=== PATIENT | female | born 1940 | race Caucasian/White ===

== ENCOUNTER → 2017-03-20 | Outpatient (CLI) | payer BC ==
[~2017-03-20] MED LIST: ATV/1 PO; ATV1 PO; CLX/20 PO; LSN20 PO; MULT-506 PO; OMEG10007 PO; TPRSR100 PO
--- NOTE | 2017-03-20 13:00 | DIAGNOSTIC IMAGING REPORT ---
R HIP UNILATERAL 2 VIEWS CLINICAL HISTORY: Right hip pain following fall. COMPARISON: Abdominal series March 26, 2012. FINDINGS: Lumbosacral fusion with discectomy and posterior decompression is incidentally noted. Alignment of the left hip is anatomic. No acute fracture is identified. There is mild osteophytosis of the right hip. IMPRESSION: 1. No acute fracture or dislocation of the right hip. 2. Mild osteoarthritis of the right hip. Electronically signed by: Charles Ca M.D. 03/20/2017 12:59 PM Dictated Date/Time: 03/20/2017 12:58 PM
== END | disposition home or self-care (01) ==
LOC: C.RADBC 12:41
PROVIDERS: ATTEND Family Medicine
DX: M25.551 Pain in right hip (principal); W19.XXXA Unspecified fall, initial encounter

== ENCOUNTER 2020-07-02 06:51 | Observation (INO) ==
[2020-07-02] MEDS ORDERED: oxyCODONE/ACETAMINOPHEN 5mg/325mg TAB PO STA (07:16)
[2020-07-02] MEDS ORDERED: IBUPROFEN 600 MG TAB PO STA (07:16)
--- NOTE | 2020-07-02 07:56 | Emergency Department Note ---
Impression & Plan Acute pain of left knee, Inability to bear weight ED Provider Note CHIEF COMPLAINT: Left knee pain HISTORY OF PRESENT ILLNESS: This 80-year-old female patient presents to the emergency department by private vehicle after sustaining an injury to the left knee yesterday. Patient states that she twisted the knee while making her bed, she is not sure how she twisted it, but she mostly complains of pain on the inside and back of the knee. She was seen in the emergency department yesterday for after the injury and had x-rays, which she reports did not show any fracture. She states "they put me in a knee brace but it was too big and kept sliding off." She states that she has been having severe pain and has not been able to put any weight on the knee. She states that she tried to use her walker at home, but she is not able to get around very well because of the pain. She does have a history of SI joint pain and is prescribed oxycodone for this, she states that she tried her oxycodone and it did not help her pain at all. She has not tried any other medications for the pain. Her last dose of oxycodone was 2 AM this morning. The patient denies any other injuries besides their knee. She describes the pain as throbbing and rates it 10/10. She has not had previous injuries to this knee, but does note that she had surgery to her right knee and states "they messed that one up, it has never been right since." REVIEW OF SYSTEMS: A complete 10 point review of systems was reviewed with the patient with pertinent positives and negatives as per history of present illness. All else were negative. ALLERGIES: Reviewed in chart with the patient MEDICATIONS: Reviewed in chart with the patient PMH: Anxiety, depression, hypertension, dyslipidemia, IBS, chronic SI joint pain, osteoarthritis, history of right knee arthroplasty and lumbar fusion SOCIAL HISTORY: Lives at home with her , she is a current every day smoker PHYSICAL EXAM: Vital Signs: Reviewed Nurse's notes, vital signs stable. CONSTITUTIONAL: Pleasant and cooperative. No acute distress, but appears uncomfortable from pain. Well appearing and well nourished. HEENT: Normocephalic, atraumatic. NECK: Supple, full active range of motion without discomfort. RESPIRATORY: Clear to auscultation bilaterally with no wheezing, crackles, rhonchi or stridor. Equal expansion bilaterally. CARDIOVASCULAR: Regular rate and rhythm with no murmurs, rubs or gallops. Normal peripheral perfusion, 2+ pulses in all 4 extremities. No peripheral edema. GASTROINTESTINAL: Soft, nontender, nondistended. No rebound tenderness or guarding. No palpable masses or HSM. Bowel sounds present in all quadrants. No CVA tenderness bilaterally. MUSCULOSKELETAL: The left knee is moderately swollen. There is no significant ecchymosis. There is a moderate joint effusion present. The patient is tender to palpation throughout the knee, but most tender along the medial and posterior aspect. There is medial joint line tenderness. The patella does not subluxate. Range of motion is severely limited due to pain. Strength of the quads and hamstrings is 4/5. The foot and toes are warm and well-perfused. Dorsalis pedis pulse 2+. Sensation to pain and light touch is intact. Capillary refill less than 2 seconds. INTEGUMENTARY: No rash or other significant dermatologic conditions noted. NEUROLOGIC: Alert and oriented X 4 with normal affect. Cranial nerves II-XII grossly intact. No focal neurologic deficits noted. Normal strength and sensation in all 4 extremities. Normal speech. ED COURSE AND MEDICAL DECISION MAKING: CC: Patient presenting with complaint of left knee pain/swelling DIFFERENTIAL DIAGNOSIS: Includes, but not limited to knee sprain/strain, contusion, hematoma, fracture, dislocation, ligamentous injury, effusion, among others. MEDICATION RECONCILIATION: I attest that I have personally reviewed the patient's current medication list. INITIAL VITAL SIGNS REVIEW: I reviewed the patient's initial vital signs and interpret them as follows: T: Afebrile; BP: Hypertensive; HR: Within normal limits; RR: Within normal limits; Pulse Ox: Within normal limits on room air. MDM SUMMARY: Patient was evaluated at bedside, history and physical exam performed. Patient is alert and oriented, in no acute distress, resting in the stretcher. She does appear to be in a good bit of pain anytime that she moves the knee. She is neurovascularly intact distal to the injury. Review of the patient's chart noting her visit from yesterday, x-rays did not show any acute fracture. Orders were placed for CT imaging of the left knee given the amount of pain and swelling to ensure there is not a missed fracture. I discussed pain management with the patient, she did not want to have an IV, therefore she was given p.o. Percocet as well as p.o. Motrin for her pain. Patient discussed with Dr. Capps, who also evaluated the patient and agrees with my assessment, plan, and disposition. CT imaging again demonstrates a moderate joint effusion without any evidence for fracture or dislocation. 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 Patient reassessed multiple times throughout ED stay, she has remained hemodynamically stable and reports that her pain is somewhat improved after the Percocet and Motrin, but she continues to be very uncomfortable with even minimal movement of the knee. I spoke at length at bedside with the patient and her , he is concerned about taking her home because she is not able to do anything for herself because of the amount of pain she is in and was not able to even get to the bathroom with her walker. Given the amount of pain and resulting ambulatory dysfunction, I did not feel the patient was safe for discharge home and recommended that she be brought into the hospital for pain management and possibly to establish therapy and/or surgical planning. The patient and her were agreeable to this plan. I spoke on the phone with Dr. Girard, [facility] Hospitalist, who agrees to evaluate the patient for the admission. The patient was stable at time of admission. The chart was completed utilizing [employer] Speech voice recognition software. Grammatical errors, random word insertions, pronoun errors, and incomplete sentences are an occasional consequence of this system due to software limitations, ambient noise, and hardware issues. Any formal questions or concerns about the content, text, or information contained within the body of this dictation should be directly addressed to the nurse practitioner for clarification. Past Med/Surg History Medical History Anxiety Carotid artery plaque Chronic SI joint pain Right Collagenous colitis Depression Dyslipidemia HTN (hypertension) Irritable bowel syndrome Lower back pain Osteoarthritis Spinal stenosis Tobacco use Surgical History History of arthroplasty of right knee History of colonoscopy History of lumbar fusion Laminectomy x1 then L3-5 fusion S/P NISH-BSO Social History Smoking Status: Current some day smoker Tobacco Type: Cigarettes Cigarettes Per Day: 4; Second Hand Exposure: No; Hx Alcohol Use: No Hx Substance Use: No Preferred Language: [place]ar[place]uan Communication Ability: Effective Visual Impairment: No Limitations Hearing Ability: Normal Beliefs That Will Affect Care: None marital status: Current Living Situation: Spouse current occupational status: retired Feels Safe at Home: Yes Assistive Devices: None Assistive Devices Comment: partial dentures Allergies Allergies Allergy/AdvReac Type Severity Reaction Status Date / Time Sulfa (Sulfonamide Allergy Unknown Nausea Verified 07/02/20 07:37 Antibiotics) amoxicillin AdvReac Intermediate N/V Verified 07/02/20 07:37 clavulanic acid AdvReac Intermediate N/V Verified 07/02/20 07:37 erythromycin base AdvReac Mild N/V Verified 07/02/20 07:37 nickel AdvReac Mild Redness of Verified 07/02/20 07:37 Skin Opioid Analgesics AdvReac Unknown N/V with Uncoded 07/02/20 07:37 all but morphine Home Meds Home Medications Medication Instructions Recorded Confirmed coenzyme Q10 10 mg capsule 10 mg PO HS cap 12/12/18 07/02/20 metoprolol succinate 100 mg PO QAM 04/16/20 07/02/20 oxycodone 5 mg PO Q6 PRN 04/16/20 07/02/20 lactobacillus combination no.4 0 mmu cells PO QAM 05/01/20 07/02/20 [Probiotic] alprazolam 0.5 mg PO DAILY PRN 07/01/20 07/02/20 budesonide 9 mg PO QAM 07/01/20 07/02/20 dicyclomine 10 mg PO TID PRN 07/01/20 07/02/20 pravastatin 10 mg PO DAILY 07/01/20 07/02/20 Results & Data (ED) Vital Signs Vital Signs - 24 hr 07/02/20 06:57 07/02/20 08:51 07/02/20 10:00 Temperature 37 C Temperature Source Oral Pulse Rate 79 Pulse Rate [Left Finger] 95 H Respiratory Rate 20 18 18 Respiratory Effort / Characteristics Non-Labored Non-Labored Respiratory Depth Shallow Normal Normal Respiratory Pattern Regular Regular Blood Pressure 193/76 H Blood Pressure [Right Arm] 137/56 L 120/87 Blood Pressure Mean 115 Blood Pressure Mean [Right Arm] 83 98 Blood Pressure Position [Right Arm] Lying Sitting Pulse Oximetry 97 96 97 Oxygen Delivery Method Room Air Room Air Room Air Sepsis Recent Fever Within 48 Hours No Sepsis New/Unexplained Change in Mental Status No Sepsis Action Taken by Nursing No Action Required Administered Medications Budesonide (Budesonide Ec 3 Mg Cap) 9 mg PO QAM LAURENCE Stop: 08/01/20 14:01 Last Admin: 07/02/20 15:29 Dose: 9 mg Documented by: [id number] Sodium Chloride (Nss 1000ml) 1,000 mls @ 15 mls/hr IV .Q24H LAURENCE Stop: 08/01/20 14:01 Last Admin: 07/02/20 15:38 Dose: Not Given Documented by: [id number] Ketorolac Tromethamine (Ketorolac Tromethamine 15 Mg/Ml Vial) 15 mg IV Q6H PRN PRN Reason: Pain Stop: 07/07/20 14:01 Last Admin: 07/02/20 16:32 Dose: 15 mg Documented by: [id number] Lactobacillus Acidoph/Casei/Rhamnos (Advanced Probiotic 1250 Mg Capsule) 2 cap PO QAM LAURENCE Stop: 08/01/20 14:29 Last Admin: 07/02/20 15:28 Dose: 2 cap Documented by: [id number] Oxycodone HCl (Oxycodone Hcl Ir 5 Mg Tab (Immediate Release)) 5 mg PO Q6 PRN PRN Reason: Pain Stop: 07/16/20 14:45 Last Admin: 07/02/20 14:50 Dose: 5 mg Documented by: [id number] Pravastatin Sodium (Pravastatin Sod 10 Mg Tab) 10 mg PO DAILY LAURENCE Stop: 08/01/20 14:01 Last Admin: 07/02/20 15:28 Dose: 10 mg Documented by: [id number] Discontinued Medications Ibuprofen (Ibuprofen 600 Mg Tab) 600 mg PO NOW STA Stop: 07/02/20 07:17 Last Admin: 07/02/20 07:23 Dose: 600 mg Documented by: [id number] Morphine Sulfate (Morphine Sulfate 4 Mg/Ml 1 Ml Carp\\Vial) Confirm Administered Dose 4 mg .ROUTE .STK-MED ONE Stop: 07/02/20 12:30 Last Admin: 07/02/20 12:31 Dose: 3 mg Documented by: [id number] Oxycodone/Acetaminophen (Oxycodone/Acetaminophen 5mg/325mg Tab) 1 tab PO NOW STA Stop: 07/02/20 07:17 Last Admin: 07/02/20 07:22 Dose: 1 tab Documented by: [id number] Imaging Data Radiologist's Impression: Knee CT 07/02/20 07:16 CT knee LT wo con HISTORY: 80 years-old Female twisting injury, eval fracture acute left knee pain status post twisting injury COMPARISON: Left knee radiographs 07/01/2020 TECHNIQUE: Multiple axial CT images of the left knee were obtained without the use of IV contrast. Additional 3-D rendering images were generated from a separate workstation and were submitted for review. A dose lowering technique was used consistent with the principals of JENNY. FINDINGS: Chondrocalcinosis with tricompartmental osteoarthritis, moderate within the medial compartment, mild within the lateral compartment and mild to moderate within the patellofemoral joint. Demineralized appearance of the bones. There is artifact which limits the study, likely from the adjacent right knee total joint arthroplasty. There is mild cortical depression involving both the medial and lateral tibial plateaus without discrete fracture line identified. No intra- articular loose body. Moderate sized joint effusion. 3.6 x 2.5 x 6.2 cm Purvis's cyst. Arterial calcifications. IMPRESSION: 1. Moderate size joint effusion without acute fracture or dislocation identified. The study however is limited secondary to artifact, likely from the patient's contralateral knee arthroplasty. If there is clinical concern for an occult fracture, MRI of the knee may be considered. 2. Moderate sized Purvis's cyst. 3. 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 ACT 112: Negative or not required by law. The above report was generated using voice recognition software. It may contain grammatical, syntax or spelling errors. Electronically signed by: Cb Cid M.D. 07/02/2020 8:08 AM Discharge Plan Visit Data Chief Complaint: Knee Injury/Pain Stated Complaint: LT. KNEE PAIN ED Provider: Lilian Capps ED Midlevel Provider: Dayanna Pillai. Discharge Problem: Acute pain of left knee, Inability to bear weight Patient Disposition: Admitted As Inpatient Condition: Good Discharge Instructions Interventions: ED Discharge Assessment Last Done: 07/02/20 13:44
--- NOTE | 2020-07-02 08:10 | CT Scan Report ---
CT knee LT wo con HISTORY: 80 years-old Female twisting injury, eval fracture acute left knee pain status post twistin g injury COMPARISON: Left knee radiographs 07/01/2020 TECHNIQUE: Multiple axial CT images of the left knee were obtained without the use of IV contrast. Ad ditional 3-D rendering images were generated from a separate workstation and were submitted for revie w. A dose lowering technique was used consistent with the principals of JENNY. FINDINGS: Chondrocalcinosis with tricompartmental osteoarthritis, moderate within the medial compartment, mild within the lateral compartment and mild to moderate within the patellofemoral joint. Demineralized ap pearance of the bones. There is artifact which limits the study, likely from the adjacent right knee total joint arthroplasty. There is mild cortical depression involving both the medial and lateral tib ial plateaus without discrete fracture line identified. No intra-articular loose body. Moderate sized joint effusion. 3.6 x 2.5 x 6.2 cm Purvis's cyst. Arterial calcifications. IMPRESSION: 1. Moderate size joint effusion without acute fracture or dislocation identified. The study however i s limited secondary to artifact, likely from the patient's contralateral knee arthroplasty. If there is clinical concern for an occult fracture, MRI of the knee may be considered. 2. Moderate sized Purvis's cyst. 3. 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 ACT 112: Negative or not required by law. The above report was generated using voice recognition software. It may contain grammatical, syntax o r spelling errors. Electronically signed by: Cb Cid M.D. 07/02/2020 8:08 AM
--- NOTE | 2020-07-02 09:51 | Emergency Department Note ---
ED Visit Note I have personally seen and evaluated the patient with the PA. I agree with the diagnosis and management decisions and have been personally involved in the case. Patient is having significant difficulty with the left knee pain, left knee effusion. She is unable to ambulate sufficiently with the immobilizer and to bear any weight. Given her advanced age and mobility issues, the patient will be evaluated by the hospitalist service for further management. Patient and are aware of this plan and agree. Please see GINNY Eugene's notes for further details of the history, physical and visit. .
--- NOTE | 2020-07-02 11:31 | History & Physical Report ---
Date of Service July 02, 2020 Assessment & Plan (1) Internal derangement of left knee: Mrs. Tate is an 80-year-old female with a history of Hypertension, Dyslipidemia, Carotid Artery Plaque, Collagenous Colitis, IBS, Depression / Anxiety, Spinal Stenosis, Chronic SI Joint Pain, and DJD s/p Right TKA who has presented to [facility] ER 2 days in a row with complaints of Severe Left Knee Pain, Swelling, and an Inability to Bear Weight following a twisting left knee injury that occurred on 07/01/20. Patient states that she woke up, stood up out of bed, and then turned around to start making the bed, fluffing the pillows. She apparently turned her upper body, but did not turn her feet -- and when she did this movement she developed a "cracking, crunching" noise/sensation in her left knee. She subsequently developed severe pain in the left knee, a joint effusion, swelling, and an inability to bear weight. Patient was put in a knee brace and was prescribed analgesics and discharged to home. Patient returned to the ER today due to severe left knee pain and inability to walk or bear weight. Patient states that she cannot stay at home because she cannot walk. She states that the knee brace did not fit her leg correctly and kept sliding down her leg -- so she has been unable to wear it. She tried to use her walker at home, but she was not able to get around very well because of the severe knee pain. She does have a history of SI joint pain and is prescribed Oxycodone for this -- she tried her Oxycodone and it did not help her pain at all (last dose of oxycodone was 2 AM this morning). She has not tried any other medications for the pain. The patient denies any other inj uries besides their knee. -- Admit to observation status. -- Consult [facility]. -- Pain Control. -- DVT prophylaxis. -- Ice. (2) Knee Injury: -- As outlined above. (3) HTN (hypertension): -- Continue Toprol XL 100 mg daily. (4) Dyslipidemia: -- Continue Pravastatin 10 mg daily. History of Present Illness Chief Complaint: -- Left Knee Injury/Effusion. -- Unable to walk or bear weight. Primary Care Provider: Neema Pop DO Mrs. Tate is an 80-year-old female with a history of Hypertension, Dyslipidemia, Carotid Artery Plaque, Collagenous Colitis, IBS, Depression / Anxiety, Spinal Stenosis, Chronic SI Joint Pain, and DJD s/p Right TKA who has presented to [facility] ER 2 days in a row with complaints of Severe Left Knee Pain, Swelling, and an Inability to Bear Weight following a twisting left knee injury that occurred on 07/01/20. Patient states that she woke up, stood up out of bed, and then turned around to start making the bed, fluffing the pillows. She apparently turned her upper body, but did not turn her feet -- and when she did this movement she developed a "cracking, crunching" noise/sensation in her left knee. She subsequently developed severe pain in the left knee, a joint effusion, swelling, and an inability to bear weight. Left Knee X-ray on 07/01/20 showed: 1. Soft tissue swelling and joint effusion without acute fracture. 2. Tricompartmental osteoarthritis, moderate within the medial compartment. Patient was put in a knee brace and was prescribed analgesics and discharged to home. Patient states that the knee brace did not fit her leg correctly and kept sliding down her leg -- so she has been unable to wear it. She tried to use her walker at home, but she was not able to get around very well because of the severe knee pain. She does have a history of SI joint pain and is prescribed Oxycodone for this -- she tried her Oxycodone and it did not help her pain at all (last dose of oxycodone was 2 AM this morning). She has not tried any other medications for the pain. The patient denies any other injuries besides their knee. Patient states that she cannot stay at home because she cannot walk. She requests to see Dr. Lopez. Allergies Allergy/AdvReac Type Severity Reaction Status Date / Time Sulfa (Sulfonamide Allergy Unknown Nausea Verified 07/02/20 07:37 Antibiotics) amoxicillin AdvReac Intermediate N/V Verified 07/02/20 07:37 clavulanic acid AdvReac Intermediate N/V Verified 07/02/20 07:37 erythromycin base AdvReac Mild N/V Verified 07/02/20 07:37 nickel AdvReac Mild Redness of Verified 07/02/20 07:37 Skin Opioid Analgesics AdvReac Unknown N/V with Uncoded 07/02/20 07:37 all but morphine Home Medications Medication Instructions Recorded Confirmed Type coenzyme Q10 10 mg capsule 10 mg PO HS cap 12/12/18 07/02/20 History metoprolol succinate 100 mg PO QAM 04/16/20 07/02/20 History oxycodone 5 mg PO Q6 PRN 04/16/20 07/02/20 History lactobacillus combination no.4 0 mmu cells PO QAM 05/01/20 07/02/20 History [Probiotic] alprazolam 0.5 mg PO DAILY PRN 07/01/20 07/02/20 History budesonide 9 mg PO QAM 07/01/20 07/02/20 History dicyclomine 10 mg PO TID PRN 07/01/20 07/02/20 History pravastatin 10 mg PO DAILY 07/01/20 07/02/20 History Past Med/Surg History Medical History Anxiety Carotid artery plaque Chronic SI joint pain Right Collagenous colitis Depression Dyslipidemia HTN (hypertension) Irritable bowel syndrome Lower back pain Osteoarthritis Spinal stenosis Tobacco use Surgical History History of arthroplasty of right knee History of colonoscopy History of lumbar fusion Laminectomy x1 then L3-5 fusion S/P NISH-BSO Social History Smoking Status: Current some day smoker Tobacco Type: Cigarettes Cigarettes Per Day: 4; Second Hand Exposure: No; Hx Alcohol Use: No Hx Substance Use: No Preferred Language: Romanian Communication Ability: Effective Visual Impairment: No Limitations Hearing Ability: Normal Beliefs That Will Affect Care: None marital status: Current Living Situation: Spouse current occupational status: retired Feels Safe at Home: Yes Assistive Devices: None Assistive Devices Comment: partial dentures Review of Systems Review of Systems: All systems reviewed & are unremarkable except as noted in Subjective Physical Exam Physical Exam: GENERAL: Patient in no acute distress. HEENT: Head is atraumatic, normocephalic. EOM's intact. Facies symmetric. No perioral cyanosis. NECK: No JVD. JVP is not elevated. Carotid upstrokes are + 2 bilaterally. No bruits are noted. CHEST/LUNGS: Clear to auscultation throughout all lung urrutia. No wheezes, rales, or crackles. CVS: S1 and S2 are regular without obvious murmurs, gallops, or rubs. PMI is nondisplaced. No lifts, heaves, or thrills. No abdominal aortic or renal bruits. ABDOMINAL EXAM: Bowel sounds are present. No masses, organomegaly, or tenderness. EXTREMITIES: No clubbing or cyanosis. No edema. Intact posterior tibial and radial pulses bilaterally. Left knee with an effusion. Tender to palpation along the anterior medial and anterolateral joint line. Some crepitus noted with even small movements. To painful cooperate with varus and valgus stress or anterior drawer sign. Large Purvis's cyst noted in the posterior left knee NEUROLOGIC EXAM: Patient is awake, alert, and oriented. Pleasant and cooperative. Answers questions appropriately. Speech is clear. Results & Data Results & Data ([facility]) Vital Signs (Past 12 Hours) Vital Signs Temp Pulse Pulse Resp BP BP Pulse Ox 07/02/20 10:00 95 H 18 120/87 97 07/02/20 08:51 18 137/56 L 96 07/02/20 06:57 37 C 79 20 193/[address] SCAN LEFT KNEE 07/02/20: Chondrocalcinosis with tricompartmental osteoarthritis, moderate within the medial compartment, mild within the lateral compartment and mild to moderate within the patellofemoral joint. Demineralized appearance of the bones. There is artifact which limits the study, likely from the adjacent right knee total joint arthroplasty. There is mild cortical depression involving both the medial and lateral tibial plateaus without discrete fracture line identified. No intra- articular loose body. Moderate sized joint effusion. 3.6 x 2.5 x 6.2 cm Purvis's cyst. Arterial calcifications. IMPRESSION: 1. Moderate size joint effusion without acute fracture or dislocation i dentified. The study however is limited secondary to artifact, likely from the patient's contralateral knee arthroplasty. If there is clinical concern for an occult fracture, MRI of the knee may be considered. 2. Moderate sized Purvis's cyst. 3. 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 Code Status & VTE Plan Code Status Full Code VTE Prophylaxis Plan VTE Prophylaxis will be ordered: Yes Supervising Physician Co-Signing Physician Notes PA Supervision Note: I personally saw and examined the patient. I verified all antony points and agree with SURESH Gallegos with the following exceptions and/or additions: Patient presented with acute left knee pain and swelling after twisting it yesterday. She was unable to even wiggle her toes without severe pain. Denies chest pain or shortness of breath, no lightheadedness or fevers. I saw her on the floor after she had her knee aspirated and injected with steroids and she is already feeling significantly better. Had Gary wrap compression in place History and ROS reviewed Vitals reviewed Gen: AAOx3, NAD HEENT: Anicteric sclerae, EOMI CV: RRR no mgr nl S1S2 Pulm: CTAB no wcr Abd: +BS soft NT ND no masses or hernias Ext: No edema, 2+ DP pulses, left knee and compression wrap not removed Skin: No rashes, warm/dry Neuro: Full strength throughout Laboratory values and radiology studies reviewed 80-year-old female here with left knee injury with moderate hemarthrosis effusion secondary to trauma -Appreciate orthopedics management -Pain control -Continue home medications otherwise PT/OT consultations Expect discharge to either home or rehab tomorrow PG Care Time/CCT Total # of Minutes Spent Total Time Spent with Patient: Total time spent is greater than 50% in coordination of care (as documented) at patient's floor/unit and/or counseling patient:45 Coding Level of Care Code 63438 OBS Care - Level 3 Diagnoses Internal derangement of left knee M23.92 Knee Injury S89.92XA Encounter type: initial encounter Laterality: left HTN (hypertension) I10 Dyslipidemia E78.5 Time Spent (min) 50 (1) Knee Injury Encounter type: initial encounter Laterality: left Qualified Code(s): S89.92XA - Unspecified injury of left lower leg, initial encounter
[2020-07-02] MEDS ORDERED: MoRPHine SULFATE 4 MG/ML 1 ML CARP\\VIAL ONE (12:29)
[2020-07-02] MEDS ORDERED: diphenhydrAMINE Capsule 25 MG CAP PO PRN (14:02)
[2020-07-02] MEDS ORDERED: ALPRAZolam 0.5 MG TABLET PO PRN (14:02)
[2020-07-02] MEDS ORDERED: ZOLPIDEM TARTRATE 5 MG TAB PO PRN (14:02)
[2020-07-02] MEDS ORDERED: diphenhydrAMINE 50 MG/ML VIAL IV PRN (14:02)
[2020-07-02] MEDS ORDERED: MAGNESIUM HYDROXIDE SUSP 30 ML UDC PO PRN (14:02)
[2020-07-02] MEDS ORDERED: MoRPHine SULFATE 4 MG/ML 1 ML CARP\\VIAL IV PRN (14:02)
[2020-07-02] MEDS ORDERED: ALUMINUM/MAGNESIUM SUSP 30 ML UDC PO PRN (14:02)
[2020-07-02] MEDS ORDERED: ONDANSETRON INJ 2 MG/ML 2 ML VIAL IV PRN (14:02)
[2020-07-02] MEDS ORDERED: SODIUM CHLORIDE 0.9% 1000ML 1,000 ML IV SCH (14:02)
[2020-07-02] MEDS ORDERED: DICYCLOMINE HCL 10 MG CAP PO PRN (14:02)
[2020-07-02] MEDS: oxyCODONE HCL IR 5 MG TAB (IMMEDIATE RELEASE) PO PRN (14:50)
[2020-07-02] MEDS: PRAVASTATIN SOD 10 MG TAB PO SCH (15:28)
[2020-07-02] MEDS: ADVANCED PROBIOTIC 1250 MG CAPSULE PO SCH (15:28)
[2020-07-02] MEDS: BUDESONIDE EC 3 MG CAP PO SCH (15:29)
[2020-07-02] MEDS: KETOROLAC TROMETHAMINE 15 MG/ML VIAL IV PRN (16:32)
[2020-07-02] MEDS ORDERED: ETHYL CHLORIDE AER SPR 100 ML CAN EXT ONE (17:38)
[2020-07-02] MEDS ORDERED: methylPREDNISolone acetate 80 MG/ML VIAL IM ONE (17:39)
--- NOTE | 2020-07-02 18:28 | Orthopedic Consultation ---
Date of Consultation July 02, 2020 Assessment & Plan (1) Effusion, left knee: Patient was evaluated in her room. Options of compression, aspiration, aspiration and cortisone injection, and physical therapy were discussed. Risks and benefits of each were discussed. Patient elected to proceed with aspiration and cortisone injection, combined with physical therapy. Her history, exam findings, and treatment plan were reviewed with Dr. Ramesh. He is in agreement. Procedure: Patient's left knee was placed in an extended position. Bony landmarks were identified and the superolateral pouch was marked. Skin was cleansed with Betadine x2 and an alcohol swab x1. Skin was anesthetized using ethyl chloride spray. An 18-gauge needle was used to aspirate 37 mL of blood from the knee. Joint was almost fully decompressed. Syringe was then sterilely exchanged and 1 mL of Depo-Medrol was injected (80 mg/mL). Patient tolerated the procedure well. Hemostasis was achieved with a Band-Aid. Gary wrap was applied for compression. She will leave this on until evaluated tomorrow. Or bethany for physical therapy was placed, to assist in range of motion and partial weightbearing using her walker. Gait training will be necessary. She may also have ice applied to the knee to reduce the hemarthrosis. We will reassess in the morning. Suspect that she sheared off articular cartilage, creating the hemarthrosis. This was relayed to the patient. She was reassured that I do not suspect gout or infection at this time. Supervising Physician Co-Signing Physician Notes I saw and examined the patient, reviewed her X-rays and CT scan and agree with the above note. She has a hemarthrosis and exacerbation of her left knee arthritis. She responded well to the aspiration and corticosteroid injection. Should work with PT/OT, and may discharge home with follow-up in our office with Michael Tovar PA-C. Thank you for this consultation. History of Present Illness Reason for Consultation: Left knee pain and effusion Attending Physician: Domi Girard MD History of Present Illness This 80-year-old female seen today in her room. Patient states yesterday while attempting to make her bed, she twisted while standing at the bedside, and felt a grinding sensation in her left knee. She had immediate onset of pain. Swelling developed rapidly. She was seen in the ED and had films. Osteoarthritic changes were noted. She was placed in a knee immobilizer and Gary wrap for comfort. She states her pain did not improve, and in fact worsened throughout the night. She went back to the ED today because of severe pain. Because of this, she was admitted for pain control and further evaluation. Patient has a history of right total knee arthroplasty done many years ago. She states that leg is fine. She denies any left leg ankle or hip pain. She has global pain around the left knee that is worse medially. She states she cannot put any significant weight on the leg secondary to pain. No numbness or tingling. No history of gout. She denies any trauma to the knee prior to her twisting episode. Pain is currently 6/10 when sitting and 10/10 when attempting to bear weight. Allergies Allergy/AdvReac Type Severity Reaction Status Date / Time Sulfa (Sulfonamide Allergy Unknown Nausea Verified 07/02/20 07:37 Antibiotics) amoxicillin AdvReac Intermediate N/V Verified 07/02/20 07:37 clavulanic acid AdvReac Intermediate N/V Verified 07/02/20 07:37 erythromycin base AdvReac Mild N/V Verified 07/02/20 07:37 nickel AdvReac Mild Redness of Verified 07/02/20 07:37 Skin Opioid Analgesics AdvReac Unknown N/V with Uncoded 07/02/20 07:37 all but morphine Home Medications Medication Instructions Recorded Confirmed Type coenzyme Q10 10 mg capsule 10 mg PO HS cap 12/12/18 07/02/20 History metoprolol succinate 100 mg PO QAM 04/16/20 07/02/20 History oxycodone 5 mg PO Q6 PRN 04/16/20 07/02/20 History lactobacillus combination no.4 0 mmu cells PO QAM 05/01/20 07/02/20 History [Probiotic] alprazolam 0.5 mg PO DAILY PRN 07/01/20 07/02/20 History budesonide 9 mg PO QAM 07/01/20 07/02/20 History dicyclomine 10 mg PO TID PRN 07/01/20 07/02/20 History pravastatin 10 mg PO DAILY 07/01/20 07/02/20 History Patient History Medical History Anxiety Carotid artery plaque Chronic SI joint pain Right Collagenous colitis Depression Dyslipidemia HTN (hypertension) Irritable bowel syndrome Lower back pain Osteoarthritis Spinal stenosis Tobacco use Surgical History History of arthroplasty of right knee History of colonoscopy History of lumbar fusion Laminectomy x1 then L3-5 fusion S/P NISH-BSO Social History Smoking Status: Current some day smoker Tobacco Type: Cigarettes Cigarettes Per Day: 4; Second Hand Exposure: No; Hx Alcohol Use: No Hx Substance Use: No Preferred Language: Polish Communication Ability: Effective Visual Impairment: No Limitations Hearing Ability: Normal Beliefs That Will Affect Care: None marital status: Current Living Situation: Spouse current occupational status: retired Feels Safe at Home: Yes Assistive Devices: Denture - Upper, Denture - Lower and Walker Assistive Devices Comment: partial dentures Review of Systems Review of Systems: Unremarkable other than above-stated conditions. A total of 10 systems are reviewed. Physical Exam Physical Exam: General: Well-developed, thin, elderly white female, in no acute distress. Sitting in her bed. Alert and oriented. Conversive. Skin: Warm and dry with good turgor. No rashes or lesions. No ecchymosis or erythema. She does have a large intra-articular effusion in the left knee. No open wounds. Musculoskeletal: Left knee evaluation reveals the above-stated effusion. She has her knee slightly flexed for comfort. Passively I can get her knee into full extension. Passively she gets to around 45 degrees of flexion. She is able to perform a straight leg raise. No palpable defect in the patellar tendon or quadriceps tendon. Stable collateral ligaments with stressing of the MCL and LCL. She states this does generate pain in her knee. She has focal discomfort with palpation over the medial and lateral joint lines. Medial is worse. No pain with palpation over the pes bursa. Patella is well centralized. There is no evidence of hypermobility. She has a rather large Purvis's cyst present posteriorly. Any circumduction of the knee increases her medial and lateral joint line pain. Intact motor function of the ankle without discomfort. Supple active and passive flexion as well as rotation of the hip without discomfort. No pain to palpation over the lower leg or her thigh. Neurologic: Gross sensation is intact across the left leg by soft touch. Peripheral pulses are 2+. Results & Data ([facility]) Vital Signs (Past 12 Hours) Vital Signs Temp Pulse Pulse Resp BP BP Pulse Ox 07/02/20 14:13 36.8 C 71 18 177/71 H 97 07/02/20 14:02 36.8 C 71 18 177/71 H 97 07/02/20 13:30 74 16 154/83 H 98 07/02/20 12:00 66 18 153/68 H 98 07/02/20 10:00 95 H 18 120/87 97 07/02/20 08:51 18 137/56 L 96 07/02/20 06:57 37 C 79 20 193/[address] scan obtained today of the left knee was reviewed. Patient has a moderate joint effusion without acute fracture or dislocation. Moderate sized Purvis's cyst. Tricompartmental osteoarthritis with chondrocalcinosis. Regular radiographic films from yesterday were also reviewed. They show tricompartmental osteoarthritis without evidence of fracture or loose body. Soft tissue swelling and joint effusion without acute fracture.
[2020-07-02] MEDS: ACETAMINOPHEN 325 MG TAB PO PRN (18:54)
[2020-07-02] MEDS: HEPARIN SOD 5,000 UNIT/0.5 ML VIAL SQ SCH (20:13)
[2020-07-02] MEDS ORDERED: NON-FORMULARY MEDICATION (Coenzyme Q10 10 mg capsule) PO SCH (21:00)
[2020-07-03] MEDS: KETOROLAC TROMETHAMINE 15 MG/ML VIAL IV PRN (00:03)
[2020-07-03] MEDS: oxyCODONE HCL IR 5 MG TAB (IMMEDIATE RELEASE) PO PRN (03:36)
[2020-07-03 08:27] LABS: Hematocrit (blood only) 40.3 % (37-47); Hemoglobin 13.4 g/dL (12.0-16.0); Mean Corpuscular Hemoglobin 30.5 pg (25-34); Mean Corpuscular Hgb Conc 33.3 g/dL (32-36); Mean Corpuscular Volume 91.6 fL (80-100); Mean Platelet Volume 10.5 fL (7.4-10.4); Platelet Count 313 K/uL (130-400); RDW Standard Deviation 50.5 fL (36.4-46.3); White Blood Count 12.53 K/uL (4.8-10.8)
[2020-07-03 08:54] LABS: BUN Creatinine Ratio 25.5 (10-20); Creatinine Clr Calc Pharmacy 60.5 ml/min; Est GFR (African American) 97.7 ml/min; Est GFR (Non-African American) 84.3 ml/min; Potassium 4.1 mmol/L (3.5-5.1)
[2020-07-03] MEDS ORDERED: METOPROLOL SUCC 50MG EXT REL TAB PO SCH (09:00)
[2020-07-03] MEDS: PRAVASTATIN SOD 10 MG TAB PO SCH (09:15)
[2020-07-03] MEDS: BUDESONIDE EC 3 MG CAP PO SCH (09:16)
[2020-07-03] MEDS: ADVANCED PROBIOTIC 1250 MG CAPSULE PO SCH (09:16)
[2020-07-03] MEDS: HEPARIN SOD 5,000 UNIT/0.5 ML VIAL SQ SCH ×2 (09:17→09:18)
[2020-07-03] MEDS: ACETAMINOPHEN 325 MG TAB PO PRN (11:48)
--- NOTE | 2020-07-03 14:32 | Discharge Summary ---
Date of Service July 03, 2020 Admission HPI Per Admitting Provider Mrs. Tate is an 80-year-old female with a history of Hypertension, Dyslipidemia, Carotid Artery Plaque, Collagenous Colitis, IBS, Depression / Anxiety, Spinal Stenosis, Chronic SI Joint Pain, and DJD s/p Right TKA who has presented to [facility] ER 2 days in a row with complaints of Severe Left Knee Pain, Swelling, and an Inability to Bear Weight following a twisting left knee injury that occurred on 07/01/20. Patient states that she woke up, stood up out of bed, and then turned around to start making the bed, fluffing the pillows. She apparently turned her upper body, but did not turn her feet -- and when she did this movement she developed a "cracking, crunching" noise/sensation in her left knee. She subsequently developed severe pain in the left knee, a joint effusion, swelling, and an inability to bear weight. Left Knee X-ray on 07/01/20 showed: 1. Soft tissue swelling and joint effusion without acute fracture. 2. Tricompartmental osteoarthritis, moderate within the medial compartment. Patient was put in a knee brace and was prescribed analgesics and discharged to home. Patient states that the knee brace did not fit her leg correctly and kept sliding down her leg -- so she has been unable to wear it. She tried to use her walker at home, but she was not able to get around very well because of the severe knee pain. She does have a history of SI joint pain and is prescribed Oxycodone for this -- she tried her Oxycodone and it did not help her pain at all (last dose of oxycodone was 2 AM this morning). She has not tried any other medications for the pain. The patient denies any other injuries besides their knee. Patient states that she cannot stay at home because she cannot walk. She requests to see Dr. Lopez. Principal Diagnosis Left hemarthrosis from trauma Discharge Exam Constitutional WD/WN, vitals as above Eyes EOM intact bilaterally; no conjunctival abnormality ENMT external ear and nose normal, oropharynx normal Neck trachea midline, no thyromegaly normal visual inspection Respiratory normal respiratory effort, lungs clear to auscultation no respiratory distress Cardiovascular RRR, no murmur, no edema Gastrointestinal (Abdomen) Inspection/Auscultation: abdomen normal to inspection; abdomen not distended Musculoskeletal no cyanosis or clubbing, extremities motor strength 5/5 Knee: + knee abnormal to inspection (Left knee bandaged) Skin no rashes, warm and dry Neurologic moves all extremities and awake Psychiatric Orientation: alert, oriented to person and cooperative Discharge Data Allergies Allergy/AdvReac Type Severity Reaction Status Date / Time Sulfa (Sulfonamide Allergy Unknown Nausea Verified 07/02/20 07:37 Antibiotics) amoxicillin AdvReac Intermediate N/V Verified 07/02/20 07:37 clavulanic acid AdvReac Intermediate N/V Verified 07/02/20 07:37 erythromycin base AdvReac Mild N/V Verified 07/02/20 07:37 nickel AdvReac Mild Redness of Verified 07/02/20 07:37 Skin Opioid Analgesics AdvReac Unknown N/V with Uncoded 07/02/20 07:37 all but morphine Consultations 07/02/20 09:32 ED Decision to Admit Stat 07/02/20 14:02 Consult Orthopedic Surgery Routine Ordered Studies 07/02/20 07:16 CT knee LT wo con Stat Hospital Course (1) Internal derangement of left knee: Seen by orthopedics with withdrawal of blood and injection of steroids into the left knee. - Likely hemarthrosis from trauma. Not on any blood thinners or anticoagulation. - By discharge, feeling significantly better. Able to ambulate. Cleared by PT. Discussed with orthopedic PA who will see her next week. She already has home oxycodone for her back. Encouraged use of Tylenol, NSAIDs, and her home opioid. - Follow up with orthopedics next week (2) Knee Injury: (3) HTN (hypertension): - No inpatient needs (4) Dyslipidemia: - No inpatient needs Total Time Total Time Spent Total Time Spent (In Minutes): 35 Discharge Plan Discharge Items Patient Disposition: Home - Self-Care Reason For Visit: KNEE PAIN/EFFUSION, UNABLE TO BEAR WEIGHT Discharge Diagnosis: Hemarthrosis (blood in the knee joint) Condition on Discharge: Good Activity: Resume your previous activity Non-emergency contact: Primary Care Provider and Surgeon Call non-emergency contact if: your symptoms worsen, your pain is not controlled and your pain is worsening Follow-up/Referrals: Neema Pop DO [Primary Care Provider] - Michael Tovar, PAKvngC [Physician Survey Technician] - (Please follow up with Mr. Tovar in the office next week. Please call their office with worsening pain, fever, redness, or other concerns.) Diet: Regular Addtl Attending Provider Instructions: Ms. Tate, Carlito were admitted to the hospital with blood that had collected in your knee. This was due to the twisting injury that occurred. The orthopedic team took out the blood and injected steroids which are calming the inflammation. As we discussed, you can use Tylenol, ibuprofen (Motrin), and/or your usual oxycodone to help with the pain. Please follow up with Mr. Tovar in the office next week. Please call their office with worsening pain, fever, redness, or other concerns. Pending Studies at Discharge: No Stand-Alone Forms: [facility] Triloq, Opioid Pain Management, Smoking Cessation Medications and DC Order Prescriptions: Continued coenzyme Q10 10 mg capsule 10 mg PO HS RF: 0 metoprolol succinate 100 mg Tablet Extended Release 24 Hr 100 mg PO QAM RF: 0 oxycodone 5 mg tablet 5 mg PO Q6 PRN (Reason: Pain) RF: 0 Probiotic 3 billion cell Capsule 0 mmu cells PO QAM RF: 0 alprazolam 0.5 mg Tablet 0.5 mg PO DAILY PRN (Reason: Anxiety) RF: 0 pravastatin 10 mg tablet 10 mg PO DAILY RF: 0 budesonide 3 mg capsule,delayed,extend.release 9 mg PO QAM RF: 0 dicyclomine 10 mg capsule 10 mg PO TID PRN (Reason: Pain) RF: 0 Discharge Orders: Discharge Order (Routine); Ordered 07/03/20 Ordered By: Mingo Reed/Other Patient Handouts: Preventing Deep Vein Thrombosis Admission Data Admit Date/Time: 07/02/20 11:03 Attending Provider: Mingo Hill Admit Provider: Domi Girard Primary Care Provider: Neema Pop Other Providers: Gene Lopez ; [place] Other Interventions: Discharge Summary Assessment (RN) Last Done: 07/03/20 10:37 Coding Level of Care Code 78555 OBS Care - Discharge Diagnoses Internal derangement of left knee M23.92 Knee Injury S89.92XA Encounter type: initial encounter Laterality: left HTN (hypertension) I10 Dyslipidemia E78.5
== END 2020-07-03 13:11 | disposition home or self-care (01) ==
LOC: ED 06:51 → 3N 06:51 → SUATTDRO 11:03 → 3N 13:44
DX: M17.12 Unilateral primary osteoarthritis, left knee; Z88.1 Allergy status to other antibiotic agents; I10 Essential (primary) hypertension; M23.92 Unspecified internal derangement of left knee; S89.92XA Unspecified injury of left lower leg, initial encounter; F17.210 Nicotine dependence, cigarettes, uncomplicated; Z88.2 Allergy status to sulfonamides; Z79.899 Other long term (current) drug therapy; M25.062 Hemarthrosis, left knee; Z88.5 Allergy status to narcotic agent; E78.5 Hyperlipidemia, unspecified; X50.1XXA Overexertion from prolonged static or awkward postures, initial encounter

== ENCOUNTER 2023-06-29 16:51 | Observation (INO) ==
--- NOTE | 2023-06-29 17:03 | ED Triage Note ---
Date of Service June 29, 2023 Provider in Triage Author: Mariella Quintero History of Present Illness This patient was briefly evaluated while in triage. An abbreviated physical exam was performed. This patient is a 83-year-old Female who presents to the ED for evaluation of diarrhea. She states that she has had 3 episodes of diarrhea. She was previously on Lomotil to help control colitis, but her GI doctor took her off of it about 4 days ago. Denies blood in her stool or vomiting. No abdominal pain. Physical Exam GENERAL: Non-toxic and in no acute distress. HEENT: Pupils equal. No obvious scleral icterus. HEART: Regular rate and rhythm. LUNGS: Clear to auscultation. No accessory muscle use. ABDOMEN: Soft, nontender to palpation. NEURO: Alert and oriented. No obvious neurological deficits on quick neuro exam. MUSCULOSKELETAL: Walks well with a walker. Initial orders for labs and / or imaging were placed and patient was placed in the waiting area until a bed is available. Please see further documentation for the full ED course.
[2023-06-29] MEDS: SODIUM CHLORIDE 0.9% 500 ML IV ONE (17:08)
[2023-06-29 17:30] LABS: Basophils # (auto) 0.02 K/uL (0.00-0.20); Basophils % (auto) 0.3 %; Eosinophils # (auto) 0.05 K/uL (0.00-0.50); Eosinophils % (auto) 0.8 %; Immature Granulocytes # (auto) 0.01 K/uL (0.01-0.20); Immature Granulocytes % (auto) 0.2 %; Lymphocytes # (auto) 1.99 K/uL (1.20-3.40); Lymphocytes % (auto) 30.1 %; Mean Corpuscular Hgb Conc 34.9 g/dL (32.0-36.0); Mean Platelet Volume 10.2 fL (9.4-12.4); Monocytes # (auto) 0.39 K/uL (0.11-0.59); Monocytes % (auto) 5.9 %; Neutrophils # (auto) 4.15 K/uL (1.40-6.50); Neutrophils % (auto) 62.7 %; Platelet Count 444 K/uL (130-400); RDW Coefficient of Variation 13.3 % (11.5-14.5); RDW Standard Deviation 41.5 fL (36.4-46.3); White Blood Count 6.61 K/ul (4.8-10.8)
[2023-06-29 17:42] LABS: Albumin Globulin Ratio 1.1 (0.9-2); Albumin Level 4.3 gm/dl (3.4-5.0); BUN Creatinine Ratio 28.1 (10-20); Bilirubin,Total 0.6 mg/dl (0.2-1.0); Calcium 9.8 mg/dl (8.6-10.3); Creatinine Clr Calc Pharmacy 31.1 ml/min; Est GFR (African American) 69.5 ml/min; Est GFR (Non-African American) 59.9 ml/min; Globulin 3.8 gm/dl (2.5-4.0); Magnesium 1.9 mg/dl (1.7-2.4); Potassium 3.6 mmol/L (3.5-5.1); Total Protein 8.1 gm/dl (6.0-8.3)
[2023-06-29] MEDS: OPTIRAY 320 100ml IV ONE (18:35)
--- NOTE | 2023-06-29 19:01 | CT Scan Report ---
CT abd pelvis wo con CLINICAL HISTORY: diarrhea TECHNIQUE: Helical axial images of the abdomen and pelvis were obtained. Automated dose lowering tech niques and/or adjustment according to patient size were utilized for this exam. This exam was perfor med without intravenous contrast. CT DOSE: 272.98 mGy.cm COMPARISON: Comparison is made to CT abdomen pelvis 06/16/2008 FINDINGS: Lower chest: No acute abnormality. Liver: Unremarkable. No focal lesions are seen. Gallbladder and biliary tree: No calcified gallstones. Normal caliber wall. No intra- or extrahepatic biliary ductal dilation. Pancreas: Unremarkable, no focal lesions. Spleen: Unremarkable. Adrenals: Unremarkable. Kidneys and ureters: Renal cysts are seen. Bladder: Unremarkable. Reproductive organs: Unremarkable. Bowel: The appendix is normal. Lymph nodes Retroperitoneal: Unremarkable. Pelvic: Unremarkable. Mesenteric: Unremarkable. Peritoneum: Normal. Vessels: Atherosclerotic calcifications are seen. Abdominal wall: Unremarkable. Bones: Degenerative changes in the visualized spine. Posterior lumbar fixation hardware is seen. IMPRESSION: No acute abnormalities to explain diarrhea. ACT 112: Negative or not required by law. Electronically signed by: Reggie Pettit M.D. 06/29/2023 6:58 PM
[2023-06-29 19:54] LABS: Appearance Urine Clear (Clear); Bacteria Urine Automated None Seen (None Seen); Bilirubin Urine Negative (Negative); Blood Urine Negative (Negative); Cast Urine Automated 0-2 /lpf (0-2); Color Urine Yellow; Glucose Urine UA Negative (Negative); Ketones Urine Negative (Negative); Leukocyte Esterase Urine 2+ (Negative); Nitrite Urine Negative (Negative); Protein Urine Negative (Negative); RBC Urine Automated 0-2 /hpf (0-2); Specific Gravity Urine 1.006 (1.000-1.030); Urobilinogen Urine Negative (Negative); WBC Urine Automated 0-5 /hpf (0-5); pH Urine 5.5 (4.5-7.5)
--- NOTE | 2023-06-29 20:26 | History & Physical Report ---
Date of Service June 29, 2023 Assessment & Plan (1) Diarrhea: Plan: Diarrhea x 3 episodes on 06/28 Non-bloody, no recent antibiotic use Hx of collagenous colitis Patient was previously on Lomotil, but stopped 2 week ago due to bloating, loss of appetite, and abdominal pain Simethicone 80 mg p.o. q6h as needed for gas pain/GI discomfort Lomotil once daily PRN; patient was previously taking two tablets daily, and would recommend trying to find a good balance for her A.m. CBC, BMP (2) Hyponatremia: Plan: Na 125 on arrival Patient started on HCTZ on June 08 for ankle swelling, which was likely the main contributor Also in the setting of dehydration and GI losses IVF; NSS 1500 mL IV boluses given and will recheck BMP Hold HCTZ Trend BMP (3) Unintentional weight loss: Plan: Patient reports she has lost 70 pounds in the past 2 years (180lb --> 110lb) Multifactorial, but in the setting of GI difficulties and intermittent con stipation/diarrhea causing loss of appetite While patient would likely benefit from a dietitian consult, she would not like one at this time Recommended mirtazapine the patient, as it is likely to help with weight gain and her recent feelings of anxiety/depression (4) Pubic ramus fracture: Plan: Patient fell 3 weeks ago, and reports that she fractured her pubic ramus bone She has been using a walker since PT/OT consulted with weightbearing as tolerated Fall precautions Acetaminophen as needed for pain Patient was considering Prolia shots, but patient's had concerns as it can cause diarrhea (5) Collagenous colitis: Plan: Biopsy December 2019 (6) Anxiety: (7) Depression: Plan Disposition: Obs -admit to [facility] tele DNR/DNI Lactose intolerant diet VTE PPx: Heparin 5000u SQ q12h History of Present Illness Chief Complaint: Dehydration, diarrhea Primary Care Provider: DO Taylor Peace is an 83yo female with PMH of IBS, anxiety, depression, dyslipidemia, collagenous colitis, HTN, tobacco use, and arthritis. Patient presented for d iarrhea on 06/28 x 3 episodes. Patient has an extensive history of collagenous colitis, and recently stopped her Lomotil 2 weeks ago due to bloating, loss of appetite, and abdominal pain secondary to feeling backed up. Initially she felt okay when stopping, but then started to develop abdominal cramping, gas pain, bowel incontinence, and diarrhea (which started today). Nonbloody diarrhea. She describes it as a "chocolate pudding", that is similar to past episodes of being off Lomotil. She also notes that she has had decreased appetite, which has been an ongoing issue for the past 2 years. Unintentional weight loss over the past 2 years from 180lb --> 110lb. patient would not like to see a dietitian while inpatient. No history of eating disorders. Patient does note that she is lactose intolerant. No recent antibiotic use. She did note that she fell 3 weeks ago and fractured her pubic ramus bone; has been using a walker since. She has been using Toradol for the pain, but generally likes to stay away from opioids, as it causes her GI discomfort. Patient was recently started on HCTZ and amlodipine on June 08 for ankle swelling. Patient does endorse infrequent tobacco cigarette smoking; 2-3 cigarettes/day. No recent alcohol use. Patient's vitals are stable at time of admission. ED Course: NSS 500 mL IV ROS: Patient endorses abdominal cramping, GI discomfort, diarrhea, mild bilious vomiting x 1 episode (resolved a week ago), back pain, loss of appetite, and unintentional weight loss. Patient denies fever, chills, lightheadedness, dizziness, headache, chest pain, chest palpitations, SOB, pleuritic chest pain, cough, abdominal pain, nausea, bloody diarrhea, saddle anesthesia, changes in urinary habits, burning with urination, blood in the urine, or numbness or tingling in the arms or legs. Allergies Allergy/AdvReac Type Severity Reaction Status Date / Time Sulfa (Sulfonamide Allergy Unknown Nausea Verified 07/13/22 15:05 Antibiotics) nitrofurantoin Allergy Verified 04/19/23 16:27 amoxicillin AdvReac Intermediate N/V Verified 07/13/22 15:05 clavulanic acid AdvReac Intermediate N/V Verified 07/13/22 15:05 erythromycin base AdvReac Mild N/V Verified 07/13/22 15:05 nickel AdvReac Mild Redness of Verified 07/13/22 15:05 Skin Opioid Analgesics AdvReac Unknown N/V with Uncoded 07/13/22 15:05 all but morphine tetanus AdvReac Unknown Pain Uncoded 07/13/22 15:05 Home Medications Medication Instructions Recorded Confirmed Type metoprolol succinate 100 mg 100 mg PO QAM 04/16/20 06/29/23 History tablet,extended release 24 hr diphenoxylate-atropine 2.5 1 tab PO QID PRN Diarrhea 05/21/21 06/29/23 History mg-0.025 mg tablet budesonide 3 mg 6 mg PO QAM 11/18/21 06/29/23 History capsule,delayed,extended release amlodipine 5 mg tablet 5 mg PO QAM 06/29/23 06/29/23 History clonazepam 0.5 mg tablet 0.5 - 1 mg PO BID PRN Anxiety 06/29/23 06/29/23 History hydrochlorothiazide 12.5 mg capsule 12.5 mg PO QAM 06/29/23 06/29/23 History lisinopril 20 mg tablet 20 mg PO QAM 06/29/23 06/29/23 History mesalamine 1.2 gram tablet,delayed 2.4 g PO HS 06/29/23 06/29/23 History release psyllium 1 ea PO UD 06/29/23 06/29/23 History vibegron 75 mg tablet (Gemtesa) 75 mg PO QAM 06/29/23 06/29/23 History Past Med/Surg History Medical History Collagenous colitis Carotid artery plaque pcp monitors Dyslipidemia Irritable bowel syndrome Osteoarthritis HTN (hypertension) Chronic SI joint pain Right Tobacco use Depression Anxiety Lower back pain Spinal stenosis Surgical History History of colonoscopy S/P NISH-BSO History of lumbar fusion Laminectomy x1 then L3-5 fusion History of arthroplasty of right knee Family History Father Myocardial infarction Denies family history of Ovarian cancer Prostate cancer Breast cancer Colorectal cancer Social History Smoking Status: Current every day smoker Tobacco Type: Cigarettes Cigarettes Per Day: 2; Second Hand Exposure: Yes; Do You Dip or Chew Tobacco: No; Hx Alcohol Use: No Hx Substance Use: No Preferred Language: Armenian Communication Ability: Effective Visual Impairment: No Limitations Hearing Ability: Normal Teacher Asst Required: No Beliefs That Will Affect Care: None marital status: Current Living Situation: Spouse current occupational status: retired Feels Safe at Home: Yes Assistive Devices: Walker Review of Systems Review of Systems: See HPI above Physical Exam Physical Exam: General: no acute distress; non-toxic appearing; cachectic; cooperative; SpO2 97% on RA HEENT: normocephalic, atraumatic; no scleral icterus; PERRLA w/ EOMs intact; moist mucus membrane; vision and hearing grossly intact Neck: supple; no lymphadenopathy; trachea midline Skin: warm, dry without signs of tenting; no cyanosis; no rashes, bruising, lesions, or erythema noted CV: chest wall NTP; RRR; S1/S2 normal; no murmurs/rubs/gallops; pulses intact and symmetric at radial, DP, and PT Lungs: no acute respiratory distress; symmetrical chest wall expansion; clear breath sounds across all lung urrutia w/o adventitious sounds; no wheezing ABD: Soft, NTP; BS present; no rebound/guarding; no distention MSK: no tics or fasciculations; no edema noted in the LEs b/l, nonerythematous Neuro: A&Ox3; normal mood and affect; fluent speech; no focal deficits; sensation grossly intact in the LEs b/l Results & Data Results & Data Vital Signs (Past 12 Hours) Vital Signs Temp Pulse Pulse Resp BP BP Pulse Ox 06/29/23 19:19 60 14 128/68 98 06/29/23 18:09 57 L 06/29/23 17:00 36.8 C 65 20 123/76 98 O2 Del Method 06/29/23 19:19 Room Air 06/29/23 18:09 06/29/23 17:00 Room Air Laboratory Results Abnormal lab results 06/29/23 06/29/23 Range/Units 17:00 19:20 Plt Count 444 H (130-400) K/uL Sodium 125 L (136-145) mmol/L Chloride 91 L (98-107) mmol/L BUN 25 H (6-23) mg/dl BUN/Creatinine Ratio 28.1 H (10-20) Glucose 105 H (70-99(Fasting)) mg/dl Alkaline Phosphatase 261 H (34-104) U/L Ur Leukocyte Esterase 2+ H (Negative) U Epithel Cells (Auto) 3-5 H (0-2) /hpf Diagnostic Findings Abdomen/Pelvis CT 06/29/23 18:20 CT abd pelvis wo con CLINICAL HISTORY: diarrhea TECHNIQUE: Helical axial images of the abdomen and pelvis were obtained. Automated dose lowering techniques and/or adjustment according to patient size were utilized for this exam. This exam was performed without intravenous contrast. CT DOSE: 272.98 mGy.cm COMPARISON: Comparison is made to CT abdomen pelvis 06/16/2008 FINDINGS: Lower chest: No acute abnormality. Liver: Unremarkable. No focal lesions are seen. Gallbladder and biliary tree: No calcified gallstones. Normal caliber wall. No intra- or extrahepatic biliary ductal dilation. Pancreas: Unremarkable, no focal lesions. Spleen: Unremarkable. Adrenals: Unremarkable. Kidneys and ureters: Renal cysts are seen. Bladder: Unremarkable. Reproductive organs: Unremarkable. Bowel: The appendix is normal. Lymph nodes Retroperitoneal: Unremarkable. Pelvic: Unremarkable. Mesenteric: Unremarkable. Peritoneum: Normal. Vessels: Atherosclerotic calcifications are seen. Abdominal wall: Unremarkable. Bones: Degenerative changes in the visualized spine. Posterior lumbar fixation hardware is seen. IMPRESSION: No acute abnormalities to explain diarrhea. ACT 112: Negative or not required by law. Electronically signed by: Reggie Pettit M.D. 06/29/2023 6:58 PM Code Status & VTE Plan Code Status DNR/DNI VTE Prophylaxis Plan VTE Prophylaxis will be ordered: Yes Supervising Physician Co-Signing Physician Notes Patient seen and examined, chart reviewed, case discussed with CHLOÉ Nassar and I agree with the assessment and plan as above. In brief, patient is an 83yo female with history of collagenase colitis, recent fall with pubic ramus fracture, HTN, HLP presenting from home with worsening diarrhea. As above, patient was on Lomotil which was stopped due to developing constipation. Patient subsequently developed recurrence of diarrhea. Hyponatremia noted on intake labs with Na of 125 - was previously 140 in 2020. Patient recently started on HCTZ for blood pressure and LE edema. On exam patient is afebrile, hypertensive otherwise HD stable Skin - intact, no rash HEENT - MMM, Neck supple Heart - +S1/S2, regular, no m/r/g Lungs - CTA, no rales/rhonchi/wheezes Abd - soft, NT/ND Labs and images reviewed Assessment/Plan Hyponatremia - likely secondary to HCTZ + diarrhea + poor oral intake -Will hold HCTZ -1500mL NSS given - repeat Na125 --> 130 Diarrhea - likely secondary to collagenase colitis -Will resume Lomotil at 1 tablet daily -Continue Budesonide Remainder as above PG Care Time/CCT Total # of Minutes Spent Total Time Spent with Patient: Total time spent is greater than 50% in coordination of care (as documented) at patient's floor/unit and/or counseling patient: C[place] [address] INT INP/OBS CARE 3/75MIN Patient Type Established Medical Decision Making Moderate Complexity Diagnoses Diarrhea R19.7 Hyponatremia E87.1 Unintentional weight loss R63.4 Pubic ramus fracture S32.599A Collagenous colitis K52.831 Anxiety F41.9 Depression F32.9
--- NOTE | 2023-06-29 20:44 | Emergency Department Note ---
Impression & Plan Acute hyponatremia, Diarrhea ED Provider Note Diagnosis: Diarrhea, hyponatremia Disposition: Admission CHIEF COMPLAINT: Diarrhea HPI: Patient is an 83-year-old female presenting with complaint of diarrhea and dehydration. Patient states that she was taking off of her excellent follow-up 1 week ago. Patient states she has been having multiple episodes of diarrhea per day. Patient denies any blood in the diarrhea. Patient denies any nausea or vomiting. Patient states she feels dehydrated. Patient denies any abdominal pain at this time. PAST MEDICAL HISTORY: See Below PAST SURGICAL HISTORY: See Below SOCIAL HISTORY: See Below HOME MEDICATIONS: See Below ALLERGIES: See Below VITALS: See Below PHYSICAL EXAMINATION: GENERAL: Well appearing, well nourished, NAD, non-toxic. EYE EXAM: Normal conjunctiva. OROPHARYNX: Moist mucus membranes. Grossly normal dentition. NECK: Supple, LUNGS: Clear to auscultation. Normal chest wall mechanics. HEART: NSR ABDOMEN: Abdomen soft, non-tender, normo-active bowel sounds, no masses, no rebound or guarding BACK: No CVA TTP. SKIN: No rashes and no bruising. UPPER EXTREMITIES: Upper extremities are grossly normal LOWER EXTREMITIES: Grossly normal, no edema. NEURO EXAM: A&O x3,, normal speech, moves all 4 extremities PSYCH: Cooperative MEDICAL DECISION MAKING: History obtained from: Patient ER Course: Patient is an 83-year-old female presenting with complaint of diarrhea. Patient feels dehydrated. Patient given 500 cc of fluid while blood work was drawn. Patient found to have a sodium of 125. Patient's baseline is closer to 140 on previous lab work. Patient's abdomen is soft nondistended. Patient had a CT scan abdomen pelvis ordered and refused the contrast. Patient's dry scan does not show any acute intra-abdominal pathology. Patient's case discussed with hospitalist service for further treatment evaluation. Labs (independently interpreted) are significant for: Sodium 125 Medications given: Normal saline bolus 500 cc Consultants: Hospitalist Triage Nursing notes reviewed and agree them. Vital Signs: reviewed and remarkable for: no significant abnormalities Past Med/Surg History Medical History Anxiety Carotid artery plaque pcp monitors Chronic SI joint pain Right Collagenous colitis Depression Dyslipidemia HTN (hypertension) Irritable bowel syndrome Lower back pain Osteoarthritis Spinal stenosis Tobacco use Surgical History History of arthroplasty of right knee History of colonoscopy History of lumbar fusion Laminectomy x1 then L3-5 fusion S/P NISH-BSO Family History Father Myocardial infarction Denies family history of Ovarian cancer Prostate cancer Breast cancer Colorectal cancer Social History Smoking Status: Never smoker Tobacco Type: Cigarettes Cigarettes Per Day: 3 per day; Second Hand Exposure: Yes; Do You Dip or Chew Tobacco: No; Hx Alcohol Use: No Hx Substance Use: No Preferred Language: Citizen Of [place] Communication Ability: Effective Visual Impairment: No Limitations Hearing Ability: Normal Supervisor [employer] Required: No Beliefs That Will Affect Care: None marital status: Current Living Situation: Spouse current occupational status: retired Feels Safe at Home: Yes Assistive Devices: Glasses Allergies Allergies Allergy/AdvReac Type Severity Reaction Status Date / Time Sulfa (Sulfonamide Allergy Unknown Nausea Verified 07/13/22 15:05 Antibiotics) nitrofurantoin Allergy Verified 04/19/23 16:27 amoxicillin AdvReac Intermediate N/V Verified 07/13/22 15:05 clavulanic acid AdvReac Intermediate N/V Verified 07/13/22 15:05 erythromycin base AdvReac Mild N/V Verified 07/13/22 15:05 nickel AdvReac Mild Redness of Verified 07/13/22 15:05 Skin Opioid Analgesics AdvReac Unknown N/V with Uncoded 07/13/22 15:05 all but morphine tetanus AdvReac Unknown Pain Uncoded 07/13/22 15:05 Home Meds Home Medications Medication Instructions Recorded Confirmed coenzyme Q10 10 mg capsule 10 mg PO HS 12/12/18 07/13/22 metoprolol succinate 100 mg 100 mg PO QAM 04/16/20 07/13/22 tablet,extended release 24 hr lactobacillus combination no.4 3 0 mmu cells PO QAM 05/01/20 07/13/22 billion cell capsule (Probiotic) dicyclomine 10 mg capsule 10 mg PO TID PRN Pain 07/01/20 07/13/22 pravastatin 10 mg tablet 10 mg PO HS 07/01/20 07/13/22 mesalamine 1.2 gram tablet,delayed 1.2 g PO QDD 02/04/22 05/24/23 release diphenoxylate-atropine 2.5 1 tab PO BID PRN Diarrhea 05/21/21 07/13/22 mg-0.025 mg tablet lorazepam 0.5 mg tablet 0.5 mg PO BID 05/21/21 07/13/22 multivitamin 1 tab PO QAM 05/21/21 07/13/22 budesonide 3 mg 9 mg PO DAILY 11/18/21 07/13/22 capsule,delayed,extended release Previous Rx's Medication Instructions Recorded vibegron 75 mg tablet (Gemtesa) 75 mg PO DAILY #90 tabs 11/25/22 cephalexin 500 mg capsule 500 mg PO BID #14 caps 04/19/23 nitrofurantoin 100 mg PO Q12H 7 days #14 caps 04/19/23 monohydrate/macrocrystals 100 mg capsule (Macrobid) Results & Data (ED) Vital Signs Vital Signs - 24 hr 06/29/23 17:00 06/29/23 18:09 06/29/23 19:19 Temperature 36.8 C Temperature Source Temporal Artery Scan Pulse Rate 65 57 L Pulse Rate [Apical] 60 Pulse Rhythm Regular Pulse Rhythm [Apical] Regular Pulse Strength [Apical] Normal Respiratory Rate 20 14 Respiratory Effort / Characteristics Non-Labored Spontaneous Non-Labored Respiratory Depth Normal Normal Respiratory Pattern Regular Blood Pressure 123/76 Blood Pressure [Left Arm] 128/68 Blood Pressure Mean 91 Blood Pressure Mean [Left Arm] 88 Pulse Oximetry 98 98 Oxygen Delivery Method Room Air Room Air Sepsis Recent Fever Within 48 Hours No Sepsis New/Unexplained Change in Mental Status No Sepsis Action Taken by Nursing No Action Required Laboratory Data 06/29/23 17:00 06/29/23 17:00 Lab Results 06/29/23 06/29/23 Range/Units 17:00 19:20 WBC 6.61 (4.8-10.8) K/ul RBC 5.00 (4.20-5.40) M/uL Hgb 15.0 (12.0-16.0) g/dl Hct 43.0 (37.0-47.0) % MCV 86.0 (80.0-100.0) fL MCH 30.0 (25.0-34.0) pg MCHC 34.9 (32.0-36.0) g/dL RDW Std Deviation 41.5 (36.4-46.3) fL RDW Coeff of Nelda 13.3 (11.5-14.5) % Plt Count 444 H (130-400) K/uL MPV 10.2 (9.4-12.4) fL Immature Gran % (Auto) 0.2 % Neut % (Auto) 62.7 % Lymph % (Auto) 30.1 % [place] % (Auto) 5.9 % Eos % (Auto) 0.8 % Baso % (Auto) 0.3 % Neut # (Auto) 4.15 (1.40-6.50) K/uL Lymph # (Auto) 1.99 (1.20-3.40) K/uL [place] # (Auto) 0.39 (0.11-0.59) K/uL Eos # (Auto) 0.05 (0.00-0.50) K/uL Baso # (Auto) 0.02 (0.00-0.20) K/uL Immature Gran # (Auto) 0.01 (0.01-0.20) K/uL Sodium 125 L (136-145) mmol/L Potassium 3.6 (3.5-5.1) mmol/L Chloride 91 L (98-107) mmol/L Carbon Dioxide 25 (21-32) mmol/L Anion Gap 9 (3-11) BUN 25 H (6-23) mg/dl Creatinine 0.89 (0.6-1.2) mg/dl Est Cr Clr Drug Dosing 31.1 ml/min Est GFR ( Amer) 69.5 ml/min Est GFR (Non-Af Amer) 59.9 ml/min BUN/Creatinine Ratio 28.1 H (10-20) Glucose 105 H (70-99(Fasting)) mg/dl Calcium 9.8 (8.6-10.3) mg/dl Magnesium 1.9 (1.7-2.4) mg/dl Total Bilirubin 0.6 (0.2-1.0) mg/dl AST 19 (13-39) U/L ALT 13 (7-52) U/L Alkaline Phosphatase 261 H (34-104) U/L Total Protein 8.1 (6.0-8.3) gm/dl Albumin 4.3 (3.4-5.0) gm/dl Globulin 3.8 (2.5-4.0) gm/dl Albumin/Globulin Ratio 1.1 (0.9-2) Urine Color Yellow Urine Appearance Clear (Clear) Urine pH 5.5 (4.5-7.5) Ur Specific [place] 1.006 (1.000-1.030) Urine Protein Negative (Negative) Urine Glucose (UA) Negative (Negative) Urine Ketones Negative (Negative) Urine Blood Negative (Negative) Urine Nitrite Negative (Negative) Urine Bilirubin Negative (Negative) Urine Urobilinogen Negative (Negative) Ur Leukocyte Esterase 2+ H (Negative) Urine WBC (Auto) 0-5 (0-5) /hpf Urine RBC (Auto) 0-2 (0-2) /hpf U Hyaline Cast (Auto) 0-2 (0-2) /lpf U Epithel Cells (Auto) 3-5 H (0-2) /hpf Urine Bacteria (Auto) None Seen (None Seen) Administered Medications Discontinued Medications Sodium Chloride (Nss) 500 mls @ 999 mls/hr IV .Q31M ONE Stop: 06/29/23 17:33 Last Infusion: 06/29/23 17:42 Dose: Infused Documented By: Admin: 06/29/23 17:08 Dose: 999 mls/hr Documented By: CARRILLO Ioversol (Optiray 320 100ml) 94 ml IV ONCE ONE Stop: 06/29/23 18:35 Last Admin: 06/29/23 18:35 Dose: 94 ml Documented By: PEÑA Imaging Data Radiologist's Impression: Abdomen/Pelvis CT 06/29/23 18:20 CT abd pelvis wo con CLINICAL HISTORY: diarrhea TECHNIQUE: Helical axial images of the abdomen and pelvis were obtained. Automated dose lowering techniques and/or adjustment according to patient size were utilized for this exam. This exam was performed without intravenous contrast. CT DOSE: 272.98 mGy.cm COMPARISON: Comparison is made to CT abdomen pelvis 06/16/2008 FINDINGS: Lower chest: No acute abnormality. Liver: Unremarkable. No focal lesions are seen. Gallbladder and biliary tree: No calcified gallstones. Normal caliber wall. No intra- or extrahepatic biliary ductal dilation. Pancreas: Unremarkable, no focal lesions. Spleen: Unremarkable. Adrenals: Unremarkable. Kidneys and ureters: Renal cysts are seen. Bladder: Unremarkable. Reproductive organs: Unremarkable. Bowel: The appendix is normal. Lymph nodes Retroperitoneal: Unremarkable. Pelvic: Unremarkable. Mesenteric: Unremarkable. Peritoneum: Normal. Vessels: Atherosclerotic calcifications are seen. Abdominal wall: Unremarkable. Bones: Degenerative changes in the visualized spine. Posterior lumbar fixation hardware is seen. IMPRESSION: No acute abnormalities to explain diarrhea. ACT 112: Negative or not required by law. Electronically signed by: Reggie Pettit M.D. 06/29/2023 6:58 PM Discharge Plan Visit Data Chief Complaint: Dehydration Stated Complaint: DIARREA, RECENT MED CHANGE, ABD PAIN, DEHYDRATION ED Provider: Kulwinder Santana Discharge Problem: Acute hyponatremia, Diarrhea Forms Stand Alone Forms: My [facility] [place] [employer] Prescriptions Prescriptions: No Action coenzyme Q10 10 mg capsule 10 mg PO HS Gemtesa 75 mg tablet 75 mg PO DAILY Qty: 90 3RF nitrofurantoin monohyd/m-cryst [Macrobid] 100 mg capsule 100 mg PO Q12H 7 Days Qty: 14 0RF Rx Instructions: must administer with a meal/food cephalexin 500 mg capsule 500 mg PO BID Qty: 14 0RF budesonide 3 mg capsule,delayed,extend.release 9 mg PO DAILY metoprolol succinate 100 mg Tablet Extended Release 24 Hr 100 mg PO QAM Probiotic 3 billion cell Capsule 0 mmu cells PO QAM multivitamin Tablet 1 tab PO QAM diphenoxylate-atropine 2.5-0.025 mg tablet 1 tab PO BID PRN (Reason: Diarrhea) lorazepam 0.5 mg tablet 0.5 mg PO BID pravastatin 10 mg tablet 10 mg PO HS dicyclomine 10 mg capsule 10 mg PO TID PRN (Reason: Pain) mesalamine 1.2 gram Tablet,Delayed Release (Dr/Ec) 1.2 g PO QDD Referrals Referrals: Neema Pop DO [Primary Care Provider] -
[2023-06-29] MEDS: SODIUM CHLORIDE 0.9% 1,000 ML IV ONE (21:37)
[2023-06-29] MEDS ORDERED: ACETAMINOPHEN 325 MG TAB PO PRN (22:32)
[2023-06-29] MEDS ORDERED: DIPHENOXYLATE/ATROPINE 2.5/0.025MG TAB PO PRN (22:32)
[2023-06-29 23:12] LABS: BUN Creatinine Ratio 29.6 (10-20); Calcium 9.2 mg/dl (8.6-10.3); Est GFR (African American) 91.3 ml/min; Est GFR (Non-African American) 78.8 ml/min
[2023-06-30] MEDS: clonazePAM 0.5 MG TAB PO PRN (00:04)
[2023-06-30] MEDS: oxyCODONE HCL IR 5 MG TAB (IMMEDIATE RELEASE) PO STA (05:52)
[2023-06-30] MEDS: SIMETHICONE 80 MG CHEW PO PRN (05:52)
[2023-06-30] MEDS: METOPROLOL SUCC 50MG EXT REL TAB PO SCH (08:12)
[2023-06-30] MEDS: lisinopril 20 MG TAB PO SCH (08:12)
[2023-06-30] MEDS: BUDESONIDE EC 3 MG CAP PO SCH (08:13)
[2023-06-30] MEDS: amLODIPine BESYLATE 5 MG TAB PO SCH (08:13)
[2023-06-30] MEDS: VIBEGRON 75 MG TAB PO SCH (08:13)
[2023-06-30 08:37] LABS: Basophils # (auto) 0.04 K/uL (0.00-0.20); Basophils % (auto) 0.9 %; Eosinophils # (auto) 0.09 K/uL (0.00-0.50); Hematocrit (blood only) 34.6 % (37.0-47.0); Hemoglobin 12.2 g/dl (12.0-16.0); Immature Granulocytes # (auto) 0.01 K/uL (0.01-0.20); Immature Granulocytes % (auto) 0.2 %; Lymphocytes # (auto) 1.53 K/uL (1.20-3.40); Lymphocytes % (auto) 34.6 %; Mean Corpuscular Hemoglobin 30.3 pg (25.0-34.0); Mean Corpuscular Hgb Conc 35.3 g/dL (32.0-36.0); Mean Corpuscular Volume 85.9 fL (80.0-100.0); Mean Platelet Volume 10.2 fL (9.4-12.4); Monocytes # (auto) 0.41 K/uL (0.11-0.59); Monocytes % (auto) 9.3 %; Neutrophils # (auto) 2.34 K/uL (1.40-6.50); Platelet Count 324 K/uL (130-400); RDW Coefficient of Variation 13.2 % (11.5-14.5); RDW Standard Deviation 41.7 fL (36.4-46.3); Red Blood Count 4.03 M/uL (4.20-5.40); White Blood Count 4.42 K/ul (4.8-10.8)
--- OUTSIDE RECORDS SUMMARY | 2023-06-30 08:46 | External Medical Summary | Summary of Care ---
Author Name Unknown Organization [facility] Address [address] [place] [address] Phone [phone] Care Team Providers Care Precision Lathe Operator Name Role Phone Neema Pop DO Primary Care Provider Reason for Visit * Reason Comments Outpatient Testing Encounter Details Date Type Department Care Team (Late st Contact Info) Description 06/15/2023 1:00 PM EDT [facility], [facility] [address] [facility] [id number] [facility] [address] [place] [address] HTN, goal below 140/90 Allergies Active Allergy Reactions Criticality Noted Date Comments Amoxicillin-Pot Clavulanate Other (Please comment) Low 03/21/2019 Stomach ache Sulfamethoxazole-Trimetho prim Other (Please comment) Low 03/21/2019 Stomach ache Ciprofloxacin Unknown 03/21/2019 Pt does not remember Doxycycline Other (Please comment) Low 03/21/2019 Stomach ache Metronidazole Other (Please comment) Low 03/21/2019 Stomach ache Lactose Diarrhea High 09/23/2021 Nitrofurantoin Unknown 03/21/2019 Pt does not remember Other Allergy (See Comments) Diarrhea Medium 03/02/2020 Oral Magnesium. Sulfa Antibiotics Other (Please comment) Low 03/21/2019 Stomach ache documented as of this encounter (statuses as of 06/15/2023) Medications Medication Sig Dispensed Refills Start Date End Date Status Multivitamin Adult Oral Tablet Take by mouth. 0 Active Diphenoxylate-Atropi ne 2.5-0.025 MG Oral Tablet (Lomotil) Take 1 Tablet by mouth 4 times a day as needed for Diarrhea. 120 Tablet 0 02/02/2021 Active Budesonide 3 MG Oral Capsule Delayed Release Particles (Entocort EC) Take 3 tablets by mouth daily then taper as instructed. 90 Capsule 1 02/04/2021 Active Dicyclomine HCl 10 MG Oral Capsule (Bentyl) Take 1 Capsule by mouth 2 times a day as needed. 0 09/22/2021 Active Lisinopril 20 MG Oral Tablet (Prinivil) Take 1 Tablet by mouth in the morning. 0 09/15/2021 Active Mesalamine 1.2 GM Oral Tablet Delayed Release (Lialda) Take 2 Tablets by mouth in the morning. 0 09/09/2021 Active Metamucil 28.3 % Oral Powder (Psyllium) Take 2 Scoops by mouth in the morning and 2 Scoops at noon and 2 Scoops before bedtime. Pt takes 2 tsp three times daily.. 0 03/28/2023 Active clonazePAM 0.5 MG Oral Tablet (KlonoPIN) 1 Tablet 2 times a day as needed for Anxiety. 0 11/23/2022 Active Vibegron 75 MG Oral Tablet (Gemtesa) Take 1 Tablet by mouth in the morning. 0 09/19/2022 Active Metoprolol Succinate ER 100 MG Oral Tablet Extended Release 24 Hour (toPROL XL) Take 1 Tablet by mouth in the morning. 0 03/02/2023 Active amLODIPine Besylate 5 MG Oral Tablet (Norvasc) Take 1 Tablet by mouth in the morning. 90 Tablet 3 06/06/2023 Active hydroCHLOROthiazide 12.5 MG Oral Capsule Take 1 Capsule by mouth in the morning. 90 Capsule 3 06/06/2023 Active Acetaminophen-Codein e 300-30 MG Oral Tablet Take 1 Tablet by mouth every 4 hours as needed for Pain, Severe. May break tablet in half if too strong 20 Tablet 0 06/12/2023 Active Acetaminophen-Codein e 300-30 MG Oral Tablet Take 1 Tablet by mouth every 4 hours as needed for Pain, Severe. Break tablets in half if too strong 4 Tablet 0 06/12/2023 Active documented as of this encounter (statuses as of 06/15/2023) Active Problems Problem Noted Date Diagnosed Date History of substance abuse 05/31/2023 Irritable bowel syndrome 05/31/2023 Ankle swelling 05/31/2023 Cigarette smoker 05/31/2023 Anisocoria 05/31/2023 Hypokalemia 05/31/2023 PTSD (post-traumatic stress disorder) 01/20/2022 Collagenous colitis 01/04/2022 Uncontrolled hypertension 09/15/2021 Anxiety 06/22/2020 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 documented as of this encounter (statuses as of 06/15/2023) Immunizations Name Administration Dates Next Due TDAP (age 10 and older)(Boostrix) 09/23/2021 09/24/2031 documented as of this encounter Social History Tobacco Use Types Packs/Day Years Used Date Smoking Tobacco: Former Cigarettes 0.3 69.3 1 955 - 05/29/2023 Passive Smoke Exposure: Current Smokeless Tobacco: Never Comments:1/day Alcohol Use Standard Drinks/Week Comments Not Currently 0 (1 standard drink = 0.6 oz pur e alcohol) AUDIT-C Answer Date Recorded Q1: How often do you have a drink containing alc ohol? Never 06/03/2020 Average Number of Drinks Not on file 021 Frequency of Binge Drinking Not on file 05/21 Sex and Gender Information Value Date Recorded Sex Assigned at Not on file Gender Identity Not on file Sexual Orientation Not on file Job Start Date Occupation Industry Not on file Not on file Not on file documented as of this encounter Functional Status Functional Status Response Date of Assess ment Are you deaf or do you have serious difficulty hearing? No 05/31/2023 Are you blind or do you have serious difficulty seeing, even when wearing glasses? No 05/31/2023 Do you have serious difficul ty walking or climbing stairs? (5 years old or older) No-i go a little slower than i used too - 05/31/2023 Do you have difficulty dress ing or bathing? (5 years old or older) No 05/31/2023 Because of a physical, menta l, or emotional condition, do you have difficulty doing errands alone such as visiting a doctor s office or shopping? (15 years old or older) No 05/31/2023 Cognitive Status Response Date of Assessm ent Because of a physical, menta l, or emotional condition, do you have serious difficulty concentrating, remembering, or making decisions? (5 years old or older) No 05/31/2023 documented as of this encounter Plan of Treatment Upcoming Encounters Date Type Department Care Team (Late st Contact Info) Description 12/12/2023 1:30 PM EDT Office Visit Cardiology, [facility] [address] [place] [address] [place], [address] [place] [address] Pending Results Name Type Priority Associated Diagnoses Date /Time BASIC METABOLIC PANEL Lab Routine HTN, goal below 140/90 06/15/2023 12:55 PM EDT Health Maintenance Due Date Last Done Comments DXA Scan 1940 Depression Screening 1952 Albumin/Creatinine Ratio 1958 Zoster Vaccines (2 of 3) 12/28/2011 11/02/2011 COVID-19 Vaccine ( - season) 2022 12/14/2020, 06/05/2020, 05/15/2020 Influenza Vaccine (FLU shot) (Season Ended) 2023 GFR 06/05/2024 06/06/2023, 05/21, 05/31/2023, Additional history exists DTaP,Tdap,and Td Vaccines (3 - Td or Tdap) 09/24/2031 09/23/2021, 10/10/2014 Pneumococcal Vaccine: 65+ Years Completed 11/24/2016, 01/01/2008, 11/20/2004 GARDASIL-HPV IMMUNIZATION SERIES Aged Out No longer eligible based on patient's age to complete this topic Hepatitis B Aged Out No longer eligi ble based on patient's age to complete this topic MENINGOCOCCAL (MENACTRA/MENVEO) Aged Out No longer eligible based on patient's age to complete this topic documented as of this encounter Medical Devices Not on filedocumented as of this encounter Visit Diagnoses Diagnosis HTN, goal below 140/90 Unspecified essential hypertension documented in this encounter Advance Directives Latest Code Status on File Code Status Date Activated Date Inactivated Comments Full Code 05/31/2023 1:21 AM 06/01/2023 5:50 PM This order reflects the patients wishes and were consensually agreed upon. Question Answer Comments Discussion of Advance Directives occurred with: Patient Care Teams Precision Lathe Operator Relationship Specialty Start Date End Date Neema Pop DO [address] [place] [address] [place] [address] PCP - General 09/03/07 documented as of this encounter
--- OUTSIDE RECORDS SUMMARY | 2023-06-30 08:46 | External Medical Summary | Summary of Care ---
Author Name Unknown Organization [facility] Address [address] [place] [address] Phone [phone] Care Team Providers Care Breast Trimmer Name Role Phone Neema Pop DO Primary Care Provider Reason for Visit * Reason Onset Date Comments Films 06/21/2023 Encounter Details Date Type Department Care Team (Late st Contact Info) Description 06/21/2023 Telephone Radiology Film File [address] [place] [address] Rosa Maria Fry PA-C [address] [facility] [place] [address] Films Allergies Active Allergy Reactions Criticality Noted Date [...] as of this encounter (statuses as of 06/21/2023) Medications Medication Sig Dispensed Refills Start Date [...] as of this encounter (statuses as of 06/21/2023) Active Problems Problem Noted Date Diagnosed Date History of substance abuse 05/31/2023 Irritable bowel syndrome 05/31/2023 Ankle swelling 05/31/2023 Cigarette smoker 05/31/2023 Anisocoria 05/31/2023 Hypokalemia 05/31/2023 PTSD (post-traumatic stress disorder) 01/20/2022 Collagenous colitis 01/04/2022 Uncontrolled hypertension 09/15/2021 Anxiety 06/22/2020 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 documented as of this encounter (statuses as of 06/21/2023) Immunizations Name Administration Dates Next Due TDAP [...] No 05/31/2023 documented as of this encounter Miscellaneous Notes * Telephone Encounter - Wendy Rosario OSA - 06/21/2023 4:07 PM EDT [facility] requesting 06-09-[address] hip/pelvis images be pushed to their system. [place] Authorization to Release on file. Images pushed to [facility] external connection through [employer] Report(s) faxed to [phone]. Successful fax confirmation received. documented in this encounter Plan of Treatment Upcoming Encounters Date Type Department Care Team (Late st Contact Info) Description 12/12/2023 1:30 PM EDT Office Visit Cardiology, [facility] [address] [place] [address] [address], [address] [place] [address] Health Maintenance Due Date Last Done Comments DXA Scan 1940 Depression Screening 1952 Albumin/Creatinine Ratio 1958 Zoster Vaccines (2 of 3) 12/28/2011 11/02/2011 COVID-19 Vaccine ( season) 2022 12/14/2020, 06/05/2020, 05/15/2020 Influenza Vaccine (FLU shot) (Season Ended) 2023 GFR 06/14/2024 06/15/2023, 05/21, 06/01/2023, Additional history exists DTaP,Tdap,and Td Vaccines (3 [...] Not on filedocumented as of this encounter Advance Directives Latest Code Status on File Code Status Date Activated Date Inactivated Comments Full Code 05/31/2023 1:21 AM 06/01/2023 5:50 PM This order reflects the patients wishes and were consensually agreed upon. Question Answer Comments Discussion of Advance Directives occurred with: Patient Care Teams Breast Trimmer Relationship Specialty Start Date End Date Neema Pop DO [address] [place] [address] [place] [address] PCP - General 09/03/07 documented as of this encounter
--- OUTSIDE RECORDS SUMMARY | 2023-06-30 08:46 | External Medical Summary | Summary of Care ---
Author Name Unknown Organization [facility] Address [address] [facility] [place] [address] Phone [phone] Care Team Providers Care Collection Manager Name Role Phone Neema Pop DO Primary Care Provider Reason for Visit * Reason Onset Date Comments Test Results 06/19/2023 Encounter Details Date Type Department Care Team (Late st Contact Info) Description 06/19/2023 Telephone Cardiology, [facility] [address] [place] [address] Shira Garcia CRNP [address] [facility] [place] [address] Test Results Allergies Active Allergy Reactions Criticality Noted Date [...] as of this encounter (statuses as of 06/19/2023) Medications Medication Sig Dispensed Refills Start Date [...] as of this encounter (statuses as of 06/19/2023) Active Problems Problem Noted Date Diagnosed Date History of substance abuse 05/31/2023 Irritable bowel syndrome 05/31/2023 Ankle swelling 05/31/2023 Cigarette smoker 05/31/2023 Anisocoria 05/31/2023 Hypokalemia 05/31/2023 PTSD (post-traumatic stress disorder) 01/20/2022 Collagenous colitis 01/04/2022 Uncontrolled hypertension 09/15/2021 Anxiety 06/22/2020 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 Reviewed results of labs with patient. Verbalizing understanding. Reports eating/drinking well without issue. Advised to have repeat lab work in 1 week. Patient did inquire about potassium level, advised within normal limits. 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 Lab order placed. Requests call later this week to assist in scheduling appointment for lab. Reminder set. * Telephone Encounter - Coreen Rhodes RN - 06/19/2023 11:00 AM EDT ----- Message from Genesis Poe LPN sent at 06/16/2023 9:13 AM EDT ----- ----- Message ----- From: Shira Garcia CRNP Sent: 06/15/2023 3:42 PM EDT To: Alfred Holguin Cardio Nurse Pool/Class Please notify patient that I have reviewed her labs in coverage of Dr. Silveira. Her labs were normal with exception of a slightly low sodium. Would like her to have repeat labs in one week. FYI it looks like she had a recent fall in the past week and sustained a pubic fracture. Can you please makesure that she is eating and drinking ok. Thank you, Shira documented in this encounter Plan of Treatment Upcoming Encounters Date Type Department Care Team (Late st Contact Info) Description 12/12/2023 1:30 PM EDT [facility] [address] [place] [address] Fly Silveira DO [address] [place] [address] Health Maintenance Due Date Last Done Comments DXA Scan 1940 Depression Screening 1952 Albumin/Creatinine Ratio 1958 Zoster Vaccines (2 of 3) 12/28/2011 11/02/2011 COVID-19 Vaccine (4 - season) 2022 12/14/2020, 06/05/2020, 05/15/2020 Influenza [...] as of this encounter Visit Diagnoses Diagnosis Hyponatremia- Primary Hyposmolality and/or hyponatremia documented in this encounter Advance Directives Latest Code Status on File Code Status Date Activated Date Inactivated Comments Full Code 05/31/2023 1:21 AM 06/01/2023 5:50 PM This order reflects the patients wishes and were consensually agreed upon. Question Answer Comments Discussion of Advance Directives occurred with: Patient Care Teams Collection Manager Relationship Specialty Start Date End Date Neema Pop DO [address] [place] [address] PCP - General 09/03/07 documented as of this encounter
--- OUTSIDE RECORDS SUMMARY | 2023-06-30 08:46 | External Medical Summary | Summary of Care ---
Author Name Unknown Organization [facility] Address [address] [place] [address] Phone [phone] Care Team Providers Care Patient Registration Representative Name Role Phone Neema Pop Primary Care Provider Reason for Visit * Reason Comments Pain * Auth/Cert Specialty Diagnoses / Procedures Referred By Contac t Referred To Contact [facility] [address] [place] [address] Phone: [phone] Emergency Medicine [facility] [address] [place] [address] Referral ID Status Reason Start Date Expiration Date Visits Re quested Visits Authorized [id number] Encounter Details Date Type Department Care Team (Late st Contact Info) Description 06/12/2023 2:45 PM EDT - 06/12/2023 3:27 PM EDT Emergency [facility] Emergency Department ([place]) [address] [place] [address] Vinayak Gonzales MD [address] [place] [address] Acute pain in female pelvis (Primary Dx); Closed fracture of inferior pubic ramus, unspecified laterality, with routine healing, subsequent encounter Discharge Disposition: Home - Self Care Allergies Active Allergy Reactions Criticality Noted Date [...] as of this encounter (statuses as of 06/13/2023) Medications Medication Sig Dispensed Refills Start Date End Date Status Multivitamin Adult Oral Tablet Take by mouth. 0 Act anastasia Diphenoxylate-Atr opine 2.5-0.025 MG Oral Tablet (Lomotil) Take 1 [...] the morning. 90 Tablet 3 06/06/2023 Active hydroCHLOROthiazi de 12.5 MG Oral Capsule Take 1 Capsule by mouth in the morning. 90 Capsule 3 06/06/2023 Active Acetaminophen-Cod eine 300-30 MG Oral Tablet Take 1 Tablet by mouth every 4 hours as needed for Pain, Severe. May break tablet in half if too strong 20 Tablet 0 06/12/2023 Active oxyCODONE HCl 5 MG Oral Tablet (Oxy IR) Take 1 Tablet by mouth every 6 hours as needed for Pain, Moderate for up to 4 days. 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 documented as of this encounter (statuses as of 06/13/2023) Immunizations Name Administration Dates Next Due TDAP [...] on file documented as of this encounter Last Filed Vital Signs Vital Sign Reading Time Taken Comments Blood Pressure 119/67 06/12/2023 3:25 PM EDT Pulse 84 06/12/2023 3:25 PM EDT Temperature 36.7 C (98.1 F) 06/12/2023 3:25 PM ED T Respiratory Rate 18 06/12/2023 3:25 PM EDT Oxygen Saturation 97% 06/12/2023 1:49 PM EDT Inhaled Oxygen Concentration - - Weight 49.9 kg (110 lb) 06/12/2023 1:49 PM EDT Height 162.6 cm (5' 4") 06/12/2023 1:49 PM EDT Body Mass Index 18.88 06/12/2023 1:49 PM EDT documented in this encounter Functional Status Functional Status Response [...] No 05/31/2023 documented as of this encounter Discharge Instructions * Discharge Instructions* Vinayak Gonzales MD - 06/12/2023 3:22 PM EDT Throughout oxycodone and never take that again, it was likely giving you side effects while it is not controlling your pain at all. Codeine is VERY CONSTIPATING. You should take half or quarter tabs of this medication if possible, and take an entire glass of metamucil on any day you take EVEN ONE codeine pain pill. Take as few ofthese pain pills as possible and stop this pain medication as soon as you can. Call your doctor tomorrow to review recent events and prescription change and ask when they want tosee you again come back if any warning signs or problems documented in this encounter ED Notes * Darlene Denis RN - 06/12/2023 1:47 PM EDT Pain in pelvis. Fell Monday afternoon. Was told she has a pelvic fracture. Pain is out of control. Oxycodone is not helping with the pain. Last dose of oxycodone was this AM. Has not taken anything else. Using heat and some ice. documented in this encounter Miscellaneous Notes * Pt Handout (on AVS) - Vinayak Gonzales MD - 06/12/2023 3:22 PM EDT [id number] Pelvic Fracture You have a break or fracture of the pelvic bone. Your fracture is stable because the bones are not out of place and there are no signs of serious internal bleeding. No surgery or other special treatment will be needed. As long as your pain is controlled by oral medicine, you can be treated at home.A broken pelvis will take about 6 to 12 weeks to heal. It can be painful to move for the first 3 to4 weeks. Home care Bed rest and pain medicine is the only treatment required. You can stay mostly in bed for the first 2 to 3 days to reduce pain with movement. During this time, you will need help with bathing, using the bathroom, and meals. A bedpan or bedside commode may be easier to use than getting up to use the bathroom. As soon as possible, begin sitting or walking to avoid problems with prolonged bed rest (muscle weakness, worsening back stiffness and pain, blood clots in the legs). A walker, crutches,or cane will make walking easier in the first few weeks. Home healthcare may be available to provide in-home nursing services. Check with your healthcareprovider, the hospital?s social service department or a private nursing agency to see if your insurance will cover this kind of care. During the first 2 days after the injury there will probably be localized swelling and bruising on the skin over the pelvis. During this time apply an ice pack to the painful area for no more than20 minutes every 1 to 2 hours to reduce swelling and pain. To make an ice pack, put ice cubes in a plastic bag that seals at the top. Wrap the ice pack in a clean, thin towel or cloth. Never put ice or an ice pack directly on your skin. You may use icrz-swb-[id number] pain medicine to control pain, unless another medicine was prescribed. Take pain medicine as directed. Call your healthcare provider if your pain is not well-controlled. A dose change or stronger medicine may be needed. Talk with your healthcare provider before usingthese medicines if you have chronic liver or kidney disease, have had ulcers, or are taking blood thinners. Follow-up care Follow up with your healthcare provider, or as advised. This will help to make sure the bone is healing correctly. If X-rays were taken, you will be told of any new findings that may affect your care. Call 911 Call 911 if you have: Increasing swelling, pain or redness of a leg Chest pain or shortness of breath When to seek medical advice Call your healthcare provider right away if any of these occur: Pain becomes worse or you are unable to walk with help for more than 3 days Blood in your urine or bleeding from the urethra (the opening where urine comes out) Trouble passing urine or unable to pass stool due to pain Fever of 100.4F (38C) or higher, or as directed by your healthcare provider Destiny Last Reviewed Date: 07/21/202119999186-4797 [employer]. All rights reserved. This information is not intended as a substitute for professional medical care. Always follow your healthcare professional's instructions. documented in this encounter Plan of Treatment Upcoming Encounters Date Type Department Care Team (Late st Contact Info) Description 12/12/2023 1:30 PM EDT Office Visit Cardiology, [facility] [address] [place] [address] Fly Silveira, DO [address] [place] [address] Health Maintenance Due Date Last Done Comments [...] as of this encounter Visit Diagnoses Diagnosis Acute pain in female pelvis- Primary Unspecified symptom associated with female genital organs Closed fracture of inferior pubic ramus, unspecified laterality, with routine healing, subsequent encounter documented in this encounter Administered Medications Inactive Administered Medications - up to 3 most recent administrations Medication Order MAR Action Action Date Dose Rate Site morphine sulfate inj 1 mg 1 mg, Intramuscular, ONCE, On 06/12/23 at 1545, For 1 dose Given 06/12/2023 3:08 PM EDT 1 mg Deltoid Left Upper documented in this encounter Active and Recently Administered Medications Times are shown in EDT. Scheduled Medication Order 06/10/2023 06/11/2023 06/12/2023 morphine sulfate inj 1 mg (COMPLETED) 1 mg, Intramuscular, ONCE, On 06/12/23 at 1545, For 1 dose 1508 (Given - Provid er: Ross Barksdale RN) documented in this encounter Advance Directives Latest Code Status on File Code Status Date Activated Date Inactivated Comments Full Code 05/31/2023 1:21 AM 06/01/2023 5:50 PM This order reflects the patients wishes and were consensually agreed upon. Question Answer Comments Discussion of Advance Directives occurred with: Patient Care Teams Patient Registration Representative Relationship Specialty Start Date End Date Neema Pop DO [address] [place] [address] [place] [address] PCP - General 09/03/07 documented as of this encounter
--- OUTSIDE RECORDS SUMMARY | 2023-06-30 08:46 | External Medical Summary | Summary of Care ---
Author Name Unknown Organization [facility] Address [address] [place] [address] Phone [phone] Care Team Providers Care Soldering Machine Operator Name Role Phone Neema Pop DO Primary Care Provider Reason for Visit * Reason Comments Outpatient Testing Encounter Details Date Type Department Care Team (Late st Contact Info) Description 06/26/2023 11:30 AM EDT Laboratory Laboratory, [facility] [address] [place] [id number] [facility] [address] [place] [address] Hyponatremia Allergies Active Allergy Reactions Criticality Noted Date [...] as of this encounter (statuses as of 06/26/2023) Medications Medication Sig Dispensed Refills Start Date [...] as of this encounter (statuses as of 06/26/2023) Active Problems Problem Noted Date Diagnosed Date History of substance abuse 05/31/2023 Irritable bowel syndrome 05/31/2023 Ankle swelling 05/31/2023 Cigarette smoker 05/31/2023 Anisocoria 05/31/2023 Hypokalemia 05/31/2023 PTSD (post-traumatic stress disorder) 01/20/2022 Collagenous colitis 01/04/2022 Uncontrolled hypertension 09/15/2021 Anxiety 06/22/2020 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 documented as of this encounter (statuses as of 06/26/2023) Immunizations Name Administration Dates Next Due TDAP [...] 12/12/2023 1:30 PM EDT Office Visit Cardiology, [facility] [address] [place] [address] Fly Silveira DO [address] [place] [address] Pending Results Name Type Priority Associated Diagnoses Date /Time BASIC METABOLIC PANEL Lab Routine Hyponatremia 06/26/2023 11:20 AM EDT Health Maintenance Due Date Last Done [...] as of this encounter Visit Diagnoses Diagnosis Hyponatremia Hyposmolality and/or hyponatremia documented in this encounter Advance Directives Latest Code Status on File Code Status Date Activated Date Inactivated Comments Full Code 05/31/2023 1:21 AM 06/01/2023 5:50 PM This order reflects the patients wishes and were consensually agreed upon. Question Answer Comments Discussion of Advance Directives occurred with: Patient Care Teams Soldering Machine Operator Relationship Specialty Start Date End Date Neema Pop DO [address] [place] [address], [place] [address] PCP - General 09/03/07 documented as of this encounter
--- OUTSIDE RECORDS SUMMARY | 2023-06-30 08:46 | External Medical Summary | Summary of Care ---
Author Name Unknown Organization [facility] Address [address] [facility] [place] [address] Phone [phone] Care Team Providers Care Sales Office Manager Name Role Phone Neema Pop DO Primary Care Provider Encounter Details Date Type Department Care Team (Late st Contact Info) Description 06/20/2023 Orders Only PATIENT PORTAL DO NOT DELETE THIS DEPT USED BY [place] [id number] Allergies Active Allergy Reactions Criticality Noted Date [...] as of this encounter (statuses as of 06/20/2023) Medications Medication Sig Dispensed Refills Start Date [...] as of this encounter (statuses as of 06/20/2023) Active Problems Problem Noted Date Diagnosed Date History of substance abuse 05/31/2023 Irritable bowel syndrome 05/31/2023 Ankle swelling 05/31/2023 Cigarette smoker 05/31/2023 Anisocoria 05/31/2023 Hypokalemia 05/31/2023 PTSD (post-traumatic stress disorder) 01/20/2022 Collagenous colitis 01/04/2022 Uncontrolled hypertension 09/15/2021 Anxiety 06/22/2020 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 documented as of this encounter (statuses as of 06/20/2023) Immunizations Name Administration Dates Next Due TDAP [...] 12/12/2023 1:30 PM EDT Office Visit Cardiology, [facility] [address] [place] [address] Fly Silveira DO [address] [place] [address] Health Maintenance Due Date Last Done Comments DXA Scan 1940 Depression Screening 1952 Albumin/Creatinine Ratio 1958 Zoster Vaccines (2 of 3) 12/28/2011 11/02/2011 COVID-19 Vaccine (4 - 2022- season) 2022 12/14/2020, 06/05/2020, 05/15/2020 Influenza Vaccine [...] Advance Directives occurred with: Patient Care Teams Sales Office Manager Relationship Specialty Start Date End Date Neema Pop DO [address] [place], [place] [address] PCP - General 09/03/07 documented as of this encounter
--- OUTSIDE RECORDS SUMMARY | 2023-06-30 08:46 | External Medical Summary | Continuity of Care Document ---
Author Name Unknown Organization [address] Address [address] [place] [id number] Care Team Providers Care Occasional Caregiver Name Role Phone Neema Pop Primary Care Physician [phone] [id number] Date(s): 06/15/23 - 06/15/[address] [place] [address], [address] [place] [address] [phone] Encounter Diagnosis Hip fracture, right(Discharge Diagnosis) - 06/15/23 Hospital discharge follow-up(Discharge Diagnosis) - 06/15/23 Discharge Disposition: Home or Self Care Attending Physician: DO Pop Kristen M Referring Physician: DO Pop Kristen M Allergies, Adverse Reactions, Alerts Substance Reaction Severity Status ciprofloxacin Active doxycycline unknown Active magnesium sulfate stomach issues Active sulfa drugs Abdominal pain Active Macrobid Active Flagyl diarrhea Active Augmentin abdominal discomfort Active Bactrim 1 nausea sob unknown Active Adhesive bandage rash Active milk products Diarrhea Stomach pain Active 1diarrhea which sent patient to ER Assessment and Plan Extracted from: Title:Office Visit Note Author:DO Cabral Audrey Date:06/15/23 1.Hip fracture, right Acute w/ systemic symptoms or complicated injury Goal:Resolution Data:_Right hip fracture 06/08 seen at [facility] ortho said no intervention at this time, managing pain with tylenol-codeine.Ambulating with walker _ Plan: _Discussed with patient alternating tylenol 1000mg BID and ibuprofen 800mg BID for overall pain control, will refill tylenol-codiene for additional pain control, patient aware that her pain should continue with time. Patient aware she should continue with ambulation as tolerated and continued bedrest with atrophy her muscles. Defers PT at this time until pain improved. Patient requests ortho referral Larry Jordan for second opinion, consult sent. Discussed with patient given her hip fracture she likely has osteoporosis. Recommend walking as tolerating increasing intake of calcium and vitamin D. Patient states she will drink more milk. Recommend medication intervention Prolia injections to help reduce fracture risk given patient likely has another 5-10 years to enjoy. Patient plans to research further, will f/u in 6 weeks to reassess. 2.Hospital discharge follow-up Reviewed hospital imaging labs and medical decision making. Reviewed medication changes. Immunizations Given and Recorded Vaccine Date Status Refusal Reason influenza virus vaccine, inactivated 12/13/21 Give n pneumococcal 13-valent vaccine 1 11/24/16 Given tetanus/diphtheria/pertuss, acel (Tdap) 10/10/14 G iven zoster vaccine live 2 11/02/11 Recorded pneumococcal 23-valent vaccine 01/01/08 Recorded 1Early/Late Reason: Other : This was ordered prior to patient's visit today. 2Result Comment: [10/10/2014] per patient Medications acetaminophen-codeine 300 mg-30 mg oral tablet Start: 06/15/23 11:57:00 EDT, 1 tab, PO, tid, Disp# 30 tab, Refills: 0, PRN: as needed for pain, [facility]acy: [facility] Start Date: 06/15/23 Status: Ordered amLODIPine 5 mg oral tablet Start: 06/05/23 12:50:00 EDT, 1 tab, PO, Daily Start Date: 06/05/23 Status: Ordered dicyclomine 10 mg oral capsule Start: 06/13/23 8:03:00 EDT, 1 cap, PO, qid, Disp# 120 cap, Refills: 0, PRN: NEEDED for spasms, Pharmacy: [id number] Start Date: 06/13/23 Status: Ordered Entocort EC 3 mg oral delayed release capsule Start: 05/17/23 17:07:00 EDT, 2 cap, PO, qAM, Disp# 180 cap, Refills: 0, Pharmacy: [id number] Start Date: 05/17/23 Stop Date: 08/15/23 Status: Ordered Gemtesa 75 mg oral tablet Start: 09/19/22 14:15:00 EDT, 1 tab, PO, Daily Start Date: 09/19/22 Status: Ordered hydroCHLOROthiazide 12.5 mg oral capsule Start: 06/05/23 12:50:00 EDT, 1 cap, PO, Daily Start Date: 06/05/23 Status: Ordered KlonoPIN 0.5 mg oral tablet Start: 06/05/23 14:10:00 EDT, 1 tab, PO, bid, Disp# 60 tab, Refills: 3, as needed prn, Pharmacy: [id number] Start Date: 06/05/23 Status: Ordered Lialda 1.2 g oral delayed release tablet Start: 05/17/23 17:07:00 EDT, 2 tab, PO, qhs, Disp# 60 tab, Refills: 5, Take in the evening., Pharmacy: [id number] Start Date: 05/17/23 Stop Date: 11/13/23 Status: Ordered lidocaine topical 5% patch Start: 06/15/23 12:19:00 EDT, 1 patch, topical, Daily, Disp# 30 patch, Remove patch daily before applying new patch. Please place around right hip/groin crease for additional pain control., Pharmacy:[facility] Start Date: 06/15/23 Stop Date: 07/15/23 Status: Ordered lisinopril 20 mg oral tablet Start: 08/18/22 8:01:00 EDT, 1 tab, PO, Daily, Disp# 90 tab, Refills: 3, Pharmacy: [facility] Start Date: 08/18/22 Stop Date: 08/13/23 Status: Ordered Lomotil 2.5 mg-0.025 mg oral tablet Start: 05/09/23 14:20:00 EDT, 2 tab, PO, q6h, Disp# 240 tab, Refills: 5, PRN: as needed for loose stool, Pharmacy: [id number] Start Date: 05/09/23 Stop Date: 11/05/23 Status: Ordered Metamucil Start: 03/28/23 11:51:00 EST, 2 teaspoons po in am and qhs Start Date: 03/28/23 Status: Ordered metoprolol succinate 100 mg oral tablet, extended release Start: 04/07/22 12:49:00 EST, 1 tab, PO, Daily, Disp# 90 tab, Refills: 3, Pharmacy: [facility] Start Date: 04/07/22 Status: Ordered multivitamin Start: 10/13/22 12:53:00 EDT, 1 tab, PO, Daily Start Date: 10/13/22 Status: Ordered Mental Status 06/15/23 Barriers to Learning one year None evide nt Mandatory Health Literacy Documentation Yes Health Literacy Communication Barriers N ever Primary Language Romanian Problem List Condition Confirmation Course Effective Dates Status Health St atus Informant Anxiety Confirmed Active Carotid artery plaque Confirmed Active Chronic right SI joint pain Confirmed Active Collagenous colitis Confirmed Active Cool skin Confirmed Active Generalized OA Confirmed Active DJD of shoulder Confirmed Active Diarrhea Confirmed Active Dyslipidemia Confirmed Active Dysuria Confirmed Active Effusion, left shoulder Confirmed Active Abnormal ankle brachial index ([place]) Confirmed Active Hx of diarrhea Confirmed Active Left hip pain Confirmed Active History of tobacco use Confirmed Active Hypertension Confirmed Active Sacroiliitis Confirmed 04/15/21 Active INSOMNIA Confirmed Active Lower back pain Confirmed Active Lymphocytic colitis Confirmed Active Left knee DJD Confirmed Active Osteoporosis Confirmed Active Pain Confirmed Active Depression, major, recurrent, mild Confirmed Active Chronic left SI joint pain Confirmed Active Rotator cuff strain Confirmed Active Situational stress Confirmed Active Tobacco user Confirmed Active Diagnosis Diagnosis Type Effective Dates Health Status Cl inical Service Informant Hip fracture, right Discharge Diagnosis 06/15/23 Hospital discharge follow-up Discharge Diagnosis 06/15/23 Procedures Procedure Date Related Diagnosis Body Site Status Chest X-ray 1 03/21/22 Completed Pessary, device 2 08/24/21 Complet ed Fluoroscopy 3 03/31/21 Completed Colonoscopy 4 01/14/20 Completed EGD (esophagogastroduodenosc opy) gastric outlet reduction 01/14/20 [facility] ed Upper GI endoscopy 5 01/14/[address] of lungs (screening) 6 05/03/18 Completed Colonoscopy 06/01/15 Completed Lumbar spine 7 2003 Completed Hysterectomy 1993 Completed Duplex scan performed 8 C ompleted Knee replacement Complete d 1Impression; no acute process. 22 ring pessary for pelvic organ prolapse 3Guided cooled denrvation 4impression: - the entire examined colon is normal. Biopsied. - the distal rectum and anal verge are normal on retro flexion view 5impression: - normal esophagus - normal stomach - normal examined duodenum - no specimens collected 6A few scattered tiny pulmonary nodules measuring up to 3mm which are primarily located at the lung bases and demonstrate a tree-in-bud pattern. This favors mild infectious bronchiolitis and may be chronic. Otherwise, no suspicious pulmonary nodules. A 3cm hypodense right thyroid nodule. This is similar to the 2013 carotid doppler study. 7fusion 8carotid Vital Signs Most recent to oldest [Reference Range]: 1 Temperature [36.5-37.9 DegC] 36.7 DegC (06/15/23 11:15 AM) Blood Pressure 114/62mmHg (06/15/23 11:15 AM) Cuff Pulse Pressure 52 mmHg (06/15/23 11:15 AM) Social History Social History Type Response Tobacco Former smoker, Cigar ettes, Stopped age 73 Years. Smoking Status Former Smoker, quit in last 30 days Sex Female FCM Outpt Note * DO Pop Kristen M: MODIFY DO Pop Kristen M: MODIFY Event Display: FCM Outpt Note Authored Date: [id number] Chief Complaint Pt here for Hip fracture History of Present Illness 83yo Female here for hospital f/u [place] after fall. Walking with walker. No surgical intervention recommended at hospital hospital from 06/08 ED visit Wants oxycodone for pain control. Wants ortho referral. Did find the tylenol with codine, using it once totwice a day [facility] A/P: Acute fracture right inferior pubic ramus. 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 Physical Exam Vitals & Measurements T:36.7C BP:114/62 SpO2:98% PHQ2 Data(Data Documented on:06/15/2023 11:16) Emotional health assessment NEGATIVE General: Well appearing age appropriate calm cooperative Heart: RRR, +S1 S2, no murmurs/rubs/gallops Lungs: wheeze noted RLL Abd: soft, NT/ND, +BS Extremities: no swelling, no rash Musculoskeletal:noted pain on palpation right SI, no bruising noted. 5/5 strength in b/l LE Neuro: sensation intact in b/l LE Assessment/Plan 1.Hip fracture, right Acute w/ systemic symptoms or complicated injury Goal:Resolution Data:_Right hip fracture 06/08 seen at [facility] ortho said no intervention at this time, managing pain with tylenol-codeine.Ambulating with walker _ Plan: _Discussed with patient alternating tylenol 1000mg BID and ibuprofen 800mg BID for overall pain control, will refill tylenol-codiene for additional pain control, patient aware that her pain should continue with time. Patient aware she should continue with ambulation as tolerated and continuedbedrest with atrophy her muscles. Defers PT at this time until pain improved. Patient requests ortho referral Larry Jordan for second opinion, consult sent. Discussed with patient given her hip fracture she likely has osteoporosis. Recommend walking as tolerating increasing intake of calcium and vitamin D. Patient states she will drink more milk. Recommend medication intervention Prolia injections to help reduce fracture risk given patient likely has another 5-10 years to enjoy. Patient plans to research further, will f/u in 6 weeks to reassess. 2.Hospital discharge follow-up Reviewed hospital imaging labs and medical decision making. Reviewed medication changes. Attestation I saw the patient and confirmed the antony portions of the history and physical exam and agree with the impression and plan above. Will cover pain control until patient gets second opinion. Problem List/Past Medical History Ongoing Abnormal ankle brachial index ([place]Y) Anxiety Carotid artery plaque Chronic left SI joint pain Chronic right SI joint pain Collagenous colitis Cool skin Depression, major, recurrent, mild Diarrhea DJD of shoulder Dyslipidemia Dysuria Effusion, left shoulder Generalized OA History of tobacco use Hx of diarrhea Hypertension INSOMNIA Left hip pain Left knee DJD Lower back pain Lymphocytic colitis Osteoporosis Pain Rotator cuff strain Sacroiliitis Situational stress Tobacco user Historical Acute sinus infection Acute UTI Acute UTI Allergic cough Back pain Bronchitis COLITIS Corneal abrasion Fall Insect bite Leukopenia Medicare annual wellness visit, subsequent Medicare welcome exam [id number] adverse reaction to medication Sciatica Shoulder pain, left Tobacco abuse Tobacco user Urine frequency Vaginitis Weight loss Well adult exam Zoster vaccine Procedure/Surgical History Chest X-ray| Service Date: 3Pessary, device| Service Date: 08/24/2021Fluoroscopy|Service Date: 03/31/2021Upper GI endoscopy| Service Date: 01/14/2020Colonoscopy| Service Date: 01/14/2020EGD (esophagogastroduodenoscopy) gastric outlet reduction| Service Date: 01/14/2020CT of lungs (screening)| Service Date: 05/03/2018Colonoscopy| Service Date: 06/01/2015Lumbar spine| Service Date: 2003Hysterectomy| Service Date: 1993Knee replacementDuplex scan performed Medications acetaminophen-codeine(acetaminophen-codeine 300 mg-30 mg oral tablet), 1 tab, PO, tid, PRN amLODIPine(amLODIPine 5 mg oral tablet), 5 mg= 1 tab, PO, Daily atropine-diphenoxylate(Lomotil 2.5 mg-0.025 mg oral tablet), 2 tab, PO, q6h, PRN, 5 refills budesonide(Entocort EC 3 mg oral delayed release capsule), 6 mg= 2 cap, PO, qAM clonazePAM(KlonoPIN 0.5 mg oral tablet), 0.5 mg= 1 tab, PO, bid, 3 refills dicyclomine(dicyclomine 10 mg oral capsule), 1 cap, PO, qid, PRN hydroCHLOROthiazide(hydroCHLOROthiazide 12.5 mg oral capsule), 12.5 mg= 1 cap, PO, Daily lisinopril(lisinopril 20 mg oral tablet), 20 mg= 1 tab, PO, Daily, 3 refills mesalamine(Lialda 1.2 g oral delayed release tablet), 2.4 g= 2 tab, PO, qhs, 5 refills metoprolol(metoprolol succinate 100 mg oral tablet, extended release), 100 mg= 1 tab, PO, Daily, 3 refills multivitamin, 1 tab, PO, Daily psyllium(Metamucil) vibegron(Gemtesa 75 mg oral tablet), 75 mg= 1 tab, PO, Daily Allergies Adhesive bandagerash Augmentinabdominal discomfort Bactrimnausea, sob, unknown Flagyldiarrhea Macrobid ciprofloxacin doxycyclineunknown magnesium sulfatestomach issues milk productsDiarrhea, Stomach pain sulfa drugsAbdominal pain Social History Smoking Status Former Smoker, quit in last 30 days Alcohol - No Risk Use:Current Type:Liquor Frequency:1-2 times per week Average drinks per episode in last year:4 Exercise - Regular exercise Times per week:3-4 times/week - Comments: 15 min 3 times per week does back exercises that she was taught in PT. Home/Environment Lives with:Spouse - Comments: Single family home Tobacco - Medium Risk Use:Former smoker Type:Cigarettes Stopped at age:73Years Family History Cardiovascular disease: Father. Heart attack: Father. High Blood Pressure: Mother and PGF. Stroke: PGF. Type II diabetes mellitus: Unknown. Health Status Family Member(s) Family Member(s) Relationship: Mother, Age: Unknown Relationship: Father, Age: Unknown Immunizations Vaccine Date Status influenza virus vaccine, inactivated 12/13/2021 Given pneumococcal 13-valent vaccine 11/24/2016 Given Comments : Other : This was ordered prior to patient's visit today. tetanus/diphtheria/pertuss, acel (Tdap) 10/10/2014 Given zoster vaccine live 11/02/2011 Recorded Comments : [10/10/2014] per patient pneumococcal 23-valent vaccine 01/01/2008 Recorded Recommendations Health Maintenance Pending(in the next year) OverDue Adult Influenza Vaccine due08/19/22and every 1year Medicare Annual Wellness Visit due12/13/22and every 1year Due Adult COVID-19 Vaccination due06/15/23Unknown Frequency Adult Social Determinants of Health Screening due06/15/23Unknown Frequency Shingles Vaccine due06/15/23One-time only Due In Future Body Mass Index not due until06/05/24and every day Satisfied(in the past 1 year) Satisfied Body Mass Index on05/22/23.Satisfied by KYM Waldrop Erin Electronic Signature on File Electronically Reviewed/Signed by: Elysia Cabral DO Author Signature Dt/Tm:06/15/2023 12:18 PM Resident Department of Family Medicine Electronically Reviewed/Signed by: Neema Pop DO Cosigner Signature Dt/Tm: 06/15/2023 01:53 PM Department of Family Medicine AD Patient Care team information Care Team Personnel Name: GINNY Kellogg Tara Position: Nurse Pract - Family Med Member Role: Lifetime Relationship Address: Address: [address] [place] [id number] [place] Name: DO Ruiz Franklin J Position: Physician - Family Med Member Role: Lifetime Relationship Address: Address: [address] [address] [place] Name: DO Pop Kristen M Position: Physician - Family Med Member Role: Primary Care Provider Address: Address: [address] [place] [address], [place] [address] [place] Care Team Related Persons Name: ANMOLEDIN Address: home [address] [facility], [phone]"
--- OUTSIDE RECORDS SUMMARY | 2023-06-30 08:46 | External Medical Summary ---
Author Name Unknown Address Unknown Organization [facility] [address] [place] [id number] Laboratory Report Ordering Provider Test Date Status JAZ TALAMANTES 06/15/2023 12:55:36 Final Observation Date Value Abnormality Reference (Units ) Status BUN 06/15/2023 12:55:36 35 Above high normal 6-20 (mg/dL) Final Creatinine 06/15/2023 12:55:36 0.9 0.5-1.0 (mg/dL) Final Glomerular filtration rate/1.73 sq M.predicted [Volume Rate/Area] in Serum, Plasma or Blood by Creatinine-based formula (CKD-EPI) 06/15/2023 12:55:36 64 >=60 (mL/min) Final eGFR is calculated based on the CKD-EPI 2020 equation Sodium 06/15/2023 12:55:36 134 Below low normal 135 -146 (mmol/L) Final Potassium 06/15/2023 12:55:36 4.8 3.5-5.1 (m mol/L) Final Cl 06/15/2023 12:55:36 96 Below low normal 98- 107 (mmol/L) Final CO2 06/15/2023 12:55:36 27 22-32 (mmo l/L) Final Anion gap 06/15/2023 12:55:36 11 7-15 (mmol /L) Final Glucose 06/15/2023 12:55:36 93 70-120 (mg /dL) Final Calcium 06/15/2023 12:55:36 9.7 8.4-10.2 ( mg/dL) Final Performing Location [facility] [place] [id number]
--- OUTSIDE RECORDS SUMMARY | 2023-06-30 08:46 | External Medical Summary ---
Author Name Unknown Address Unknown Organization [facility] [address] [place] [id number] Laboratory Report Ordering Provider Test Date Status RASHAAD CHAPMAN 06/26/2023 11:20:13 Final Observation Date Value Abnormality Reference (Units ) Status BUN 06/26/2023 11:20:13 26 Above high normal 6-20 (mg/dL) Final Creatinine 06/26/2023 11:20:13 0.8 0.5-1.0 (mg/dL) Final Glomerular filtration rate/1.73 sq M.predicted [Volume Rate/Area] in Serum, Plasma or Blood by Creatinine-based formula (CKD-EPI) 06/26/2023 11:20:13 69 >=60 (mL/min) Final eGFR is calculated based on the CKD-EPI 2020 equation Sodium 06/26/2023 11:20:13 123 Below low normal 135 -146 (mmol/L) Final Results rechecked. Potassium 06/26/2023 11:20:13 5.4 Above high normal 3. 5-5.1 (mmol/L) Final Cl 06/26/2023 11:20:13 88 Below low normal 98- 107 (mmol/L) Final CO2 06/26/2023 11:20:13 20 Below low normal 22- 32 (mmol/L) Final Anion gap 06/26/2023 11:20:13 15 7-15 (mmol /L) Final Glucose 06/26/2023 11:20:13 107 70-120 (mg /dL) Final Calcium 06/26/2023 11:20:13 10.2 8.4-10.2 ( mg/dL) Final Performing Location [facility] [address] [place] [id number]
--- OUTSIDE RECORDS SUMMARY | 2023-06-30 08:47 | External Medical Summary | Summary of Care ---
Author Name Unknown Organization [facility] Address [address] [facility] [place] [address] Phone [phone] Care Team Providers Care [employer] Equipment Operator Name Role Phone Neema Pop Primary Care Provider Reason for Visit * Reason Onset Date Comments Advice 06/06/2023 Questions on tod ay's appt 06/06/23 Encounter Details Date Type Department Care Team (Late st Contact Info) Description 06/06/2023 Telephone Cardiology, [facility] [address] [place] [address] Fly Silveira, [address] [place] [address] Advice (Questions on today's appt 06/06/23) Allergies Active Allergy Reactions Criticality Noted Date [...] as of this encounter (statuses as of 06/07/2023) Medications Medication Sig Dispensed Refills Start Date [...] the morning. 90 Capsule 3 06/06/2023 Active Potassium Chloride Anny ER 20 MEQ Oral Tablet Extended Release Take 1 Tablet by mouth in the morning and 1 Tablet before bedtime. Do all this for 7 days. 14 Tablet 0 05/30/2023 06/07/2023 Discontinued (Patient preference/d iscontinuati on) documented as of this encounter (statuses as of 06/07/2023) Active Problems Problem Noted Date Diagnosed Date History of substance abuse 05/31/2023 Irritable bowel syndrome 05/31/2023 Ankle swelling 05/31/2023 Cigarette smoker 05/31/2023 Anisocoria 05/31/2023 Hypokalemia 05/31/2023 PTSD (post-traumatic stress disorder) 01/20/2022 Collagenous colitis 01/04/2022 Uncontrolled hypertension 09/15/2021 Anxiety 06/22/2020 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 documented as of this encounter (statuses as of 06/07/2023) Immunizations Name Administration Dates Next Due TDAP [...] encounter Miscellaneous Notes * Telephone Encounter - Fly Silveira DO - 06/07/2023 5:26 PM EDT I called patient and addressed to concerns. She states her swelling in her legs has resolved. I think the blood pressure that she obtained this morning at home with systolic blood pressure of 110 is perfect for her. With having been noted to have a recent systolic blood pressure in excess of 200 millimeters Hg while in the emergency department. A chemistry panel was performed yesterday in follow-up of her recent low- potassium and need for potassium supplementation. Her potassium is high at 6.4 millimole per liter. She notes that her diarrhea that she was since he was that her chronic colitis has been a little worse recently. I have counseled her to discontinue potassium chloride extended release 20 milligrams twice daily. She was to have a repeat chemistry panel performed next week. I do not think we need to have a repeat chemistry panel performed more acutely as we have an explanation for why her potassium is high. With regards to her recent diarrhea, I recommended that she can stop potassium supplement first andsee if this makes a difference. Otherwise continue her previous routine. Questions answered to her satisfaction. Fly Silveira DO * Telephone Encounter - Joni Dasilva OSA - 06/07/2023 10:56 AM EDT Person calling: Taylor Tate Relationship to patient: self Number to return call: [phone] Reason for call: Patient calling in regard to the previous message. Patient is asking if Dr. Silveira came to a conclusion about her LE swelling and also if there is any concern for her BP which was 110/48? Patient also advised that she did have the lab work (BMP) completed yesterday that Dr. Silveira was requesting. If you can please review and give patient a call back at [phone] to discuss. Provider Name:Dr. Fly Silveira Thank You, Joni Ext [id number] * Telephone Encounter - Nelly Tabares OSA - 06/06/2023 4:10 PM EDT Person calling: Taylor Relationship to patient: Self Number to return call: [phone] Reason for call: Was just seen today & can not remember if arrived at a conclusion of why her ankles were swelling that led to the hsp issue? 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 Hypokalemia Pt did not fully understand & would like these explained one more time thank you Pharmacy: N/A Provider Name:Jordana documented in this encounter Plan of Treatment Upcoming Encounters Date Type Department Care Team (Late st Contact Info) Description 12/12/2023 1:30 PM EDT Office Visit Cardiology, [facility] [address] [place] [address] Fly Silveira DO [address] [place] [address] Scheduled Orders Name Type Priority Associated Diagnoses Orde r Schedule BASIC METABOLIC PANEL Lab Routine HTN, goal below 140/90 Expected: 06/12/2023, Expires: 06/06/2024 Health Maintenance Due Date Last Done Comments [...] encounter Visit Diagnoses Diagnosis HTN, goal below 140/90- Primary Unspecified essential hypertension documented in this encounter Advance Directives Latest Code Status on File Code Status Date Activated Date Inactivated Comments Full Code 05/31/2023 1:21 AM 06/01/2023 5:50 PM This order reflects the patients wishes and were consensually agreed upon. Question Answer Comments Discussion of Advance Directives occurred with: Patient Care Teams Caltrans Equipment Operator Relationship Specialty Start Date End Date Neema Pop DO 6 Henrique Amanda [address] [place] [address], [place] [address] PCP - General 09/03/07 documented as of this encounter
--- OUTSIDE RECORDS SUMMARY | 2023-06-30 08:47 | External Medical Summary | Summary of Care ---
Author Name Unknown Organization [facility] Address [address] [place] [address] Phone [phone] Care Team Providers Care Clay Miller Name Role Phone Neema Pop Primary Care Provider Reason for Visit * Reason Comments Fall * Auth/Cert Specialty Diagnoses / Procedures Referred By Michelle t Referred To Contact COUNTS INCLUDE [facility] BEDS AT [facility] [address] [place] [address] Phone: [phone] Emergency Medicine [facility] [address] [place] [address] Referral ID Status Reason Start Date Expiration Date Visits Re quested Visits Authorized [id number] Encounter Details Date Type Department Care Team (Late st Contact Info) Description 06/09/2023 5:11 PM EDT - 06/09/2023 7:06 PM EDT Emergency [facility] ([facility] [address] [facility] [place] [address] Monica Millan MD [address] [facility] [place] [id number] Fall from standing, initial encounter (Primary Dx); Closed fracture of right inferior pubic ramus, initial encounter (HCC); Acute pain of right shoulder Discharge Disposition: Home - Self Care Allergies [...] as of this encounter (statuses as of 06/10/2023) Medications Medication Sig Dispensed Refills Start Date End Date Status Multivitamin Adult Oral Tablet Take by mouth. 0 Active Diphenoxylate-Atrop ine 2.5-0.025 MG Oral Tablet (Lomotil) Take 1 [...] the morning. 90 Capsule 3 06/06/2023 Active oxyCODONE HCl 5 MG Oral Tablet (Oxy IR) Take 1 Tablet by mouth every 6 hours as needed for Pain, Moderate for up to 4 days. 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 documented as of this encounter (statuses as of 06/10/2023) Immunizations Name Administration Dates Next Due TDAP [...] Sign Reading Time Taken Comments Blood Pressure 153/71 06/09/2023 6:34 PM EDT Pulse 68 06/09/2023 6:34 PM EDT Temperature 36.7 C (98.1 F) 06/09/2023 6:50 PM ED T Respiratory Rate 16 06/09/2023 6:34 PM EDT Oxygen Saturation 100% 06/09/2023 3:59 PM EDT Inhaled Oxygen Concentration - - Weight 49.9 kg (110 lb) 06/09/2023 3:59 PM EDT Height - - Body Mass Index 18.88 05/31/2023 2:40 AM EDT documented in this encounter Functional Status [...] this encounter Discharge Instructions * Discharge Instructions* Monica Millan MD - 06/09/2023 6:36 PM EDT Your x-ray of her shoulder was negative for any acute fracture. Your CT imaging of your pelvis showed that you have a right inferior pubic ramus fracture. Treatment of this is medically with pain management. Recommend alternating Tylenol and ibuprofen every 4-6 hours. You can take the prescribed oxycodone for any significant breakthrough pain. Recommend putting extra pillows down on any seems that you sit onto supply extra comfort. You can also sit on a heating pad and alternate with icing yourright hip to help with any muscle spasms. Recommend close follow up with your doctor. You should return to the emergency department if you develop significant worsening pain, inability to ambulate, li ghtheadedness or dizziness, or any new or worsening symptoms. documented in this encounter ED Notes * Monica Millan MD - 06/09/2023 6:33 PM EDT HISTORY OF PRESENT ILLNESS: Patient is a 83-year-old female presenting with right shoulder pain and right lateral hip and buttock pain. Patient reports she was at a doctor's office appointment today when she was facing towards the right and turn to go to the left and tripped over a rug on her shoe. Reports that she fell, landing on her right buttock and striking her right shoulder. Denies striking her head or loss of consciousness. She is not on any anticoagulation. She was currently complaining of some pain in the right shoulder and right buttock region. Denies any numbness or tingling down her extremities. ROS: as above The patient's allergies, past history, and medications were reviewed. PHYSICAL EXAM: ED Vitals: 06/09/23 1559 06/09/23 1734 06/09/23 1834 06/09/23 1850 BP: 130/98 132/50 153/71 Pulse: 65 65 68 Resp: 18 16 Temp: 36.5 C (97.7 F) 36.7 C (98.1 F) SpO2: 100% Weight: 49.9 kg (110 lb) Constitutional: Patient appears in no acute distress. HENT: Head: Normocephalic and atraumatic. Eyes: EOMI, PERRL Mouth/Throat: Mucous membranes moist. Neck: Trachea midline. Neck supple. Cardiovascular: RRR, No murmurs, rubs or gallops. Intact distal pulses. Pulmonary/Chest: No respiratory distress. Breath sounds clear and equal bilaterally. No wheezes or rales. No chest wall tenderness to palpation. Abdominal: Abdomen soft, no tenderness, rebound or guarding. Back: No midline spinal tenderness, no paraspinal tenderness, no CVA tenderness. Patient was able to straight leg raise bilaterally. Small area of ecchymosis to the right lateral pelvis. Musculoskeletal: No edema, tenderness or deformity noted. Skin: Warm and dry. No rash, erythema, pallor or cyanosis Psychiatric: Appropriate mood and affect for situation. Neurological: Alert and keenly responsive. CN II-XII grossly intact, moving all extremities equallyand fully. PROCEDURES AND TREATMENTS ED Orders | ED Results MDM: - Vitals signs stable - History obtained via patient. History as above. - Chronic conditions affecting care: IBS; anxiety - Differential diagnoses include, but are not limited to: shoulder fracture; shoulder dislocation; pelvic fracture; femur fracture - External medical records reviewed. - Xray right shoulder negative for fracture, per my interpretation - Xray hip showed "findings suggest possible fracture right inferior pubic ramus," per radiology - CT pelvis wo contrast showed " Acute fracture right inferior pubic ramus" per radiology - Discussed results with patient. She is ambulatory in the emergency department without any significant gait instability. Discussed that this fracture is not typically surgical in his just medically managed. Recommended close follow up with her primary care provider. She was given a dose of oxycodone 5 mg in the emergency department. Recommended alternating Tylenol and ibuprofen for pain management and utilizing the prescribed tabs of oxycodone that were sent to the patient's pharmacy. She wasgiven 15 tabs of oxycodone 5 mg. Instructed on return precautions. - Patient remained stable throughout the visit. Results were discussed with the patient and patient's family. They were given the opportunity to ask questions. Had lengthy discussion with patient about supportive care return precautions. No new prescriptions. No changes to medications. Patient to follow up with primary care physician for further evaluation and management. All questions answered. P atient agreeable plan. ASSESSMENT AND PLAN: Diagnosis: ICD-10-CM 1. Fall from standing, initial encounter W19.XXXA 2. Closed fracture of right inferior pubic ramus, initial encounter ([facility]) S32.591A 3. Acute pain of right shoulder M25.511 Disposition: discharge Monica Millan MD * Alma Arboleda RN - 06/09/2023 4:01 PM EDT Pt arrives to ED after a fall at the doctor's office. Reports she tripped over the rug and fell onto R side/butt, but tried to catcher herself on door. Reports R shoulder and R hip pain with standing. No blood thinner use, hit head, LOC. * Rosa Maria Fry PA-C - 06/09/2023 3:58 PM EDT ED TRIAGE NOTE HISTORY OF PRESENT ILLNESS Taylor Tate is a 83 year old female who presents to the ED with Fall. Informant: patient Fellat Doctors office Sneaker stuck on rubber carpet. Hit right shoulder and right hip/pelvic Able to weight bear. No blood thinners. No head injury PHYSICAL EXAM Initial Vitals (see all): BP 130/98 | Pulse 65 | Resp 18 | Temp 97.7 | O2 100 %Weight 49.9 kg | Height 162.6 cm | BMI 18.88 kg/m2 Initial Pain Assessment (see all): 5 (moderate pain)/10, location: R shoulder, R hip ([facility] Adult Scale 0-10) LUNGS: chest symmetric with normal AP diameter, no chest deformities noted, no chest wall tenderness, lungs clear to auscultation. HEART: regular rate , no murmurs, no gallops, and PMI non-displaced. ABDOMEN: abdomen soft, non-tender, no masses, no hepatosplenomegaly, no rebound or guarding. Right shoulder with good ROM. No deformity Right hip: able to weight bear. No deformity Tender pelvis MEDICAL DECISION MAKING Are the vital signs unstable? No Degree of pain: moderate Is the patient's mental status altered? No Does the patient appear acutely ill or toxic? No Is there evidence for poor perfusion? No Is the patient and near term? No Was pain medication given? N/A I evaluated the patient in triage in order to provide a brief medical screening exam and initiationof appropriate diagnostic testing. Instructions were given to notify nursing staff if symptoms should worsen or if any other concerns arise while waiting for further evaluation. Rosa Maria Fry PA-C documented in this encounter Miscellaneous Notes * Pt Handout (on AVS) - Monica Millan MD - 06/09/2023 6:35 PM EDT [id number] Pelvic Fracture You have a break or [...] directly on your skin. You may use [id number] pain medicine to control pain, unless another [...] your healthcare provider Destiny Last Reviewed Date: 07/21/202119999500-9716 [employer]. All rights reserved. This information is not intended as a substitute for professional medical care. Always follow your healthcare professional's instructions. documented in this encounter Plan of Treatment Upcoming Encounters Date Type Department Care Team (Late st Contact Info) Description 06/12/2023 11:00 AM EDT Laboratory Laboratory, [facility] [address] [place] [id number] [facility] [address] [place] [address] 12/12/2023 1:30 PM EDT Office Visit Cardiology, [facility] [address] [place] [address] Fly Silveira, [address] [facility] [place] [address] Health Maintenance Due Date Last Done Comments [...] Not on filedocumented as of this encounter Procedures Procedure Name Priority Date/Time Associated Diagnosis Comments CT PELVIS WO CONTRAST STAT 06/09/2023 5:23 PM EDT XR HIP UNILAT 2-3 VIEWS INCLUDING AP PELVIS STAT 06/09/2023 4:28 PM EDT XR SHOULDER, 2 OR MORE VIEWS STAT 06/09/2023 4:28 PM EDT documented in this encounter Results * CT PELVIS WO CONTRAST (06/09/2023 5:23 PM EDT) Anatomical Region Laterality Modality Pelvis, Body Computed Tomogra phy 06/09/2023 5:12 PM EDT Impressions 06/09/2023 5:39 PM EDT IMPRESSION: 1. Acute fracture right inferior pubic ramus. No other definite fracture visualized. 2. Pelvic floor relaxation/cystocele THIS DOCUMENT HAS BEEN ELECTRONICALLY SIGNED BY ROSETTA GRAF MD Narrative 06/09/2023 5:39 PM EDT PROCEDURE INFORMATION: Exam: CT Pelvis Without Contrast; Skeletal Exam date and time: 06/09/2023 5:12 PM Age: 83 years old Clinical indication: Hip pain; Right hip; Additional info: ? Fracture seen on XR TECHNIQUE: Imaging protocol: Computed tomography of the pelvis without contrast. Exam focused on the skeleton. Total images: 708 Radiation optimization: All CT scans at this facility use at least one of these dose optimization techniques: automated exposure control; mA and/or kV adjustment per patient size (includes targeted exams where dose is matched to clinical indication); or iterative reconstruction. COMPARISON: CT ABDOMEN PELVIS WO(Adult) 06/08/2020 3:26 PM FINDINGS: Bones/joints: Fusion hardware lumbar spine. Diffuse osteopenia limits evaluation for fracture. There is an acute minimally displaced slightly comminuted fracture right inferior pubic ramus. Soft tissues: Low-lying bladder suggests pelvic floor relaxation. Procedure Note Rosetta Graf MD - 06/09/2023 PROCEDURE INFORMATION: Exam: CT Pelvis Without Contrast; Skeletal Exam date and time: 06/09/2023 5:12 PM Age: 83 years old Clinical indication: Hip pain; Right hip; Additional info: ? Fracture seenon XR TECHNIQUE: Imaging protocol: Computed tomography of the pelvis without contrast. Exam focused on the skeleton. Total images: 708 Radiation optimization: All CT scans at this facility use at least one ofthese dose optimization techniques: automated exposure control; mA and/or kV adjustment per patient size (includes targeted exams where dose is matchedto clinical indication); or iterative reconstruction. COMPARISON: CT ABDOMEN PELVIS WO(Adult) 06/08/2020 3:26 PM FINDINGS: Bones/joints: Fusion hardware lumbar spine. Diffuse osteopenia limits evaluation for fracture. There is an acute minimally displaced slightly comminuted fracture right inferior pubic ramus. Soft tissues: Low-lying bladder suggests pelvic floor relaxation. IMPRESSION IMPRESSION: 1. Acute fracture right inferior pubic ramus. No other definite fracture visualized. 2. Pelvic floor relaxation/cystocele THIS DOCUMENT HAS BEEN ELECTRONICALLY SIGNED BY ROSETTA GRAF MD Rosa Maria Fry PA-C RAD CT * XR HIP UNILAT 2-3 VIEWS INCLUDING AP PELVIS (06/09/2023 4:28 PM EDT) Anatomical Region Laterality Modality Lower Extremity, Hip, Pelvis Dig ital Radiography 06/09/2023 4:07 PM EDT Impressions 06/09/2023 4:45 PM EDT IMPRESSION: Findings suggest possible fracture right inferior pubic ramus as above. Suggest CT imaging of the pelvis/right hip. THIS DOCUMENT HAS BEEN ELECTRONICALLY SIGNED BY ROSETTA GRAF MD Narrative 06/09/2023 4:45 PM EDT PROCEDURE INFORMATION: Exam: XR Right Hip Exam date and time: 06/09/2023 4:07 PM Age: 83 years old Clinical indication: Other: Mild right shoulder pain. Right hip pain after fall. Can bear weight but having pain when moving. ; Additional info: Pain in pelvis after fall TECHNIQUE: Imaging protocol: Radiologic exam of the right hip. Views: 2 or 3 views hip with pelvis when performed. Total images: 3 COMPARISON: CT ABDOMEN PELVIS WO(Adult) 06/08/2020 3:26 PM FINDINGS: Bones/joints: Orthopedic hardware lumbar spine. 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 Suggestion of fracture inferior pubic ramus although overlying soft tissues limit evaluation. No other definite fracture. Soft tissues: See "Bones/joints" finding. Procedure Note Rosetta Graf MD - 06/09/2023 PROCEDURE INFORMATION: Exam: XR Right Hip Exam date and time: 06/09/2023 4:07 PM Age: 83 years old Clinical indication: Other: Mild right shoulder pain. Right hip pain after fall. Can bear weight but having pain when moving. ; Additional info: Painin pelvis after fall TECHNIQUE: Imaging protocol: Radiologic exam of the right hip. Views: 2 or 3 views hip with pelvis when performed. Total images: 3 COMPARISON: CT ABDOMEN PELVIS WO(Adult) 06/08/2020 3:26 PM FINDINGS: Bones/joints: Orthopedic hardware lumbar spine. Minimal osteoarthritisright hip with subchondral sclerosis and minimal spurring. Suggestion offracture inferior pubic ramus although overlying soft tissues limit evaluation. Noother definite fracture. Soft tissues: See "Bones/joints" finding. IMPRESSION IMPRESSION: Findings suggest possible fracture right inferior pubic ramus as above.Suggest CT imaging of the pelvis/right hip. THIS DOCUMENT HAS BEEN ELECTRONICALLY SIGNED BY ROSETTA GRAF MD Rosa Maria Fry PA-C RADIOLOGY ([facility]) * XR SHOULDER, 2 OR MORE VIEWS (06/09/2023 4:28 PM EDT) Anatomical Region Laterality Modality Upper Extremity, Shoulder Digita l Radiography 06/09/2023 4:07 PM EDT Impressions 06/09/2023 4:49 PM EDT IMPRESSION: No acute fracture THIS DOCUMENT HAS BEEN ELECTRONICALLY SIGNED BY ROSETTA GRAF MD Narrative 06/09/2023 4:49 PM EDT PROCEDURE INFORMATION: Exam: XR Right Shoulder Exam date and time: 06/09/2023 4:07 PM Age: 83 years old Clinical indication: Other: Mild right shoulder pain. Right hip pain after fall. Can bear weight but having pain when moving. TECHNIQUE: Imaging protocol: Radiologic exam of the right shoulder. Views: 2 or more views. Total images: 3 COMPARISON: DX XR CHEST 2 VIEWS 05/30/2023 7:53 PM FINDINGS: Bones/joints: Degenerative changes glenohumeral joint. No fracture. Soft tissues: Normal. Procedure Note Rosetta Graf MD - 06/09/2023 PROCEDURE INFORMATION: Exam: XR Right Shoulder Exam date and time: 06/09/2023 4:07 PM Age: 83 years old Clinical indication: Other: Mild right shoulder pain. Right hip pain after fall. Can bear weight but having pain when moving. TECHNIQUE: Imaging protocol: Radiologic exam of the right shoulder. Views: 2 or more views. Total images: 3 COMPARISON: DX XR CHEST 2 VIEWS 05/30/2023 7:53 PM FINDINGS: Bones/joints: Degenerative changes glenohumeral joint. No fracture. Soft tissues: Normal. IMPRESSION IMPRESSION: No acute fracture THIS DOCUMENT HAS BEEN ELECTRONICALLY SIGNED BY ROSETTA GRAF MD Rosa Maria Fry PA-C RADIOLOGY ([facility]) documented in this encounter Visit Diagnoses Diagnosis Fall from standing, initial encounter- Primary Closed fracture of right inferior pubic ramus, initial encounter ([facility]) Acute pain of right shoulder documented in this encounter Administered Medications Inactive Administered Medications - up to 3 most recent administrations Medication Order MAR Action Action Date Dose Rate Site oxyCODONE (Oxy IR) tab 5 mg 5 mg, Oral, ONCE, On Mon06/09/23 at 1915, For 1 dose Given 06/09/2023 6:44 PM EDT 5 mg documented in this encounter Active and Recently Administered Medications Times are shown in EDT. Scheduled Medication Order 06/07/2023 06/08/2023 06/09/2023 oxyCODONE (Oxy IR) tab 5 mg (COMPLETED) 5 mg, Oral, ONCE, On Mon06/09/23 at 1915, For 1 dose 1844 (Given - Provid er: Ross Barksdale RN) documented in this encounter Advance Directives Latest Code Status on File Code Status Date Activated Date Inactivated Comments Full Code 05/31/2023 1:21 AM 06/01/2023 5:50 PM This order reflects the patients wishes and were consensually agreed upon. Question Answer Comments Discussion of Advance Directives occurred with: Patient Care Teams Clay Miller Relationship Specialty Start Date End Date Neema Pop DO [address] [place] [address], [place] [address] PCP - General 09/03/07 documented as of this encounter
--- OUTSIDE RECORDS SUMMARY | 2023-06-30 08:47 | External Medical Summary | Summary of Care ---
Author Name Unknown Organization [facility] Address [address] [place] [address] Phone [phone] Care Team Providers Care Wharf Builder Name Role Phone Neema Pop DO Primary Care Provider Reason for Visit * Reason Onset Date Comments Medication Problem 06/12/2023 Encounter Details Date Type Department Care Team (Late st Contact Info) Description 06/12/2023 Telephone [facility] Emergency Department ([facility]) [address] [place] [address] Vinayak Gonzales MD [address] [place] [address] Medication Problem Allergies Active Allergy Reactions Criticality Noted Date [...] as of this encounter (statuses as of 06/12/2023) Medications Medication Sig Dispensed Refills Start Date [...] too strong 20 Tablet 0 06/12/2023 Active documented as of this encounter (statuses as of 06/12/2023) Active Problems Problem Noted Date Diagnosed Date History of substance abuse 05/31/2023 Irritable bowel syndrome 05/31/2023 Ankle swelling 05/31/2023 Cigarette smoker 05/31/2023 Anisocoria 05/31/2023 Hypokalemia 05/31/2023 PTSD (post-traumatic stress disorder) 01/20/2022 Collagenous colitis 01/04/2022 Uncontrolled hypertension 09/15/2021 Anxiety 06/22/2020 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 After discussion, patient understands that there is a [facility] pharmacy somewhere in his region that will have this medication and she will have the pharmacist at her [facility] pharmacy [facility] and would be able to fill it. Patient says she is going to contact the pharmacy and ask for guidance about which [facility] pharmacy would stock the medication she has been prescribed. Vinayak Gonzales Jr., MD documented in this encounter Plan of Treatment Upcoming Encounters Date Type Department Care Team (Late st Contact Info) Description 12/12/2023 1:30 PM EDT Office Visit Cardiology, [facility] [address] [place] [address] [address] Sil[address]ira, [address] [place] [address] Health Maintenance Due Date Last Done Comments [...] Advance Directives occurred with: Patient Care Teams Wharf Builder Relationship Specialty Start Date End Date Neema Pop DO 6 [facility] [address] [place] [address] PCP - General 09/03/07 documented as of this encounter
--- OUTSIDE RECORDS SUMMARY | 2023-06-30 08:47 | External Medical Summary | Summary of Care ---
Author Name Unknown Organization [facility] Address [address] [facility] [place] [address] Phone [phone] Care Team Providers Care Change Of Address Clerk Name Role Phone Neema Pop Primary Care Provider Reason for Visit * Reason Onset Date Comments Advice 06/06/2023 Questions on tod ay's appt 06/06/23 Encounter Details Date Type Department Care Team (Late st Contact Info) Description 06/06/2023 Telephone [address]iology, [facility] [address] [place] [address] Fly Silveira, [address] [place] [address] Advice (Questions on today's appt 06/06/23) Allergies [...] as of this encounter (statuses as of 06/08/2023) Medications Medication Sig Dispensed Refills Start Date [...] as of this encounter (statuses as of 06/08/2023) Active Problems Problem Noted Date Diagnosed Date History of substance abuse 05/31/2023 Irritable bowel syndrome 05/31/2023 Ankle swelling 05/31/2023 Cigarette smoker 05/31/2023 Anisocoria 05/31/2023 Hypokalemia 05/31/2023 PTSD (post-traumatic stress disorder) 01/20/2022 Collagenous colitis 01/04/2022 Uncontrolled hypertension 09/15/2021 Anxiety 06/22/2020 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 Provider Name:Dr. Fly Silveira Thank You, Joni Ext [phone] * Telephone Encounter - Nelly Tabares OSA - 06/06/2023 4:10 PM EDT Person calling: Taylor Relationship to patient: Self Number to return call: [phone] Reason for call: Was just seen today [...] Description 06/12/2023 11:00 AM EDT Laboratory Laboratory, [facility] [address] [place] [phone] Elena Santillan [address] [place] [address] 12/12/2023 1:30 PM EDT Office Visit Cardiology, [facility] [address] [place] [address] Fly Silveira DO [address] [place] [address] Scheduled Orders Name Type Priority Associated Diagnoses [...] Advance Directives occurred with: Patient Care Teams Change Of Address Clerk Relationship Specialty Start Date End Date Neema Pop DO [address] [place] [address] Francesco Amanda [address] [place] [address], [place] [address] PCP - General 09/03/07 documented as of this encounter
--- OUTSIDE RECORDS SUMMARY | 2023-06-30 08:47 | External Medical Summary | Summary of Care ---
Author Name Unknown Organization [facility] Address [address] [place] [address] Phone [phone] Care Team Providers Care Coordinator Skill Training Program Name Role Phone Neema Pop DO Primary Care Provider Reason for Visit * Reason Onset Date Comments Medication Problem 06/12/2023 Encounter Details Date Type Department Care Team (Late st Contact Info) Description 06/12/2023 Telephone [facility] Emergency Department ([facility]) [address] [place] [address] Vinayak Gonzales MD [address] [place] [address] Medication Problem Allergies Active Allergy [...] Encounter - Vinayak Gonzales MD - 06/12/2023 6:07 PM EDT Patient called in saying she found another pharmacy that will be open long enough for her to get to. [facility] pharmacy in [place]. Unfortunately the prescription apparently cannot migrate easily between [facility] pharmacies so I am going to send a small number of tablets to [place] and she needs to work out further pain control with her primary care. Vinayak Gonzales Jr., MD documented in this encounter Plan of Treatment Upcoming Encounters Date Type Department Care Team (Late st Contact Info) Description 12/12/2023 1:30 PM EDT Office Visit Cardiology, [facility] [address] [place] [address] Fly Silveira, [address] [place] [address] Health Maintenance Due Date Last Done Comments [...] Advance Directives occurred with: Patient Care Teams Coordinator Skill Training Program Relationship Specialty Start Date End Date Neema Pop DO [address] [facility] [address] Amanda [address] [place] [address], [place] [address] PCP - General 09/03/07 documented as of this encounter
--- OUTSIDE RECORDS SUMMARY | 2023-06-30 08:47 | External Medical Summary | Continuity of Care Document ---
Author Name Unknown Organization [place] [address] [facility] Address [address] [place] [phone] Care Team Providers Care Ambulance Assistant Name Role Phone Neema Pop Primary Care Physician [phone] Encounter [id number] Date(s): 06/09/23 - 06/09/[address], [address] [place] [address] [phone] Encounter Diagnosis H/O thyroid nodule(Discharge Diagnosis) - 06/09/23 Right thyroid nodule(Discharge Diagnosis) - 06/09/23 Discharge Disposition: Home or Self Care Attending Physician: DO Avery Melissa M Referring Physician: DO Avery Melissa M Allergies, Adverse Reactions, Alerts Substance Reaction [...] Plan Extracted from: Title:Office Visit Note Author:DO Avery Meliss a M Date:06/09/23 H/O thyroid nodule It is my impression that Ms. Tate is an 83-year-old female with instantly discovered right dominant thyroid nodule picked up on carotid ultrasound in 2020. Relatively unchanged from previous ultrasounds. I will see her back in 2025.At that timeif notchanged in size or characteristicsshe needs no further follow- up. Immunizations Given and Recorded Vaccine Date Status Refusal Reason influenza virus vaccine, inactivated 12/13/21 Give n pneumococcal 13-valent vaccine 1 11/24/16 Given tetanus/diphtheria/pertuss, acel (Tdap) 10/10/14 G iven zoster vaccine live 2 11/02/11 Recorded pneumococcal 23-valent vaccine 01/01/08 Recorded 1Early/Late Reason: Other : This was ordered prior to patient's visit today. 2Result Comment: [10/10/2014] per patient Medications amLODIPine 5 mg oral tablet Start: 06/05/23 12:50:00 EDT, 1 tab, PO, Daily Start Date: 06/05/23 Status: Ordered dicyclomine 10 mg oral capsule Start: 03/29/23 15:06:00 EST, 1 cap, PO, qid, Disp# 120 cap, Refills: 2, PRN: spasms, Pharmacy: [id number] Start Date: 03/29/23 Status: Ordered Entocort EC 3 mg oral delayed release capsule Start: 05/17/23 17:07:00 EDT, 2 cap, PO, qAM, Disp# 180 cap, Refills: 0, Pharmacy: [id number] Start Date: 05/17/23 Stop Date: [...] tab, Refills: 3, as needed prn, Pharmacy: [id number] Start Date: 06/05/23 Status: Ordered Lialda 1.2 g oral delayed release tablet Start: 05/17/23 17:07:00 EDT, 2 tab, PO, qhs, Disp# 60 tab, Refills: 5, Take in the evening., Pharmacy: [id number] Start Date: 05/17/23 Stop Date: 11/13/23 Status: Ordered lisinopril 20 mg oral tablet Start: 08/18/22 8:01:00 EDT, 1 tab, PO, Daily, Disp# 90 tab, Refills: 3, Pharmacy: [facility] Start Date: 08/18/22 Stop Date: 08/13/23 Status: Ordered Lomotil 2.5 mg-0.025 mg oral tablet Start: 05/09/23 14:20:00 EDT, 2 tab, PO, q6h, Disp# 240 tab, Refills: 5, PRN: as needed for loose stool, Pharmacy: [id number] Start Date: 05/09/23 Stop Date: 11/05/23 Status: Ordered Metamucil Start: 03/28/23 11:51:00 EST, 2 teaspoons po in am and qhs Start Date: 03/28/23 Status: Ordered metoprolol succinate 100 mg oral tablet, extended release Start: 04/07/22 12:49:00 EST, 1 tab, PO, Daily, Disp# 90 tab, Refills: 3, Pharmacy: [facility] Start Date: 04/07/22 Status: Ordered multivitamin Start: 10/13/22 12:53:00 EDT, 1 tab, PO, Daily Start Date: 10/13/22 Status: Ordered Mental Status 06/09/23 Barriers to Learning one year None evide nt Mandatory Health Literacy Documentation Yes Health Literacy Communication Barriers N ever Primary Language Yoruba Problem List Condition Confirmation Course Effective Dates [...] Dates Health Status Cl inical Service Informant H/O thyroid nodule Discharge Diagnosis 06/09/23 Non-Specified Right thyroid nodule Discharge Diagnosis 06/09/23 Non-Specified Procedures Procedure Date Related Diagnosis Body Site Status Chest X-ray 1 03/21/22 Completed Pessary, device 2 08/24/21 Complet ed Fluoroscopy 3 03/31/21 Completed Colonoscopy 4 01/14/20 Completed EGD (esophagogastroduodenosc opy) gastric outlet reduction 01/14/20 Complet ed Upper GI endoscopy 5 01/14/20 Comp [...] thyroid nodule. This is similar to the 2012 carotid doppler study. 7fusion 8carotid Vital Signs Most recent to oldest [Reference Range]: 1 Heart Rate 71 bpm (06/09/23 1:41 PM) Blood Pressure 136/64mmHg (06/09/23 1:41 PM) Cuff Pulse Pressure 72 mmHg (06/09/23 1:41 PM) BP Location # 1 Right Arm (06/09/23 1:41 PM) Social History Social History Type Response Tobacco Former smoker, Cigar ettes, Stopped age 73 Years. Smoking Status Former Smoker, quit in last 30 days Sex Female Outpatient Note * DO Avery Melissa M: PERFORM Event Display: .Outpt Note Authored Date: Chief Complaint No complaints of compressive symptoms. History of Present Illness The pleasure meeting Taylor twice in the endocrine surgery clinic [facility] on June 09, 2023. I first met her in April 2020where she was referred for a right-sided thyroid nodule found incidentally on a carotid duplex. FNA at that time returned with benign cytology. At that visit it measured 2.5 x 1.8 x 3 cm. I then saw her again in 2021 where it remained relatively unchangedmeasuring 2.2 x 1.9 x 3.1 cm. Today she presents for her 2-year follow-up. In the interim since her last visit with me she was recently hospitalized for diastolic heart failure and had a few changes to her medications. She is also recently quit smoking. Physical Exam Vitals & Measurements HR:71(Monitored) BP:136/64 SpO2:98% On physical exam she is well-appearing but has lost a significant amount of weight. She hasgaunt appearanceto her face as well as temporal wasting. Skin over the anterior neck is smooth and thyroid is nonpalpable. There are no palpable lymph nodes in the cervicalchains bilaterally. Neck ultrasonography was done in the office today. This revealed the right thyroid lobe to be overtaken by a large dominant nodule that measured2.2 x 2.7 x 3.6 cm. It was challenging to image given the amount of weight loss that she has hadcompared to her last visit 2 years ago. Would say is relatively unchanged. It was isoechoic without any internal vascularity or microcalcifications to suggestmalignancy. The left thyroid lobe was without any nodules. There are benign-appearing lymph nodes in the cervical neck compartments bilaterally. Assessment/Plan H/O thyroid nodule It is my impression that Ms. Tate is an 83-year-old female with instantly discovered right dominantthyroid nodule picked up on carotid ultrasound in 2020. Relatively unchanged from previous ultrasounds. I will see her back in 2025.At that timeif notchanged in size or characteristicsshe needs no further follow-up. Problem List/Past Medical History Ongoing Abnormal ankle [...] annual wellness visit, subsequent Medicare welcome exam [id number] adverse reaction to medication Sciatica Shoulder pain, [...] 06/01/2015Lumbar spine| Service Date: 2003Hysterectomy| Service Date: 1993Kn replacementDuplex scan performed Medications amLODIPine(amLODIPine 5 mg oral tablet), 5 mg= 1 tab, PO, Daily atropine-diphenoxylate(Lomotil 2.5 mg-0.025 mg oral tablet), 2 tab, PO, q6h, PRN, 5 refills budesonide(Entocort EC 3 mg oral delayed release capsule), 6 mg= 2 cap, PO, qAM clonazePAM(KlonoPIN 0.5 mg oral tablet), 0.5 mg= 1 tab, PO, bid, 3 refills dicyclomine(dicyclomine 10 mg oral capsule), 10 mg= 1 cap, PO, qid, PRN, 2 refills hydroCHLOROthiazide(hydroCHLOROthiazide 12.5 mg oral capsule), 12.5 mg= [...] due12/13/22and every 1year Due Adult COVID-19 Vaccination due06/09/23Unknown Frequency Adult Social Determinants of Health Screening due06/09/23Unknown Frequency Shingles Vaccine due06/09/23One-time only Due In Future Body Mass Index not due until06/05/24and every Satisfied(in the past 1 year) Satisfied Body Mass Index on05/22/23.Satisfied by KYM Waldrop Erin Electronic Signature on File Electronically Reviewed/Signed by: Coreen Avery DO Author Signature Dt/Tm:06/09/2023 03:00 PM Division of General Surgery [facility] Patient Care team information Care Team Personnel Name: GINNY Kellogg Tara Position: Nurse Pract - Family Med Member Role: Lifetime Relationship Address: Address: [address] [place] [id number] [place] Name: DO Ruiz Franklin J Position: Physician - Family Med Member Role: Lifetime Relationship Address: Address: [address] [address] [place] Name: DO Pop Kristen M Position: Physician - Family Med Member Role: Primary Care Provider Address: Address: [address] [facility] [address] [place] [address] Care Team Related Persons Name: EDIN TATE Address: home [address] [facility], [id number]"
--- OUTSIDE RECORDS SUMMARY | 2023-06-30 08:48 | External Medical Summary | Summary of Care ---
Author Name Unknown Organization [facility] Address [address] [place] [address] Phone [phone] Care Team Providers Care Mill Platform Supervisor Name Role Phone Neema Pop DO Primary Care Provider Reason for Visit * Reason Comments Outpatient Testing Encounter Details Date Type Department Care Team (Late st Contact Info) Description 06/06/2023 1:50 PM EDT [facility] [address] [facility] [phone] [facility] [address] [place] [address] HTN, goal below 140/90; Hypokalemia Allergies Active Allergy Reactions Criticality Noted Date [...] as of this encounter (statuses as of 06/06/2023) Medications Medication Sig Dispensed Refills Start Date [...] mouth in the morning. 0 09/09/2021 Active Potassium Chloride Anny ER 20 MEQ Oral Tablet Extended Release Take 1 Tablet by mouth in the morning and 1 Tablet before bedtime. Do all this for 7 days. 14 Tablet 0 05/30/2023 06/06/2023 Active Metamucil 28.3 % Oral Powder (Psyllium) [...] the morning. 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 Hypokalemia 05/31/2023 PTSD (post-traumatic stress disorder) 01/20/2022 Collagenous colitis 01/04/2022 Uncontrolled hypertension 09/15/2021 Anxiety 06/22/2020 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 documented as of this encounter (statuses as of 06/06/2023) Immunizations Name Administration Dates Next Due TDAP [...] 12/12/2023 1:30 PM EDT Office Visit Cardiology, [facility] [address] [place] [address] [address], [address] [place] [address] Pending Results Name Type Priority Associated Diagnoses Date /Time BASIC METABOLIC PANEL Lab Routine HTN, goal below 140/90 Hypokalemia 06/06/2023 1:55 PM EDT Health Maintenance Due Date Last Done Comments DXA Scan 1940 Depression Screening 1952 Albumin/Creatinine Ratio 1958 Zoster Vaccines (2 of 3) 12/28/2011 11/02/2011 COVID-19 Vaccine (4 - season) 2022 12/14/2020, 06/05/2020, 05/15/2020 Influenza Vaccine (FLU shot) (Season Ended) 2023 GFR 05/31/2024 06/01/2023, 05/21, 05/30/2023, Additional history exists DTaP,Tdap,and Td Vaccines (3 [...] HTN, goal below 140/90 Unspecified essential hypertension Hypokalemia Hypopotassemia documented in this encounter Advance Directives Latest Code Status on File Code Status Date Activated Date Inactivated Comments Full Code 05/31/2023 1:21 AM 06/01/2023 5:50 PM This order reflects the patients wishes and were consensually agreed upon. Question Answer Comments Discussion of Advance Directives occurred with: Patient Care Teams Mill Platform Supervisor Relationship Specialty Start Date End Date Neema Pop DO 6 [facility] [address] Amanda [address] [place] [id number] PCP - General 09/03/07 documented as of this encounter
--- OUTSIDE RECORDS SUMMARY | 2023-06-30 08:48 | External Medical Summary | Summary of Care ---
Author Name Unknown Organization [facility] Address [address] [place] [address] Phone [phone] Care Team Providers Care Director Of Residential Services Name Role Phone Neema Pop Primary Care Provider Reason for Referral * Evaluate & Treat - Unlimited Visits (Within 10 days (routine)) - Pending Review Specialty Diagnoses / Procedures Referred By Contact Referred To Contact Cardiovascular Medicine / Cardiology Diagnoses Edema leg Chest pain Heart failure (HCC) Uncontrolled hypertension Hypokalemia Milton Fonseca MD [address] [facility] [place] [address] Jeronimo Harris MD [address] [place] [address] Referral ID Status Reason Start Date Expiration Date Visits Requested Visits Authorized [id number] Pending Review Specialty Services Required 06/01/[phone] Question Answer Referral Priority Within 10 days (routine) Where should this appointment be scheduled? [facility] To which of the following clinics are you referring your patient? General Cardiology Clinic Comments Discharge Order Reason for Visit * Reason Comments Swelling Hypertension * Auth/Cert Specialty Diagnoses / Procedures Referred By Contac t Referred To Contact [facility] [address] [place] [address] Phone: [phone] Emergency Medicine [address] [address] Referral ID Status Reason Start Date Expiration Date Visits Re quested Visits Authorized [id number] Encounter Details Date Type Department Care Team (Late st Contact Info) Description 05/30/2023 6:22 PM EDT - 06/01/2023 1:45 PM EDT Emergency [facility] 3rd Floor [address] [place] [address] Vinayak Engle MD [address] [place], [place] [id number] Nate Fry MD [address] [place], [place] [address] [place] [address] Milton Fonseca MD [address] [place] [id number] Pt Handout (on AVS) Discharge Disposition: Home - Self Care Allergies [...] as of this encounter (statuses as of 06/02/2023) Medications Medication Sig Dispensed Refills Start Date End Date Status Coenzyme Q10 (CO Q 10) 10 MG CAPS Take by mouth. 0 Acti ve Multivitamin Adult Oral Tablet Take by mouth. [...] GM Oral Tablet Delayed Release (Lialda) Take 1 Tablet by mouth in the morning. 0 09/09/2021 Active Metoprolol-HCTZ ER 100-12.5 MG Oral Tablet Extended Release 24 Hour Take by mouth . 0 Active Potassium Chloride Anny ER 20 MEQ [...] mouth in the morning. 0 09/19/2022 Active amLODIPine Besylate 5 MG Oral Tablet (Norvasc) Take 1 Tablet by mouth in the morning. 30 Tablet 0 06/02/2023 Active hydroCHLOROthiazi de 12.5 MG Oral Capsule Take 1 Capsule by mouth in the morning. 30 Capsule 0 06/02/2023 Active oxyCODONE HCl 5 MG Oral Tablet (Oxy IR) Start: 07/09/20 10:48:00 EDT, See Instructions, Disp# 120 tab, Refills: 0, 1 tab PO QID PRN, Note to Pharmacy: PDMP verified, PRN: as needed for pain, Pharmacy: [facility] 0 07/09/2020 05/31/2023 Discontinued (Medication List Clean Up) Probiotic Acidophilus BioBeads Oral Capsule Take by mouth 1 Capsule three times a day with meals . 0 05/31/2023 Discontinued (Medication List Clean Up) LORazepam 0.5 MG Oral Tablet (Ativan) Take by mouth 0.5 mg every 6 hours as needed . 0 09/22/2021 05/31/2023 Discontinued (Medication List Clean Up) Polyethylene Glycol 3350 17 GM/SCOOP Oral Powder (MiraLax) Take by mouth 17 g daily as needed . 0 09/09/2021 05/31/2023 Discontinued (Medication List Clean Up) Mirabegron ER 50 MG Oral Tablet Extended Release 24 Hour (Myrbetriq) Take 1 Tablet by mouth in the morning. 0 03/08/2022 05/31/2023 Discontinued (Medication List Clean Up) Proventil HFA 108 (90 Base) MCG/ACT Inhalation Aerosol SolutionIndicatio ns:COVID-19 virus infection Inhale 2 Puffs by mouth every 4 hours as needed for Congestion, Cough or Wheezing. 18 g 0 03/26/2022 05/31/2023 Discontinued (Medication List Clean Up) Benzonatate 100 MG Oral CapsuleIndication s:COVID-19 virus infection Take 1 Capsule by mouth 3 times a day as needed for Cough (may make you sleepy). 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 Hypokalemia 05/31/2023 PTSD (post-traumatic stress disorder) 01/20/2022 Collagenous colitis 01/04/2022 Uncontrolled hypertension 09/15/2021 Anxiety 06/22/2020 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 documented as of this encounter (statuses as of 06/02/2023) Immunizations Name Administration Dates Next Due TDAP (age 10 and older)(Boostrix) 09/23/2021 09/24/2031 documented as of this encounter Social History Tobacco Use Types Packs/Day Years Used Date Smoking Tobacco: Former Cigarettes 0.3 69.3 1 955 - 05/29/2023 Passive Smoke Exposure: Current Smokeless Tobacco: Never Tobacco Cessation:Counseling Given: Not Answered Comments:1/day Alcohol Use Standard Drinks/Week Comments Not [...] Sign Reading Time Taken Comments Blood Pressure 138/69 06/01/2023 10:48 AM EDT Pulse 82 06/01/2023 10:48 AM EDT Temperature 37.1 C (98.8 F) 06/01/2023 10:48 AM E DT Respiratory Rate 20 06/01/2023 10:48 AM EDT Oxygen Saturation 97% 06/01/2023 10:48 AM EDT Inhaled Oxygen Concentration - - Weight 50.2 kg (110 lb 9.6 oz) 05/31/2023 2:40 A M EDT Height 162.6 cm (5' 4") 05/31/2023 2:40 AM EDT Body Mass Index 18.98 05/31/2023 2:40 AM EDT documented in this [...] 05/31/2023 documented as of this encounter Discharge Summaries * Milton Fonseca MD - 06/01/2023 1:45 PM EDT Images from the original note were not included. [address] [address] Admission Date: 05/30/2023 Discharge Date: 06/01/2023 RECOMMENDED TO DO FOR NEXT PROVIDER(S): Follow up with cardiology Start amlodipine and hydrochlorothiazide Consider Psychology evaluation for anxiety Start using compression socks for edema REASON(S) FOR MEDICATION CHANGE(S): Per dx below DISPOSITION ON DISCHARGE: home Active Hospital Problems Diagnosis *Principal Diagnosis - Uncontrolled hypertension Ankle swelling Cigarette smoker Anisocoria Hypokalemia Collagenous colitis Anxiety Resolved Hospital Problems No resolved problems to display. ADMISSION HISTORY & PHYSICAL EXAM (focused): Per admission team PRESENTING PROBLEM: uncontrolled BD HPI: This is an 83 yo woman with below pmh that includes htn, colitis, smoker, anxiety disorder, depression, ptsd. She noticed that her ankles are swollen for several weeks and came to her pcp; thereBP was very elevated and she was sent to ED to be checked out. While in ED, d-dimer was elevated. She has no respiratory complaints. Also, during examination it was noted that her right pupil is sligh tly larger than her left, and ct of head was ordered. She denies any visual problems and denies anyneurologic symptoms. She did complain of trouble with dentist today as her partial wasn't fitting. Also, she didn't take her lisinopril this morning. She also takes lorazepam regularly and missed herdose today. No fever, chills, dyspnea, nausea, vomiting. She does have trouble walking up a hill, about 1/4 of a mile but this is stable and she denies worsening exercise tolerance Physical Exam Most Recent Vital Signs: BP: 221 mmHg/83 mmHg (05/31/23 0019) Pulse: 62 (05/31/2318) Temp: 36.5 C (05/30/231817) Temp Summary: Temp Min: 36.5 C (97.7 F) Max: 36.5 C (97.7 F) SpO2: 99 % (05/31/23 0019) O2 flow rate: Supplemental O2 Delivery: Constitutional: no acute distress HEENT: normal: normocephalic, atraumatic Eyes: sclera and conjunctiva normal; right pupil 4mm left pupil 3mm Neck: supple, normal range of motion CV: normal rate Chest: normal respiratory effort, lungs clear to auscultation Abdomen: soft, bowel sounds normal, no tenderness Extremities: 1+ edema Skin: warm, dry, intact: Neuro: alert, oriented to person, place,non-focal HOSPITAL COURSE (focused): Taylor Tate came to the hospital with: complaint of Lower extremity edema, chest pain, uncontrolled HTN Her main diagnosis at discharge was: Lower extremity edema, chest pain, uncontrolled hypertension, diastolic dysfunction- The left ventricular diastolic function is mildly abnormal (grade I) She was monitored for chest pain No more chest pain while admitted She did have notable bilateral LE edema LE duplex negative for DVT. Echo did show mild diastolic dysfunction Her BP was uncontrolled but largely noted to be affected by anxiety She declined psychology or medications for anxiety. She wishes to continue with her current anxietymedication regimen. Medications added for BP control. Recommend monitoring HTN for 2 weeks and adjust accordingly. Operations & Procedures performed: none Complications: none significant Significant Lab and Imaging Results: As mentioned above Results Pending at Discharge: Lab Results Pending at Discharge: None MEDICATION UPDATES AT DISCHARGE START taking these medications INSTRUCTIONS amLODIPine 5 MG Tablet Commonly known as: Norvasc Start taking on: June 02, 2023 Notes to patient: Treats high blood pressure Take 1 Tablet by mouth in the morning. hydroCHLOROthiazide 12.5 MG Capsule Start taking on: June 02, 2023 Notes to patient: Removes excess body fluid & can lower blood pressure Take 1 Capsule by mouth in the morning. Potassium Chloride ER 20 MEQ Tbcr Notes to patient: Used to treat or prevent low potassium levels Take 1 Tablet by mouth in the morning and 1 Tablet before bedtime. Do all this for 7 days. CONTINUE taking these medications INSTRUCTIONS Budesonide ER 3 MG Cpep Commonly known as: Entocort EC Notes to patient: Used to treat asthma. Do not use this drug to treat an asthma attack. Use a rescue inhaler. Take 3 tablets by mouth daily then taper as instructed. Co Q 10 10 MG Caps Notes to patient: Used to prevent heart problems after heart surgery Take by mouth. dicyclomine 10 MG Capsule Commonly known as: Bentyl Notes to patient: Used to treat GI (gastrointestinal) spasms and irritable bowel syndrome Take 1 Capsule by mouth 2 times a day as needed. diphenoxylate-atropine 2.5-0.025 mg per tab 2.5-0.025 MG Tablet Commonly known as: Lomotil Notes to patient: Used to treat diarrhea Take 1 Tablet by mouth 4 times a day as needed for Diarrhea. KlonoPIN 0.5 MG Tablet Generic drug: clonazePAM Notes to patient: Used to treat panic attacks and seizures 1 Tablet 2 times a day as needed for Anxiety. Lisinopril 20 MG Tablet Commonly known as: Prinivil Notes to patient: Used to treat high blood pressure, heart failure (weak heart), and to help heart function after a heart attack Take 1 Tablet by mouth in the morning. Mesalamine 1.2 GM Tbec Commonly known as: Lialda Notes to patient: It is used to treat ulcerative colitis, keep ulcerative colitis flares from coming back, and to treat mild to moderate disease at the far end of the colon. Take 1 Tablet by mouth in the morning. Metamucil 28.3 % Powd Generic drug: Psyllium Notes to patient: Used to treat constipation Take 2 Scoops by mouth in the morning and 2 Scoops at noon and 2 Scoops before bedtime. Pt takes 2 tsp three times daily.. Metoprolol-HCTZ ER 100-12.5 MG Tb24 Notes to patient: Used to treat high blood pressure and get rid of extra fluid Take by mouth . Multivitamin Adult Tabs Notes to patient: Used to help growth and good health Take by mouth. Vibegron 75 MG Tabs Commonly known as: Gemtesa Notes to patient: Used to treat an overactive bladder Take 1 Tablet by mouth in the morning. SCHEDULED FOLLOW-UP: Future Appointments Appt Date/Time Provider Department 06/05/2023 12:45 AM Dav Magana DO Cardiology, [facility] 06/06/2023 1:00 PM Fly Silveira DO 06/06/2023 1:00 PM Fly Silveira DO Outpatient Follow Up CARDIOLOGY REFERRAL OP Other Information Indwelling Devices: LINES None Vital Signs (last recorded): Most Recent Systolic BP: 138 mmHg (06/01/231047) Most Recent Diastolic BP: 69 mmHg (06/01/231047) Pulse: 82 (06/01/231047) Resp: 20 (06/01/231047) Most Recent Temperature: 37.11 C (06/01/231047) Weight: 50.2 kg (110 lb 9.6 oz) (05/31/23 0240) SpO2: 97 % (06/01/231047) Allergies: Lactose, Other allergy (see comments), Ciprofloxacin, Macrobid [nitrofurantoin], Augmentin [amoxicillin-pot clavulanate], Bactrim [sulfamethoxazole-trimethoprim], Doxycycline, Flagyl [metronidazole], and Sulfa antibiotics Activity: as tolerated Diet: age appropriate diet Code Status: Full Code Condition on Discharge: stable Isolation status: None Cognition: normal HOSPITAL CONSULTS ORDERED: None REFERRING PHYSICIAN: Ref: SELF[[id number]] NO STREET ADDRESS AVAILABLE None (office) None (fax) PRIMARY CARE PROVIDER: PCP: Neema Pop DO [address] [facility] [place] [address] / [facility] [address] (office) [phone] (fax) Note: To contact a physician responsible for this patients hospital care, please call [facility] [phone]. I spent a total of 45 minutes coordinating, documenting, and providing care for this patient excluding time spent in the performance of separately billed services. documented in this encounter Discharge Instructions * Discharge Instr - AVS* Milton Fonseca MD - 06/01/2023 12:26 PM EDT Discharge Date: 06/01/2023 The information below provides you with the instructions and the list of medications you need to betaking following discharge from the hospital. If you have any questions, please ask before leaving. If you have questions after leaving, you can reach us at the numbers below. YOUR HOSPITAL PROVIDERS: Discharging Provider: Milton Fonseca MD Provider Department: Hospital Medicine To reach this Provider Monday through [place] (8:00 AM to 4:30 PM) for any questions or test results: Call [phone] For after-hours concerns: Call [phone] and have your provider paged, or the provider registered nurse bone marrow transplant for the Department of Hospital Medicine paged. Please note, the discharging provider will not be able to provide you with any medications refills.Please discuss these with your primary care provider. Worsening Symptoms: If you have new symptoms, or your symptoms get worse, please contact your Discharge Provider or Primary Care Provider (PCP). If these providers are not available, you can go to your local [facility] or [facility] Clinic during their business hours. In an EMERGENCY situation: Call 911 or go to the nearest emergency room. A BRIEF SUMMARY OF YOUR HOSPITAL STAY: You came to the hospital with: complaint of Lower extremity edema, chest pain, uncontrolled HTN Your main diagnosis at discharge was: Lower extremity edema, chest pain, uncontrolled hypertension, diastolic dysfunction- The left ventricular diastolic function is mildly abnormal (grade I) Operations & Procedures performed: none Complications: none significant Inpatient test results that are pending at discharge: none Advance Directive Documented: Advance Directive Does the Patient have an Advance Directive? No YOUR FOLLOW UP APPOINTMENTS: Primary Care Provider Information: PCP: Neema Pop DO [address] [facility] [place] [address] / [place] [address] (office) [phone] (fax) An appointment was requested with your PCP (Neema Pop DO) within 7 days. (Please take this form to this visit with your primary care physician.) You need the following studies in the future: CBC, CMP INSTRUCTIONS: Diet: Previous diet Activity: As tolerated Follow up with cardiology Start amlodipine and hydrochlorothiazide Consider Psychology evaluation for anxiety Start using compression socks for edema documented in this encounter H&P Notes * Khris Carpenter MD - 05/31/2023 1:36 AM EDT Images from the original note were not included. [facility] 16/X PRESENTING PROBLEM: uncontrolled BD HPI: This is an 83 yo woman with below pmh that includes htn, colitis, smoker, anxiety disorder, depression, ptsd. She noticed that her ankles are swollen for several weeks and came to her pcp; thereBP was very elevated and she was sent to ED to be checked out. While in ED, d-dimer was elevated. She has no respiratory complaints. Also, during examination it was noted that her right pupil is sligh tly larger than her left, and ct of head was ordered. She denies any visual problems and denies anyneurologic symptoms. She did complain of trouble with dentist today as her partial wasn't fitting. Also, she didn't take her lisinopril this morning. She also takes lorazepam regularly and missed herdose today. No fever, chills, dyspnea, nausea, vomiting. She does have trouble walking up a hill, about 1/4 of a mile but this is stable and she denies worsening exercise tolerance Subjective Patient's past history, medications, and allergies were reviewed. Objective Physical Exam Most Recent Vital Signs: BP: 221 mmHg/83 mmHg (05/31/2318) Pulse: 62 (05/31/2318) Temp: 36.5 C (05/30/23 1818) Temp Summary: Temp Min: 36.5 C (97.7 F) Max: 36.5 C (97.7 F) SpO2: 99 % (05/31/2318) O2 flow rate: Supplemental O2 Delivery: Constitutional: no acute distress HEENT: normal: normocephalic, atraumatic Eyes: sclera and conjunctiva normal; right pupil 4mm left pupil 3mm Neck: supple, normal range of motion CV: normal rate Chest: normal respiratory effort, lungs clear to auscultation Abdomen: soft, bowel sounds normal, no tenderness Extremities: 1+ edema Skin: warm, dry, intact: Neuro: alert, oriented to person, place,non-focal Peripheral Line Left;Lower 20 Gauge (Active) Number of days: 0 STUDIES: Encounter Orders Labs and other studies reviewed with pertinent findings noted below: Results for orders placed or performed during the hospital encounter of 05/30/23 D-DIMER Result Value Ref Range D-Dimer 0.89 (H) <0.50 ug/mL FEU COMPREHENSIVE METABOLIC PANEL Result Value Ref Range BUN 16 6 - 20 mg/dL Creatinine 0.7 0.5 - 1.0 mg/dL Estimated Glomerular Filtration Rate 84 >=60 mL/min Sodium 143 135 - 146 mmol/L Potassium 3.4 (L) 3.5 - 5.1 mmol/L Chloride 106 98 - 107 mmol/L CO2 26 22 - 32 mmol/L Anion Gap 11 7 - 15 mmol/L Glucose 96 70 - 120 mg/dL Albumin 3.5 (L) 3.8 - 5.0 g/dL AST 19 10 - 35 U/L Alkaline Phosphatase 64 35 - 130 U/L Bilirubin, Total 0.2 <=1.2 mg/dL Calcium 8.7 8.4 - 10.2 mg/dL Protein 5.9 (L) 6.0 - 8.3 g/dL ALT 13 10 - 35 U/L MAGNESIUM Result Value Ref Range Magnesium 2.2 1.5 - 2.6 mg/dL PHOSPHORUS Result Value Ref Range Phosphorus 3.5 2.5 - 4.8 mg/dL CBC Result Value Ref Range WBC 6.66 4.00 - 10.80 K/uL RBC 4.34 3.85 - 5.15 M/uL HGB 12.9 12.0 - 15.3 g/dL HCT 39.5 36.0 - 45.2 % MCV 91.0 81.5 - 97.5 fL MCH 29.7 27.0 - 34.0 pg MCHC 32.7 32.0 - 36.0 g/dL RDW 14.9 11.5 - 15.5 % PLT 293 140 - 400 K/uL MPV 10.6 6.6 - 11.1 fL nRBCs 0 <=0 /100 WBCs DIFFERENTIAL, AUTOMATED Result Value Ref Range WBC 6.66 4.00 - 10.80 K/uL Neutrophils % 52.8 40.0 - 75.0 % Lymphocytes % 36.2 18.0 - 42.0 % Monocytes % 7.7 1.0 - 11.0 % Eosinophils % 2.3 0.0 - 6.0 % Basophils % 0.8 0.0 - 2.0 % Immature Granulocytes % 0.2 0.0 - 2.0 % Absolute Neutrophils 3.53 1.80 - 7.70 K/uL Absolute Lymphocytes 2.41 1.00 - 4.80 K/ul Absolute Monocytes 0.51 0.00 - 1.10 K/uL Absolute Eosinophils 0.15 0.00 - 0.70 K/uL Absolute Basophils 0.05 0.00 - 0.20 K/uL Absolute Immature Granulocytes 0.01 0.00 - 0.20 K/uL TROPONIN T, HIGH SENSITIVITY Result Value Ref Range Troponin T, High Sensitivity 12 <=14 ng/L ETHANOL, MEDICAL Result Value Ref Range ETHANOL, MEDICAL Negative Negative BNP, NT-PRO Result Value Ref Range BNP, NT-Pro 892 (H) <300 pg/mL T4, FREE Result Value Ref Range T4, Free 1.1 0.9 - 1.7 ng/dL CT HEAD/BRAIN WO CONTRAST Final Result PROCEDURE INFORMATION: Exam: CT Head Without Contrast Exam date and time: 05/30/2023 10:54 PM Age: 83 years old Clinical indication: Other: Abnormal pupils; Additional info: Asymmetric pupil size TECHNIQUE: Imaging protocol: Computed tomography of the head without contrast. Radiation optimization: All CT scans at this facility use at least one of these dose optimization techniques: automated exposure control; mA and/or kV adjustment per patient size (includes targeted exams where dose is matched to clinical indication); or iterative reconstruction. COMPARISON: No relevant prior studies available. FINDINGS: Brain: There is no acute hemorrhage or infarct. Normal fontana-white differentiation is demonstrated. Cerebral ventricles: There is mild ventricular dilatation and widening of the sulci compatible with the patient's age. Pituitary gland and sella: Normal. Paranasal sinuses: The visualized sinuses are unremarkable. No fluid levels. Mastoid air cells: The visualized mastoid air cells are well aerated. Orbital cavities: Normal. Bones/joints: The bony calvarium is intact. Soft tissues: Unremarkable. IMPRESSION IMPRESSION: 1. No acute intracranial pathology. 2. Mild age-related atrophy. THIS DOCUMENT HAS BEEN ELECTRONICALLY SIGNED BY CB WOLF DO XR CHEST 2 VIEWS Final Result PROCEDURE INFORMATION: Exam: XR Chest Exam date and time: 05/30/2023 7:53 PM Age: 83 years old Clinical indication: Other: PT coming into the er w/ edema. TECHNIQUE: Imaging protocol: Radiologic exam of the chest. Views: 2 views. COMPARISON: CT ABDOMEN PELVIS WO(Adult) 06/08/2020 3:26 PM FINDINGS: Lungs: No acute lung disease. No consolidation. Pleural spaces: No pleural effusion. No pneumothorax. Heart/Mediastinum: No cardiomegaly. Bones/joints: Degenerative changes. IMPRESSION IMPRESSION: No acute lung disease. THIS DOCUMENT HAS BEEN ELECTRONICALLY SIGNED BY KB HENSON MD XR FOOT 3 OR MORE VIEWS Final Result PROCEDURE INFORMATION: Exam: XR Left Foot Exam date and time: 05/30/2023 7:53 PM Age: 83 years old Clinical indication: Pain; Foot; Left; Additional info: Pain x 2 weeks TECHNIQUE: Imaging protocol: Radiologic exam of the left foot. Views: 3 or more views. COMPARISON: DX XR ANKLE 3 OR MORE VIEWS 05/30/2023 7:53 PM FINDINGS: Bones/joints: No acute bony abnormality. Generalized osteopenia with degenerative changes. Soft tissues: Normal. IMPRESSION IMPRESSION: No acute findings. THIS DOCUMENT HAS BEEN ELECTRONICALLY SIGNED BY KB HENSON MD XR ANKLE 3 OR MORE VIEWS Final Result PROCEDURE INFORMATION: Exam: XR Left Ankle Exam date and time: 05/30/2023 7:53 PM Age: 83 years old Clinical indication: Pain; Ankle; Left; Additional info: Pain x 2 weeks TECHNIQUE: Imaging protocol: Radiologic exam of the left ankle. Views: 3 or more views. COMPARISON: DX XR FOOT 3 OR MORE VIEWS 05/30/2023 7:53 PM FINDINGS: Bones/joints: No acute bony abnormality. Generalized osteopenia with degenerative changes. Soft tissues: Mild soft tissue swelling. IMPRESSION IMPRESSION: No acute findings. THIS DOCUMENT HAS BEEN ELECTRONICALLY SIGNED BY KB HENSON MD MRI BRAIN WITHOUT CONTRAST (Results Pending) VASC DUPLEX VENOUS LE BILAT (Results Pending) I personally reviewed the EKG which shows NRS Assessment and Plan IMPRESSION: Principal Problem: Uncontrolled hypertension Active Problems: Anxiety Collagenous colitis Ankle swelling Cigarette smoker Anisocoria Hypokalemia Resolved Problems: * No resolved hospital problems. * DIFFERENTIAL AND PLAN: Patient has elevated BP and it could be from stressful day and missing her medications, or she may need to have her bp meds adjusted. BNP is elevated and ankles are swollen, so she may have chf. -admit to monitored bed -check echo in AM, repeat trop -MRI ordered for morning regarding anisocoria; I suspect this is a normal variant and doubt stroke -replace potassium -resume bp meds -resume anxiolytics -check duplex of legs to r/o dvt PHARMACOLOGIC VTE PROPHYLAXIS:Enoxaparin CODE STATUS: Full Code EXPECTED DISCHARGE DATE: 1-2 days or more I spent a total of 55 minutes coordinating, documenting, and providing care for this patient excluding time spent in the performance of separately billed services. documented in this encounter Nursing Notes * Adia Leahy RN - 06/01/2023 1:38 PM EDT VIRTUAL RN [address] [address] Name: Taylor Tate Location: [facility] [id number] Date: 06/01/2023 Time: 1:38 PM I completed the Discharge Navigator. The patient was in the hospital. I was not in a hospital or clinic location. After connecting through [employer], the patient was identified by name and date of and / or wristband checked. Patient (or authorized legal member service representative) was then informed that this was a Virtual Nurse visit and was being conducted confidentially over secure lines. I used a headset and other methods to ensure confidentiality for the patient. Patient acknowledged consent and understanding of privacy and security of the Virtual Nurse visit. I presented the opportunity for the patient or authorized legal member service representative to ask any questions regarding the visit today. The patient or authorized legal member service representative agreed to participate. Discharge instructions were reviewed with the patient who verbalized understanding. Patient will use a wheelchair for transport to the hospital for behavioral medicine. The patient would like to see Dr. Harris for her cardiac issues and will discuss with her PCP. Aydenn patient also commented that upon admission she did not e xperience chest pain. * Neema Baum RN - 05/31/2023 3:01 AM EDT VIRTUAL RN [address] [id number] Name: Taylor Tate Location: [facility] [id number] Date: 05/31/2023 Time: 3:01 AM I completed the Admission Navigator. The patient was in the hospital. I was not in a hospital or clinic location. After connecting through [employer], the patient was identified by name and date of and / or wristband checked. Patient (or authorized legal member service representative) was then informed that this was a Virtual Nurse visit and was being conducted confidentially over secure lines. I used a headset and other methods to ensure confidentiality for the patient. Patient acknowledged consent and understanding of privacy and security of the Virtual Nurse visit. I presented the opportunity for the patient or authorized legal member service representative to ask any questions regarding the visit today. The patient or authorized legal member service representative agreed to participate. TT sent to bedside nurse Zamzam Goldstein RN noting completion of virtual admission with the exception for patient belongings, skin assessment, dysphagia screening and aggression scale. Reviewed and updated patient's medication list - changes made - notify provider. Pt is lactose intolerant - notify dietary. * Zamzam Goldstein RN - 05/31/2023 2:40 AM EDT Pt received to 3019d from the ER via wheelchair. Pt transferred to bed independently. Pt alert and oriented. Sl anxious at bedside. Bp currently 205/83. Assessment completed. Pt denies any c/o pain. Resp even and nonlabored. Pt oriented to room and surroundings. Bed in low position and call marie inreach. Dual Licensed Skin Assessment completed by Bernard Goldstein RN and Bernard Guerrier LPN. The patient is/has a N/A Skin Breakdown (includes non blanchable erythema): No 2366-- Pt connected to virtual nurse for admission question review. 0400-- MRI questionnaire completed and faxed to MRI department. documented in this encounter ED Notes * Vinayak Engle MD - 05/30/2023 7:21 PM EDT HISTORY OF PRESENT ILLNESS Taylor Tate is a 83 year old female who presents to the ED for evaluation of Swelling and Hypertension. The patient was seen at 05/30/231919. Pt c/o bilateral lower leg edema, no sob, no cp, no increased salt in diet. Pt taking medication asprescribed, she is taking lisinopril and metoprolol. She states that her bp has been high lately aswell. at bedside Pt here for BLE swelling. Pt states that she noticed symptoms initially 2-3 weeks ago. Continues toget worse. Denies any associated pain or difficulty with ambulation. Pt states that she also noticed today at a dr appt that her BP was "noelle high". Pt reports that she takes lisinopril and metoprolol, with no recent changes made. Pt denies any missed or skipped doses recently. Denies any associated CP/SOB/dizziness. He has had bilateral leg swelling for couple weeks on arrival this is her greatest concern along with blood pressure which finds particularly concerning although it sounds like she has not yet had her evening dose of blood pressure medicine she takes lisinopril in the morning and Toprol-XL in the evening She additionally has had difficulty with exertion for several weeks where she has to stop and rest then feels better continues on. Has multiple relatives with coronary artery disease, some relatively young age at onset, she says her father suddenly in front of her when she was age 12 Smokes less than half pack cigarettes a day no alcohol 1 cup of coffee a day 1 caffeinated tea drank per day Hypertension The patient's allergies, past history, and medications were reviewed. PHYSICAL EXAM Initial Vitals (see all): BP 217/74 | Pulse 71 | Resp 20 | Temp 97.7 | O2 99 %Weight 51.35 kg | Height 162.6 cm | BMI 19.43 kg/m2 Initial Pain Assessment (see all): 0 (no pain)/10 ([facility] Adult Scale 0-10) Physical Exam Vitals and nursing note reviewed. HENT: Head: Normocephalic. Right Ear: External ear normal. Left Ear: External ear normal. Mouth/Throat: Pharynx: Oropharynx is clear. Eyes: Extraocular Movements: Extraocular movements intact. Comments: Right pupil 6 mm Left pupil 4 mm Neck: Trachea: No tracheal deviation. Cardiovascular: Rate and Rhythm: Normal rate. Pulmonary: Effort: Pulmonary effort is normal. Breath sounds: Normal breath sounds. Abdominal: Palpations: Abdomen is soft. Tenderness: There is no abdominal tenderness. Musculoskeletal: General: No deformity. Skin: Findings: No rash. Neurological: Mental Status: She is alert. GCS: GCS eye subscore is 4. GCS verbal subscore is 5. GCS motor subscore is 6. Motor: No weakness. Psychiatric: Behavior: Behavior is cooperative. PROCEDURES AND TREATMENTS ED Orders | ED Results MEDICAL DECISION MAKING Nursing notes and vital signs were reviewed. ED Course as of 05/31/23 0215 e May 30, 2023 223 She says prior stool testing negative [RO] 2238 Ddimer uncorrectable, lovenox and AM [RO] 2239 She wants outpatient cardiology [RO] 2242 She wants hypertension clinic referral [RO] 2246 Since cardiac testing is negative so far she would prefer to go home. It does not sound like there has been any recent roving changer several weeks in her symptoms, describes no chest pain, single troponin seems adequate for risk stratification [RO] 2253 Patient is not sure if her pupils have ever been different sizes before or not. Patient also aware that HEART score is 5, she would still like to do outpatient cardiology consultation. at bedside asks for clarification but seems to be having difficulty understanding the specifics of the workup and plan. Will revisit that after CT scan of head, which does not appear to ever has been done in our system before. [RO] 2255 Patient [facility] [RO] MonMay 31, 2023 0042 I checked her pulse myself at this time and it was 72, this does not prohibit the toprol xl dose that she is due for, she did take her lisinopril this morning. [RO] 0057 Very extensive discussion at bedside regarding the indications for hospitalization and furthertesting prior to returning to outpatient management. There continues to be no certainty at all regarding when the asymmetric pupils began and in fact at bedside has evolved certainly that this is indeed a new problem and relatively recently. Fortunately CT negative however MRI necessary to settle the issue regarding if this new asymmetric pupil finding represents something important such as recent ischemic stroke or other serious problem. Additional issue is leg swelling, unfortunately D-dimer is uncorrectable high, patient will need venous Dopplers to assess that. Initial plan was togive blood thinner shot however with the brain issue in play it was important to make sure that stroke is not found prior to clarifying . [RO] 0101 Additionally has exertion intolerance such that she has had to frequently rest when doing fairly routine tasks such as walking. However when she realized the HEART score of 5 indicated risk of as yet undiagnosed CAD, she became very worried, and at bedside also very concerned. Last stress test was many years ago. Patient continues to smoke and has multiple family members including father that had CAD and some relatively early. Further workup indicated prior to departure [RO] 0112 Dr. Peraza: continue care in the hospital [RO] ED Course User Index [RO] Vinayak Engle MD Scoring Tools Results: HEART Score: 5 Amount and/or Complexity of Data Reviewed Labs: ordered. Radiology: ordered. ECG/medicine tests: ordered. Risk Prescription drug management. Decision regarding hospitalization. Clinical Impressions Edema leg Elevated d-dimer Malaise and fatigue Pupil dilation Disposition Admitted. I discussed the management of this patient with the admitting provider and I made a decision to admit the patient. Admission Order Ordered Status . 05/31/23 0114 Assign to Observation ONCE Acknowledged Discharge Medications Disp Refills Start End Potassium Chloride Anny ER 20 MEQ Oral Tablet Extended Release 14 Tablet 0 05/30/2023 06/06/2023 Sig - Route: Take 1 Tablet by mouth in the morning and 1 Tablet before bedtime. Do all this for 7 days. - Oral Class: ePrescribing Renewals Renewal requests to authorizing provider (Vinayak Engle MD) <b>prohibited</b> Vinayak Engle * Roque Stuart RN - 05/30/2023 6:20 PM EDT Pt here for BLE swelling. Pt states that she noticed symptoms initially 2-3 weeks ago. Continues toget worse. Denies any associated pain or difficulty with ambulation. Pt states that she also noticed today at a dr appt that her BP was "noelle high". Pt reports that she takes lisinopril and metoprolol, with no recent changes made. Pt denies any missed or skipped doses recently. Denies any associated CP/SOB/dizziness. documented in this encounter Miscellaneous Notes * Pt Handout (on AVS) - Nicolasa Mendieta RN - 06/01/2023 1:09 PM EDT [id number] Heart Failure What is heart failure? The heart is a muscle that pumps oxygen-rich blood to all parts of the body. When you have heart failure, the heart can?t pump as well as it should. Or the heart muscle can?t relax and fill the pumping chamber with blood. Blood and fluid may back up into the lungs. This causes heart failure. And itcauses pulmonary edema. Some parts of the body also don?t get enough oxygen-rich blood. This means they can't work well. These problems lead to the symptoms of heart failure. What causes heart failure? Heart failure may result from: Heart valve disease High blood pressure Active infections of the heart valves or heart muscle, such as endocarditis A past heart attack Coronary artery disease Disease of the heart muscle (cardiomyopathy) Heart problems that are present at (congenital heart defects) Heart rhythm problems (arrhythmias) Long-term (chronic) lung disease and pulmonary embolism A reaction to medicines, such as those used for chemotherapy Anemia and too much blood loss Thyroid disorders Diabetes Alcohol and drug abuse Certain viral infections What are the symptoms of heart failure? The most common symptoms of heart failure are: Shortness of breath while resting, exercising, or lying flat Weight gain from water retention Visible swelling of the legs, ankles, and feet from fluid buildup. Sometimes the belly (abdomen)may swell. Severe tiredness (fatigue) and weakness Loss of appetite, nausea, and belly pain Cough that doesn?t go away. It can cause blood-tinged or frothy sputum. The severity of the condition and symptoms depends on how much of the heart's pumping ability has been affected. The first step in managing heart failure symptoms is knowing your baselines or what?s normal for you. How much do you weigh? Are you gaining weight but eating the same amount? How much can you do before you feel short of breath? Do your socks and shoes fit comfortably? Knowing what?s normal for you will help you see when symptoms are getting worse. Once you know your baselines, watchfor changes daily. The symptoms of heart failure may look like other health problems. Always see your healthcare provider for a diagnosis. How is heart failure diagnosed? Your healthcare provider will ask about your health history. They will give you a physical exam. You may need tests, such as: Chest X-ray. This test makes images of internal tissues, bones, and organs on film. This test shows the size and shape of your heart. Fluid in the lungs will also show up on X-ray. Echocardiogram. This test is also called an echo. It uses sound waves to assess the motion of the heart?s chambers and valves. The sound waves make an image on the screen as an ultrasound transducer is passed over the heart. This shows how well the heart pumps and relaxes. It also shows the thickness of the heart márquez, and if the heart is enlarged. It can assess heart valve function and bloodflow as well. It is one of the most useful tests because it shows a lot of information about the heart?s function. And it can help guide treatment choices. Electrocardiogram. This test records the electrical activity of the heart. It shows abnormal rhythms. It can sometimes find heart muscle damage. BNP testing. B-type natriuretic peptide (BNP) is a hormone released from the ventricles that occurs with heart failure. BNP levels are useful in the quick assessment of heart failure. The higher the BNP levels, the worse the heart failure. BNP is measured from a blood sample. Cardiac MRI. This test uses a magnetic field to make images of the heart and its nearby tissues.It can assess how the heart muscle and valves are working. How is heart failure treated? The cause of heart failure will guide the treatment plan. If heart failure is caused by a valve problem or coronary heart disease, then you may need a procedure. This may be a percutaneous coronary intervention. Or it may be surgery. If heart failure is caused by a problem, such as anemia or an infe ction, you may need medicine to treat this problem. Some causes of heart failure are reversible or short-term, such as an acute infection. For many causes of heart failure there is no cure. But many forms of treatment can help with symptoms. They are listed below. Lifestyle changes These healthy habits may help with heart failure: Controlling blood pressure Controlling blood sugar if you have diabetes Quitting smoking Maintaining a healthy weight. Losing weight, if needed Regular exercise Limiting salt and fat in your diet Not drinking alcohol or using illicit drugs Getting enough rest Reducing stress Other important lifestyle habits include getting vaccines, such as for the flu and pneumococcal pneumonia. If you have sleep problems, getting a sleep study can help find out what?s causing them. You may need to wear a C-PAP mask while you sleep. This will make sure you get enough oxygen. Too little oxygen can put stress on your heart. Medicines Many types of medicines are available for heart failure. They include: Angiotensin converting enzyme (TORI) inhibitors. These lower the pressure inside the blood vessels. This reduces the pressure that the heart has to pump against. They can also help the heart have better pumping ability over time. Angiotensin receptor blockers (ARB). Some people get a cough and need to stop taking TORI inhibitors. If that happens, an ARB may work for you. These help relax blood vessels and reduce stress on the heart. Angiotensin receptor-neprilysin inhibitors (ARNIs). This medicine combines an ARB and a neprilysin inhibitor. This can help the heart as noted above. And it can promote salt and water loss. This medicine is preferred over TORI inhibitors and ARBs alone. Diuretics. These reduce the amount of fluid in the body. They are among the most important medicines in helping control fluid buildup in the body. Beta-blockers. These reduce the heart?s tendency to beat faster. They can also help the heart pump better over time. Aldosterone blockers. These block the effects of the hormone aldosterone. This hormone causes sodium and water retention. Vasodilators. These include hydralazine and nitroglycerin. These widen (dilate) the blood vessels. They reduce the workload on the heart. Statins or PCSK9 inhibitors. These lower the amount of bad cholesterol in your blood. They are not used to treat heart failure. But you may take one if you have high cholesterol. Or you may take one if you have had a past heart attack and are at risk for heart failure. People who have inherited forms of high cholesterol (familial hypercholesterolemia) may get help from PCSK9 inhibitors. These medicines lower cholesterol. Sodium-glucose cotransporter-2 (SGLT2) inhibitors. They block your kidneys from reabsorbing sugar from the blood. This helps your body get rid of extra salt and water and so lowers your blood pressure. Lowering your blood pressure eases the strain on your heart. Digitalis. This medicine helps the heart beat stronger. It may help with controlling heart rate if there is an abnormal heart rhythm. Antiarrhythmics. These help keep normal heart rhythm. Sinus node I-f channel morales. This may be used to lower your heart rate. It may result in lessstress on your heart. This medicine is reserved for people who still have high resting heart rates despite use of beta blockers. Heart procedures These include opening blocked arteries in the heart. This brings back blood flow to the heart muscle. It helps the ventricles squeeze as they should. The procedure can be done in the cardiac catheterization lab. It uses balloons to push plaque and blood clots out of the artery. It also uses stents to keep the artery open. This can also be done by bypassing blockages during surgery (coronary artery bypass surgery). Heart valve repair or replacement In some cases, medicines can?t help heart failure caused by heart valves that are narrowed (stenosed) or leak (regurgitant). The heart valve can be repaired or replaced. This can be done as an open-heart procedure. Or it can be done by going through a small tube (catheter) that is put into an artery or vein. Pacemaker If your heart failure has also damaged your heart?s electrical wiring system, a pacemaker can be implanted. This is done to restore normal heart rate and regularity. A cardiac resynchronizing pacemaker is used when one of the natural heart wires is damaged. This is often the wire located in the left ventricle. These pacemakers use implanted left and right sided wires to restore normal timing of the heart contraction in order to improve heart function. ICD (implantable cardioverter defibrillator) When the heart muscle is damaged, dangerous heart circuits can form in the heart muscle. This leadsto heart rhythms that can cause . An ICD is implanted in the body to sense and treat these cardiac arrest rhythms. It does this by overdrive pacing the heart rhythm. Or it sends an energy shock to the heart. VAD (ventricular assist device) This device is put in the chest during a surgery. It connects to an outside motor. The motor helps pump blood from the heart to the rest of the body. VADs can allow people with advanced heart failureto improve their overall symptoms and to walk more. This can be used as a long-term treatment. Or it can be used while someone waits for a donor heart for a transplant. Heart transplant In some cases, the diseased heart must be replaced with a healthy one from a donor. Talk with your healthcare providers about the risks, benefits, and possible side effects of all treatments. What are possible complications of heart failure? Complications of heart failure include: Fluid buildup in the lungs (pulmonary edema) Kidney and liver failure Stroke Abnormal heart rhythms How daily issues affect your health Many things in your daily life impact your health. This can include transportation, money problems,housing, access to food, and [facility]. If you can?t get to medical appointments, you may not receive the care you need. When money is tight, it may be difficult to pay for medicines. And living farfrom a 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 can make it hard to buy healthy food. If you have concerns in any of these or other areas, talk with your healthcare team. They may know of local resources to assist you. Or they may have a staff person who can help. Walton points about heart failure When you have heart failure, the heart can?t pump as well as it should. Heart failure may result from health problems that affect the heart, such as high blood pressure, coronary artery disease, and heart attack. Some common symptoms are shortness of breath, weight gain, and visible swelling of the legs and ankles. A chest X-ray can help diagnose lung congestion. Treatment varies based on the cause of heart failure. Most people are advised to make certain lifestyle changes and to take certain medicines, often for life. Procedures, such as coronary intervention and surgery, may be needed. Next steps Tips to help you get the most from a visit to your healthcare provider: Know the reason for your visit and what you want to happen. Before your visit, write down questions you want answered. Bring someone with you to help you ask questions and remember what your provider tells you. At the visit, write down the name of a new diagnosis, and any new medicines, treatments, or tests. Also write down any new instructions your provider gives you. Know why a new medicine or treatment is prescribed, and how it will help you. Also know what theside effects are. Ask if your condition can be treated in other ways. Know why a test or procedure is recommended and what the results could mean. Know what to expect if you do not take the medicine or have the test or procedure. If you have a follow-up appointment, write down the date, time, and purpose for that visit. Know how you can contact your healthcare provider if you have questions, especially after officehours or on weekends. Last Reviewed Date: 08/20/202219998953-1236 [employer]. All rights reserved. This information is not intended as a substitute for professional medical care. Always follow your healthcare professional's instructions. * Pt Handout (on AVS) - Nicolasa Mendieta RN - 06/01/2023 1:08 PM EDT [id number] Discharge Instructions for High Blood Pressure (Hypertension) You have been diagnosed with high blood pressure. This is known as hypertension. This means the force of blood against your artery márquez is too strong. It means your heart is working hard to move blood. High blood pressure usually has no symptoms. But over time, it can cause serious health problems. High blood pressure raises your risk for these problems: Heart attack Stroke Heart disease Heart failure Kidney disease Vision loss With help from your healthcare provider, you can manage your blood pressure and protect your health. Blood pressure measurements are given as 2 numbers. Systolic blood pressure is the upper number. This is the pressure when the heart contracts or pumps. Diastolic blood pressure is the lower number. This is the pressure when the heart relaxes between beats. Blood pressure is grouped like this: Normal blood pressure. This is systolic of less than 120 and diastolic of less than 80 (120/80) at rest Elevated blood pressure. This is systolic of 120 to 129 and diastolic less than 80 at rest Stage 1 high blood pressure. This is systolic is 130 to 139 or diastolic between 80 to 89 at rest Stage 2 high blood pressure. This is when systolic is 140 or higher or the diastolic is 90 or higher at rest Taking medicine Learn to measure your own blood pressure. Keep a record of your results. Ask your healthcare provider what numbers mean that you need medical care. Take your blood pressure medicine exactly as directed. Don?t skip doses. Missing doses can causeyour blood pressure to get out of control. Ask your healthcare provider what to do if you miss a dose. Don't take medicines that contain heart stimulants. This includes [id number] medicines. Check for warnings about high blood pressure on the label. Ask the pharmacist before buying a medicineyou haven't used before. Check with your healthcare provider before taking a decongestant. This includes medicines with pseudoephedrine or phenylephrine on the label. Ask the pharmacist if you are not sure. These can makehigh blood pressure worse. If you take medicine to have sex, talk to your healthcare provider. Taking these medicines with a type of blood pressure medicine called nitrates can be dangerous. This can drop your blood pressure too low. Lifestyle changes Keep a healthy weight. Get help to lose any extra pounds. Meeting with a dietitian can help you make diet changes to help with weight loss. Cut back on salt. To do this: o Limit canned, dried, packaged, and fast foods. o Don?t add salt to your food at the table. o Season foods with herbs instead of salt when you cook. o Ask for no added salt when you eat out. o Have no more than 1,500 mg a day of sodium. You can make a positive change by cutting back to even 2,300 mg of sodium a day. Read all food labels to see how much sodium they have. Follow the DASH eating plan. DASH stands for Dietary Approaches to Stop Hypertension. This plan advises a way to eat for healthy blood pressure. The diet includes vegetables, fruits, whole grains,and other healthy foods. Eat food rich in potassium. Begin an exercise program. Talk with your healthcare provider before you get started. Work up toaerobic exercise 3 to 4 times a week for an average of 40 minutes at a time to lower blood pressure. Even simple activities can help blood pressure. These include walking or gardening. If you smoke, work to stop. Enroll in a stop-smoking program. This will improve your chance of success. Ask your healthcare provider about programs and medicines to help you stop smoking. Limit drinks with caffeine to 2 per day. This includes such as coffee, black or green tea, and cola. Never take stimulants such as amphetamines or cocaine. These drugs can be deadly for a person with high blood pressure. Work to lessen your stress. You can learn ways to manage stress. Limit how much alcohol you drink. This means no more than 1 drink a day for women and 2 drinks aday for men. Follow-up care Make a follow-up appointment as directed. When to call your healthcare provider Call your healthcare provider right away if you have any of these: Moderate headache Extreme drowsiness Dizziness or fainting Pulsating or rushing sound in your ears Unexplained nosebleed Blood pressure measured at home that is higher than 180/110 or as directed by your healthcare provider Call 911 Call 911 right away if you have any of these symptoms: Chest pain or shortness of breath Severe headache Weakness, tingling, or numbness of your face, arms, or legs (especially on 1 side of the body) Change in vision Confusion, trouble speaking, or trouble understanding speech Last Reviewed Date: 12/21/202019994306-8966 [employer]. All rights reserved. This information is not intended as a substitute for professional medical care. Always follow your healthcare professional's instructions. * Care Plan - Natasha Farah RN - 06/01/2023 5:25 AM EDT Clinical Goal(s): Patient BP will be controlled this shift (05/31/231927) Possible barriers to meeting goal(s)/advancing plan of care: acuity of illness Stability of the patient: Moderately stable - low risk of patient condition declining or worsening Summary regarding today's goal(s): Not Met: Patient BP was not controlled this shift Recommendations: continue to monitor, PRN hydralazine * Ancillary Progress Note - Gal Johns RVT - 05/31/2023 8:52 AM EDT Bilateral legs: no evidence of DVT. Bakers cyst in left popliteal fossa 5.4 x 2.66 x 1.60cm * Pt Handout (on AVS) - Neema Baum, RN - 05/31/2023 3:41 AM EDT Images from the original note were not included. [id number] Potassium Chloride Extended Release Oral Tablet Brands: K-Tab, Klor-Con Uses This medicine is used for the following purposes: low potassium levels potassium replacement Instructions Swallow the medicine without crushing or chewing it. Take the medicine with a meal and some liquid. Sit or stand upright for 10 minutes after taking the medicine. Do not lie down. This medicine will work best if you take it at about the same time every day. Keep the medicine at room temperature. Avoid heat and direct light. Talk to your doctor before eating foods with large amounts of potassium. Potassium is often found in salt substitutes. Your doctor may want you to reduce the amount of these foods. It is important that you keep taking each dose of this medicine on time even if you are feeling well. If you forget to take a dose on time, take it as soon as you remember. If it is almost time for thenext dose, do not take the missed dose. Return to your normal schedule. Do not take 2 doses at one time. Tell your doctor and pharmacist about all your medicines. Include prescription and ximl-sol-ydhnizkmdyovkdox, vitamins, and herbal medicines. It is very important that you follow your doctor's instructions for all blood tests. Cautions Tell your doctor and pharmacist if you ever had an allergic reaction to a medicine. Do not use the medication any more than instructed. Tell the doctor or pharmacist if you are , planning to be , or . Do not start or stop any other medicines without first speaking to your doctor or pharmacist. Do not share this medicine with anyone who has not been prescribed this medicine. Side Effects The following is a list of some common side effects from this medicine. Please speak with your doctor about what you should do if you experience these or other side effects. diarrhea nausea and vomiting stomach upset or abdominal pain If you have any of the following side effects, you may be getting too much medicine. Please contactyour doctor to let them know about these side effects. fast or irregular heart beats A few people may have an allergic reaction to this medicine. Symptoms can include difficulty breathing, skin rash, itching, swelling, or severe dizziness. If you notice any of these symptoms, seek medical help quickly. Extra Please speak with your doctor, nurse, or pharmacist if you have any questions about this medicine. [email or web address] IMPORTANT NOTE: This document tells you briefly how to take your medicine, but it does not tell youall there is to know about it. Your doctor or pharmacist may give you other documents about your medicine. Please talk to them if you have any questions. Always follow their advice. There is a more complete description of this medicine available in [place]. Scan this code on your smartphone or tablet or use the web address below. You can also ask your pharmacist for a printout. If you have any questions, please ask your pharmacist. The display and use of this drug information is subject to Terms of Use. Copyright(c) 2022 [employer]. 8445-9839 [employer]. All rights reserved. This information is not intended as a substitute for professional medical care. Always follow your healthcare professional's instructions. * ED Speeder Hand Note - Roque Stuart RN - 05/31/2023 2:34 AM EDT Did call and give verbal report to 3B for pts transfer to that unit. * ED Speeder Hand Note - Roque Stuart RN - 05/31/2023 2:31 AM EDT Late entry for 0145 - Pt requested Clonazepam 0.5 mg PRN now. Pt states that at home her lorazepam was discontinued and she was started on Clonazepam 0.5 mg PO BID PRN anxiety. Did make Dr. Engle aware of pts request. Provider did order med, and this nurse did admin per pt request. * ED Speeder Hand Note - Roque Stuart RN - 05/31/2023 1:41 AM EDT This nurse talked to provider about whether or not we should now admin Lovenox injection d/t CT head being resulted. Provider had a discussion with pt about admin now vs waiting until after she wouldhave an MRI. Pt voiced that she does not want the med at this time. * Medical Necessity - Keshawn Cooper, Utilization Review Staff - 05/31/2023 1:17 AM EDT AdmissionCare Guideline: General Observation, Observation Based on the indications selected for the patient, the bed status of Observation was determined to be MET The following indications were selected as present at the time of evaluation of the patient: - Clinical care (eg, testing, monitoring, or treatment) needed beyond the usual emergency department time frame (eg, 3 to 4 hours) - Clinical care needed is not appropriate for a lower level of care (ie, discharge to outpatient setting not appropriate). - Patient has clinical condition for which observation care is needed, as indicated by 1 or more ofthe following: - Musculoskeletal condition or finding (eg, injury, dislocation, fracture, suspected joint or bone infection, trauma, exacerbation of rheumatologic disease, suspected rhabdomyolysis, suspected compartment syndrome, frostbite) Additional Information: bilateral lower leg edema AdmissionCare documentation entered by: Keshawn Cooper [facility] [employer], 27th edition, Copyright 2022 [facility] [employer] All Rights Reserved. [id number] Solely for purpose of utilization review and payment; not a diagnostic tool * ED Speeder Hand Note - Roque Stuart RN - 05/30/2023 11:45 PM EDT Pt has rang several times very anxious and stating repeatedly that she is "getting no answers". Pt is fixated on the POC, although provider has been in on several occasions to discuss same with her and her . * ED Speeder Hand Note - Madiha Del Cid RN - 05/30/2023 10:57 PM EDT This rn noted pt pupils were unequal , r > than l , dr engle aware * ED Speeder Hand Note - Genevieve Massey RN - 05/30/2023 6:55 PM EDT Pt c/o bilateral lower leg edema, no sob, no cp, no increased salt in diet. Pt taking medication asprescribed, she is taking lisinopril and metoprolol. She states that her bp has been high lately aswell. Pt resting quietly on stretcher, call marie within reach, family at bedside. documented in this encounter Plan of Treatment Upcoming Encounters Date Type Department Care Team (Late st Contact Info) Description 06/06/2023 1:00 PM EDT Office Visit Cardiology, [facility] [address] [place] [address] [address], [address] [place] [id number] Scheduled Referrals Name Type Priority Associated Diagnoses Orde r Schedule CARDIOLOGY REFERRAL OP Referral Within 10 days (routine) Edema leg Chest pain Heart failure (HCC) Uncontrolled hypertension Hypokalemia Ordered: 06/01/2023 Health Maintenance Due Date Last Done Comments [...] Procedure Name Priority Date/Time Associated Diagnosis Comments BASIC METABOLIC PANEL Routine 06/01/2023 4:19 AM EDT CBC Routine 06/01/2023 4:19 AM EDT ECHO, COMPLETE (2D), TRANS-THORACIC Routine 05/31/2023 2:38 PM EDT Heart failure (HCC) MRI BRAIN WITHOUT CONTRAST Routine 05/31/2023 9:48 AM EDT VASC DUPLEX VENOUS LE BILAT Routine 05/31/2023 8:51 AM EDT BASIC METABOLIC PANEL Routine 05/31/2023 5:54 AM EDT CBC Routine 05/31/2023 5:54 AM EDT RESPIRATORY PATHOGEN PANEL, PCR STAT 05/31/2023 1:[address] HEAD/BRAIN WO CONTRAST STAT 05/30/2023 11:01 PM EDT TROPONIN T, HIGH SENSITIVITY STAT 05/30/2023 8:28 PM EDT BNP (NT-PROBNP) STAT 05/30/2023 8:28 PM EDT COMPREHENSIVE METABOLIC PANEL STAT 05/30/2023 8:28 PM EDT D-DIMER STAT 05/30/2023 8:28 PM EDT PHOSPHORUS STAT 05/30/2023 8:28 PM EDT ETHANOL, MEDICAL STAT 05/30/2023 8:28 PM EDT T4, FREE STAT 05/30/2023 8:28 PM EDT MAGNESIUM STAT 05/30/2023 8:28 PM EDT DIFFERENTIAL, AUTOMATED STAT 05/30/2023 8:27 PM EDT CBC STAT 05/30/2023 8:27 PM EDT CBC STAT 05/30/2023 8:27 PM EDT XR CHEST 2 VIEWS STAT 05/30/2023 8:22 PM EDT XR FOOT 3 OR MORE VIEWS STAT 05/30/2023 8:22 PM EDT XR ANKLE 3 OR MORE VIEWS STAT 05/30/2023 8:22 PM EDT documented in this encounter Results * (ABNORMAL) BASIC METABOLIC PANEL (06/01/2023 4:19 AM EDT) BUN 13 6 - 20 mg/dL 06/01/2023 5:07 AM EDT [facility] Creatinine 0.6 0.5 - 1.0 mg/dL 06/01/2023 5:07 AM EDT [facility] Estimated Glomerular Filtration Rate 89 >=60 mL/min 06/01/2023 5:07 AM EDT [facility] Comment:eGFR is calculated b ased on the CKD-EPI 2020 equation Sodium 141 135 - 146 mmol/L 06/01/2023 5:07 AM EDT [facility] Potassium 3.4(L) 3.5 - 5.1 mmol/L 06/01/2023 5:07 AM EDT [facility] Chloride 105 98 - 107 mmol/L 06/01/2023 5:07 AM EDT [facility] CO2 25 22 - 32 mmol/L 06/01/2023 5:07 AM EDT LABORATORY [facility] Anion Gap 11 7 - 15 mmol/L 06/01/2023 5:07 AM EDT LABORATORY [facility] Glucose 86 70 - 120 mg/dL 06/01/2023 5:07 AM EDT LABORATORY GL Calcium 9.1 8.4 - 10.2 mg/dL 06/01/2023 5:07 AM EDT LABORATORY [facility] Blood Venous blood specimen / Unknown Venipuncture / Unknown 06/01/2023 4:19 AM EDT 06/01/2023 4:41 AM EDT Kulwinder Quezada PA-C LAB BLOOD ORDERABLES Performing Organization Address City/State/[facility] Co de Phone Number LABORATORY [address] [address] * CBC (06/01/2023 4:19 AM EDT) WBC 5.61 4.00 - 10.80 K/uL 06/01/2023 4:46 AM EDT LABORATORY [facility] RBC 4.05 3.85 - 5.15 M/uL 06/01/2023 4:46 AM EDT LABORATORY [facility] HGB 12.4 12.0 - 15.3 g/dL 06/01/2023 4:46 AM EDT LABORATORY [facility] HCT 37.1 36.0 - 45.2 % 06/01/2023 4:46 AM EDT LABORATORY [facility] MCV 91.6 81.5 - 97.5 fL 06/01/2023 4:46 AM EDT LABORATORY [facility] MCH 30.6 27.0 - 34.0 pg 06/01/2023 4:46 AM EDT LABORATORY [facility] MCHC 33.4 32.0 - 36.0 g/dL 06/01/2023 4:46 AM EDT LABORATORY [facility] RDW 14.9 11.5 - 15.5 % 06/01/2023 4:46 AM EDT LABORATORY [facility] PLT 249 140 - 400 K/uL 06/01/2023 4:46 AM EDT LABORATORY [facility] MPV 10.5 6.6 - 11.1 fL 06/01/2023 4:46 AM EDT LABORATORY [facility] nRBCs 0 <=0 /100 WBCs 06/01/2023 4:46 AM EDT LABORATORY [facility] Blood Venous blood specimen / Unknown Venipuncture / Unknown 06/01/2023 4:19 AM EDT 06/01/2023 4:41 AM EDT Kulwinder Quezada PA-C LAB BLOOD ORDERABLES LABORATORY [address] [address] * ECHO, COMPLETE (2D), TRANS-THORACIC (05/31/2023 2:38 PM EDT) LEFT VENTRICULAR EJECTION FRACTION 63 % [facility] 05/31/2023 2:04 PM EDT Kulwinder Quezada PA-C ECHOCARDIOLOGY Performing Organization Address City/[facility]/ZIP Co de Phone Number [id number] * MRI BRAIN WITHOUT CONTRAST (05/31/2023 9:48 AM EDT) Anatomical Region Laterality Modality Neuro, Head Magnetic Resonan ce 05/31/2023 10:1 1 AM EDT Impressions 05/31/2023 10:08 AM EDT IMPRESSION 1. No acute intracranial pathology, space-occupying mass, or hydrocephalus. 2. Global cerebral volume loss with chronic white matter microvascular ischemic changes. 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 FINDINGS There is mild, global cerebral volume loss with proportionate sulcal prominence. Patchy foci of T2 FLAIR signal hyperintensity are scattered in the bilateral periventricular and subcortical cerebral white matter, most compatible with chronic microvascular ischemic disease. Diffusion-weighted sequence shows no restricted diffusion suspicious for acute ischemia. No territorial infarcts are seen. No space occupying mass, brain edema, midline shift, hydrocephalus, or extra- axial fluid collections are demonstrated. Susceptibility weighted images show no signal suspicious for hemorrhage. The brainstem, pituitary gland, corpus callosum, pineal region, cerebellum, and craniocervical junction are within normal limits. Non-dedicated images through the orbits reveal no gross orbital pathology. 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 FINDINGS There is mild, global cerebral volume loss with proportionate sulcalprominence. Patchy foci of T2 FLAIR signal hyperintensity are scatteredin the bilateral periventricular and subcortical cerebral white matter,most compatible with chronic microvascular ischemic disease.Diffusion-weighted sequence shows no restricted diffusion suspicious foracute ischemia. No territorial infarcts are seen. No space occupying mass, brain edema, midline shift, hydrocephalus, orextra- axial fluid collections are demonstrated. Susceptibility weightedimages show no signal suspicious for hemorrhage. The brainstem, pituitary gland, corpus callosum, pineal region,cerebellum, and craniocervical junction are within normal limits.Non-dedicated images through the orbits reveal no gross orbitalpathology. IMPRESSION IMPRESSION 1. No acute intracranial pathology, space-occupying mass, orhydrocephalus. 2. Global cerebral volume loss with chronic white matter microvascularischemic changes. Kulwinder Quezada PA-C RAD MRI-MRA * VASC DUPLEX VENOUS LE BILAT (05/31/2023 8:51 AM EDT) Anatomical Region Laterality Modality Lower Extremity, Vascular Ultras ound Impressions 05/31/2023 10:14 AM EDT : Right lower extremity with no evidence of acute deep venous thrombosis. Left lower extremity with no evidence of acute deep venous thrombosis. A non-vascular, cystic mass is demonstrated in the left popliteal fossa with sonographic features consistent with a Purvis's cyst, measuring 5.4 cm by 2.66 cm by 1.60cm. Narrative 05/31/2023 10:14 AM EDT VASCULAR LAB RESULTS DATE OF EXAM: 05/31/23 PRESENTING CONDITIONS: Generalized Edema Immediately before proceeding with the vascular lab procedure reported below, the identity of the patient, the correct exam and the correct procedural site were verified. PHYSICIAN REPORT: Lower Extremity Venous Duplex Examination Color flow Doppler, spectral analysis, and transducer compression techniques were applied during this ultrasound image examination. RIGHT LOWER EXTREMITY On duplex examination, the right common femoral vein, the sapheno-femoral junction, the femoral vein in the thigh and popliteal vein are all free of internal echoes and demonstrate normal transducer compressibility during fontana scale imaging and normal respiratory and augmentation response during Doppler interrogation. The posterior tibial veins and peroneal veins demonstrate no evidence of thrombosis. The contralateral common femoral vein is patent and free of internal echoes. LEFT LOWER EXTREMITY On duplex examination, the left common femoral vein, the sapheno-femoral junction, the femoral vein in the thigh, and popliteal vein are all free of internal echoes and demonstrate normal transducer compressibility during fontana scale imaging and normal respiratory and augmentation response during Doppler interrogation. The posterior tibial veins and peroneal veins demonstrate no evidence of thrombosis. The contralateral common femoral vein is patent and free of internal echoes. Kulwinder Quezada PA-C RAD VASCULAR * (ABNORMAL) BASIC METABOLIC PANEL (05/31/2023 5:54 AM EDT) BUN 13 6 - 20 mg/dL 05/31/2023 6:58 AM EDT [facility] Creatinine 0.6 0.5 - 1.0 mg/dL 05/31/2023 6:58 AM EDT [facility] Estimated Glomerular Filtration Rate 89 >=60 mL/min 05/31/2023 6:58 AM EDT [facility] Comment:eGFR is calculated b ased on the CKD-EPI 2020 equation Sodium 146 135 - 146 mmol/L 05/31/2023 6:58 AM EDT [facility] Potassium 3.5 3.5 - 5.1 mmol/L 05/31/2023 6:58 AM EDT [facility] Chloride 108(H) 98 - 107 mmol/L 05/31/2023 6:58 AM EDT [facility] CO2 27 22 - 32 mmol/L 05/31/2023 6:58 AM EDT [facility] Anion Gap 11 7 - 15 mmol/L 05/31/2023 6:58 AM EDT LABORATORY [facility] Glucose 79 70 - 120 mg/dL 05/31/2023 6:58 AM EDT LABORATORY [facility] Calcium 8.6 8.4 - 10.2 mg/dL 05/31/2023 6:58 AM EDT LAB[facility]ATORY [facility] Blood Venous blood specimen / Unknown Venipuncture / Unknown 05/31/2023 5:54 AM EDT 05/31/2023 6:27 AM EDT Kulwinder Quezada PA-C LAB BLOOD ORDERABLES LABORATORY [facility] [address] [place] [address] * CBC (05/31/2023 5:54 AM EDT) WBC 8.00 4.00 - 10.80 K/uL 05/31/2023 6:38 AM EDT LABORATORY [facility] RBC 4.04 3.85 - 5.15 M/uL 05/31/2023 6:38 AM EDT LABORATORY [facility] HGB 12.0 12.0 - 15.3 g/dL 05/31/2023 6:38 AM EDT LABORATORY [facility] HCT 37.1 36.0 - 45.2 % 05/31/2023 6:38 AM EDT LABORATORY [facility] MCV 91.8 81.5 - 97.5 fL 05/31/2023 6:38 AM EDT LABORATORY [facility] MCH 29.7 27.0 - 34.0 pg 05/31/2023 6:38 AM EDT LABORATORY [facility] MCHC 32.3 32.0 - 36.0 g/dL 05/31/2023 6:38 AM EDT LABORATORY [facility] RDW 14.9 11.5 - 15.5 % 05/31/2023 6:38 AM EDT LABORATORY [facility] PLT 273 140 - 400 K/uL 05/31/2023 6:38 AM EDT LABORATORY [facility] MPV 10.7 6.6 - 11.1 fL 05/31/2023 6:38 AM EDT LABORATORY [facility] nRBCs 0 <=0 /100 WBCs 05/31/2023 6:38 AM EDT LAB[facility]ATORY [facility] Blood Venous blood specimen / Unknown Venipuncture / Unknown 05/31/2023 5:54 AM EDT 05/31/2023 6:27 AM EDT Kulwinder Quezada PA-C LAB BLOOD ORDERABLES LABORATORY [address] [address] * RESPIRATORY PATHOGEN PANEL, PCR (05/31/2023 1:13 AM EDT) Pathologist [facility] Adenovirus by PCR Negative Negative 2:04 AM EDT LABORATORY [facility] Coronavirus 229E by PCR Negative Negative 05/31/2023 2:04 AM EDT LABORATORY [facility] Coronavirus HKU1 by PCR Negative Negative 05/31/2023 2:04 AM EDT LAB[facility]ORY [facility] Coronavirus NL63 by PCR Negative Negative 05/31/2023 2:04 AM EDT LAB[facility]ORY [facility] Coronavirus OC43 by PCR Negative Negative 05/31/2023 2:04 AM EDT LAB[facility]ATORY [facility] Coronavirus SARS-CoV-2 by PCR Negative Negative 05/31/2023 2:04 AM EDT LABOR[facility]ORY [facility] Human Metapneumovirus by PCR Negative Negative 05/31/2023 2:04 AM EDT LAB[facility]ORY [facility] Rhinovirus/Enterovi hugo by PCR Negative Negative 05/31/2023 2:04 AM EDT LAB[facility]ORY [facility] Influenza A Virus by PCR Negative Negative 05/31/2023 2:04 AM EDT LAB[facility]ORY [facility] Influenza B Virus by PCR Negative Negative 05/31/2023 2:04 AM EDT LAB[facility] Parainfluenza Virus 1 by PCR Negative Negative 05/31/2023 2:04 AM EDT LAB[facility]ORY [facility] Parainfluenza Virus 2 by PCR Negative Negative 05/31/2023 2:04 AM EDT LABOR[facility]ORY [facility] Parainfluenza Virus 3 by PCR Negative Negative 05/31/2023 2:04 AM EDT LAB[facility]ORY [facility] Parainfluenza Virus 4 by PCR Negative Negative 05/31/2023 2:04 AM EDT LABORATORY [facility] Respiratory Syncytial Virus by PCR Negative Negative 05/31/2023 2:04 AM EDT LABORATORY [facility] Bordetella pertussis by PCR Negative Negative 05/31/2023 2:04 AM EDT LABORATORY [facility] Chlamydia pneumoniae by PCR Negative Negative 05/31/2023 2:04 AM EDT LAB[facility]ATORY [facility] Mycoplasma pneumoniae by PCR Negative Negative 05/31/2023 2:04 AM EDT LABORATORY [facility] Bordetella parapertussis by PCR Negative Negative 05/31/2023 2:04 AM EDT LABORATORY [facility] Comment: The primers that detect Rhinovirus may cross react with some Enterorviruses. The validation of bronchial specimens, tracheal aspirates, and throats for this assay was developed and performance characteristics determined by [employer]. The validation of alternate specimen types has not been cleared or approved by the U.S. Food and Drug Administration (FDA). It has been determined that such clearance or approval is not necessary. Upper Respiratory Mid-turbinate nasal swab / Unknown Non-blood Collection / Unknown 05/31/2023 1:13 AM EDT 05/31/2023 1:17 AM EDT Vinayak Engle MD LAB MICRO - GEN ERAL ORDERABLES LABORATORY [address] [address] * CT HEAD/BRAIN WO CONTRAST (05/30/2023 11:01 PM EDT) Anatomical Region Laterality Modality Head Computed Tomogra phy 05/30/2023 10:5 4 PM EDT Impressions 05/30/2023 11:44 PM EDT IMPRESSION: 1. No acute intracranial pathology. 2. Mild age-related atrophy. THIS DOCUMENT HAS BEEN ELECTRONICALLY SIGNED BY DO Shoshana SHAH 05/30/2023 11:44 PM EDT PROCEDURE INFORMATION: Exam: CT Head Without Contrast Exam date and time: 05/30/2023 10:54 PM Age: 83 years old Clinical indication: Other: Abnormal pupils; Additional info: Asymmetric pupil size TECHNIQUE: Imaging protocol: Computed tomography of the head without contrast. Radiation optimization: All CT scans at this facility use at least one of these dose optimization techniques: automated exposure control; mA and/or kV adjustment per patient size (includes targeted exams where dose is matched to clinical indication); or iterative reconstruction. COMPARISON: No relevant prior studies available. FINDINGS: Brain: There is no acute hemorrhage or infarct. Normal fontana-white differentiation is demonstrated. Cerebral ventricles: There is mild ventricular dilatation and widening of the sulci compatible with the patient's age. Pituitary gland and sella: Normal. Paranasal sinuses: The visualized sinuses are unremarkable. No fluid levels. Mastoid air cells: The visualized mastoid air cells are well aerated. Orbital cavities: Normal. Bones/joints: The bony calvarium is intact. Soft tissues: Unremarkable. Procedure Note Cb Wolf DO - 05/30/2023 PROCEDURE INFORMATION: Exam: CT Head Without Contrast Exam date and time: 05/30/2023 10:54 PM Age: 83 years old Clinical indication: Other: Abnormal pupils; Additional info: Asymmetricpupil size TECHNIQUE: Imaging protocol: Computed tomography of the head without contrast. Radiation optimization: All CT scans at this facility use at least one ofthese dose optimization techniques: automated exposure control; mA and/or kV adjustment per patient size (includes targeted exams where dose is matchedto clinical indication); or iterative reconstruction. COMPARISON: No relevant prior studies available. FINDINGS: Brain: There is no acute hemorrhage or infarct. Normal fontana-white differentiation is demonstrated. Cerebral ventricles: There is mild ventricular dilatation and widening ofthe sulci compatible with the patient's age. Pituitary gland and sella: Normal. Paranasal sinuses: The visualized sinuses are unremarkable. No fluidlevels. Mastoid air cells: The visualized mastoid air cells are well aerated. Orbital cavities: Normal. Bones/joints: The bony calvarium is intact. Soft tissues: Unremarkable. IMPRESSION IMPRESSION: 1. No acute intracranial pathology. 2. Mild age-related atrophy. THIS DOCUMENT HAS BEEN ELECTRONICALLY SIGNED BY CB WOLF DO Vinayak Engle MD RAD CT * T4, FREE (05/30/2023 8:28 PM EDT) T4, Free 1.1 0.9 - 1.7 ng/dL 05/30/2023 9:11 PM EDT LABORATORY GL Blood Venous blood specimen / Unknown Venipuncture / Unknown 05/30/2023 8:28 PM EDT 05/30/2023 8:40 PM EDT Vinayak Engle MD LAB BLOOD ORDER JONE LABORATORY [facility] [address] [place] [address] * (ABNORMAL) BNP, NT-PRO (05/30/2023 8:28 PM EDT) BNP, NT-Pro 892(H) <300 pg/mL 05/30/2023 9:11 PM EDT LABORATORY [facility] Blood Venous blood specimen / Unknown Venipuncture / Unknown 05/30/2023 8:28 PM EDT 05/30/2023 8:40 PM EDT Narrative LABORATORY [facility] - 05/30/2023 9:11 PM EDT Exclude Heart Failure: <300 pg/mL Diagnose Heart Failure: Age <50 yr: >450 pg/mL 50-75 yr: >900 pg/mL >75 yr: >1800 pg/mL GFR is 30-59 mL/min: >1200 pg/mL or Age-adjusted values GFR <30 mL/min: do not use, not reliable Prognostic threshold: 1000 pg/mL Vinayak Engle MD LAB BLOOD ORDER JONE Performing Organization Address City/[facility] Co de Phone Number LABORATORY [address] [address] * ETHANOL, MEDICAL (05/30/2023 8:28 PM EDT) ETHANOL, MEDICAL Negative Negative 05/30/2023 9:11 PM EDT LABORATORY [facility] Blood Venous blood specimen / Unknown Venipuncture / Unknown 05/30/2023 8:28 PM EDT 05/30/2023 8:40 PM EDT Vinayak Engle MD LAB BLOOD ORDER JONE LABORATORY [address] [id number] * TROPONIN T, HIGH SENSITIVITY (05/30/2023 8:28 PM EDT) Pathologist [facility] Troponin T, High Sensitivity 12 <=14 ng/L 05/30/2023 9:00 PM EDT LABORATORY [facility] Blood Venous blood specimen / Unknown Venipuncture / Unknown 05/30/2023 8:28 PM EDT 05/30/2023 8:40 PM EDT Vinayak Engle MD LAB BLOOD ORDER JOEN LABORATORY [address] [id number] * PHOSPHORUS (05/30/2023 8:28 PM EDT) Pathologist [facility] Phosphorus 3.5 2.5 - 4.8 mg/dL 05/30/2023 9:11 PM EDT LABORATORY [facility] Blood Venous blood specimen / Unknown Venipuncture / Unknown 05/30/2023 8:28 PM EDT 05/30/2023 8:40 PM EDT Vinayak Engle MD LAB BLOOD ORDER JONE LABORATORY [address] [address] * MAGNESIUM (05/30/2023 8:28 PM EDT) Pathologist [facility] Magnesium 2.2 1.5 - 2.6 mg/dL 05/30/2023 9:11 PM EDT LABORATORY [facility] Blood Venous blood specimen / Unknown Venipuncture / Unknown 05/30/2023 8:28 PM EDT 05/30/2023 8:40 PM EDT Vinayak Engle MD LAB BLOOD ORDER JONE LABORATORY [address] [address] * (ABNORMAL) COMPREHENSIVE METABOLIC PANEL (05/30/2023 8:28 PM EDT) BUN 16 6 - 20 mg/dL 05/30/2023 9:11 PM EDT LABORATORY [facility] Creatinine 0.7 0.5 - 1.0 mg/dL 05/30/2023 9:11 PM EDT LABORATORY [facility] Estimated Glomerular Filtration Rate 84 >=60 mL/min 05/30/2023 9:11 PM EDT LABORATORY [facility] Comment:eGFR is calculated b ased on the CKD-EPI 2020 equation Sodium 143 135 - 146 mmol/L 05/30/2023 9:11 PM EDT LABORATORY [facility] Potassium 3.4(L) 3.5 - 5.1 mmol/L 05/30/2023 9:11 PM EDT LABORATORY [facility] Chloride 106 98 - 107 mmol/L 05/30/2023 9:11 PM EDT LABORATORY [facility] CO2 26 22 - 32 mmol/L 05/30/2023 9:11 PM EDT LABORATORY [facility] Anion Gap 11 7 - 15 mmol/L 05/30/2023 9:11 PM EDT LABORATORY [facility] Glucose 96 70 - 120 mg/dL 05/30/2023 9:11 PM EDT LABORATORY [facility] Albumin 3.5(L) 3.8 - 5.0 g/dL 05/30/2023 9:11 PM EDT LABORATORY [facility] AST 19 10 - 35 U/L 05/30/2023 9:11 PM EDT LABORATORY [facility] Alkaline Phosphatase 64 35 - 130 U/L 05/30/2023 9:11 PM EDT LABORATORY [facility] Bilirubin, Total 0.2 <=1.2 mg/dL 05/30/2023 9:11 PM EDT LABORATORY [facility] Calcium 8.7 8.4 - 10.2 mg/dL 05/30/2023 9:11 PM EDT LABORATORY [facility] Protein 5.9(L) 6.0 - 8.3 g/dL 05/30/2023 9:11 PM EDT LABORATORY [facility] ALT 13 10 - 35 U/L 05/30/2023 9:11 PM EDT LABORATORY [facility] Blood Venous blood specimen / Unknown Venipuncture / Unknown 05/30/2023 8:28 PM EDT 05/30/2023 8:40 PM EDT Vinayak Engle MD LAB BLOOD ORDER JONE Performing Organization Address [facility] de Phone Number LABORATORY [facility] [address] [place] [address] * (ABNORMAL) D-DIMER (05/30/2023 8:28 PM EDT) D-Dimer 0.89(H) <0.50 ug/mL FEU 05/30/2023 8:59 PM EDT LABORATORY [facility] Blood Venous blood specimen / Unknown Venipuncture / Unknown 05/30/2023 8:28 PM EDT 05/30/2023 8:40 PM EDT Narrative LABORATORY [facility] - 05/30/2023 8:59 PM EDT Rheumatoid factor at a level above 50 IU/mL may lead to an overestimation of the D-dimer level. A normal D-dimer result (<0.50 ug/mL FEU) has a negative predictive value of approximately 95% for the exclusion of acute pulmonary embolism (PE) or deep vein thrombosis when there is low or moderate pretest PE probability. Increased D-dimer values are abnormal but do not indicate a specific disease state and the D-dimer increase does not definitively correlate with clinical severity of disease. Vinayak Engle MD LAB BLOOD ORDER JONE Performing Organization Address [facility] de Phone Number LABORATORY [facility] [address] [place] [address] * DIFFERENTIAL, AUTOMATED (05/30/2023 8:27 PM EDT) WBC 6.66 4.00 - 10.80 K/uL 05/30/2023 8:44 PM EDT LABORATORY [facility] Neutrophils % 52.8 40.0 - 75.0 % 05/30/2023 8:44 PM EDT LABORATORY [facility] Lymphocytes % 36.2 18.0 - 42.0 % 05/30/2023 8:44 PM EDT LABORATORY [facility] Monocytes % 7.7 1.0 - 11.0 % 05/30/2023 8:44 PM EDT LABORATORY GL Eosinophils % 2.3 0.0 - 6.0 % 05/30/2023 8:44 PM EDT LABORATORY GL Basophils % 0.8 0.0 - 2.0 % 05/30/2023 8:44 PM EDT LABORATORY GL Immature Granulocytes % 0.2 0.0 - 2.0 % 05/30/2023 8:44 PM EDT LABORATORY GL Absolute Neutrophils 3.53 1.80 - 7.70 K/uL 05/30/2023 8:44 PM EDT LABORATORY GL Absolute Lymphocytes 2.41 1.00 - 4.80 K/ul 05/30/2023 8:44 PM EDT LABORATORY [facility] Absolute Monocytes 0.51 0.00 - 1.10 K/uL 05/30/2023 8:44 PM EDT LABORATORY [facility] Absolute Eosinophils 0.15 0.00 - 0.70 K/uL 05/30/2023 8:44 PM EDT LABORATORY [facility] Absolute Basophils 0.05 0.00 - 0.20 K/uL 05/30/2023 8:44 PM EDT LABORATORY [facility] Absolute Immature Granulocytes 0.01 0.00 - 0.20 K/uL 05/30/2023 8:44 PM EDT LABORATORY [facility] Blood Venous blood specimen / Unknown Venipuncture / Unknown 05/30/2023 8:27 PM EDT 05/30/2023 8:40 PM EDT Vinayak Engle MD LAB BLOOD ORDER JONE LABORATORY [address] [address] * CBC (05/30/2023 8:27 PM EDT) [facility] WBC 6.66 4.00 - 10.80 K/uL 05/30/2023 8:44 PM EDT LABORATORY GL RBC 4.34 3.85 - 5.15 M/uL 05/30/2023 8:44 PM EDT LABORATORY [facility] HGB 12.9 12.0 - 15.3 g/dL 05/30/2023 8:44 PM EDT LABORATORY [facility] HCT 39.5 36.0 - 45.2 % 05/30/2023 8:44 PM EDT LABORATORY [facility] MCV 91.0 81.5 - 97.5 fL 05/30/2023 8:44 PM EDT LABORATORY [facility] MCH 29.7 27.0 - 34.0 pg 05/30/2023 8:44 PM EDT LABORATORY [facility] MCHC 32.7 32.0 - 36.0 g/dL 05/30/2023 8:44 PM EDT LABORATORY [facility] RDW 14.9 11.5 - 15.5 % 05/30/2023 8:44 PM EDT LABORATORY [facility] PLT 293 140 - 400 K/uL 05/30/2023 8:44 PM EDT LABORATORY [facility] MPV 10.6 6.6 - 11.1 fL 05/30/2023 8:44 PM EDT LABORATORY [facility] nRBCs 0 <=0 /100 WBCs 05/30/2023 8:44 PM EDT LABORATORY [facility] Blood Venous blood specimen / Unknown Venipuncture / Unknown 05/30/2023 8:27 PM EDT 05/30/2023 8:40 PM EDT Vinayak Engle MD LAB BLOOD ORDER JONE LABORATORY [facility] [address] [place] [address] * XR ANKLE 3 OR MORE VIEWS (05/30/2023 8:22 PM EDT) Anatomical Region Laterality Modality Ankle, Lower Extremity Digital R adiography 05/30/2023 7:53 PM EDT Impressions 05/30/2023 8:56 PM EDT IMPRESSION: No acute findings. THIS DOCUMENT HAS BEEN ELECTRONICALLY SIGNED BY KB HENSON MD Narrative 05/30/2023 8:56 PM EDT PROCEDURE INFORMATION: Exam: XR Left Ankle Exam date and time: 05/30/2023 7:53 PM Age: 83 years old Clinical indication: Pain; Ankle; Left; Additional info: Pain x 2 weeks TECHNIQUE: Imaging protocol: Radiologic exam of the left ankle. Views: 3 or more views. COMPARISON: DX XR FOOT 3 OR MORE VIEWS 05/30/2023 7:53 PM FINDINGS: Bones/joints: No acute bony abnormality. Generalized osteopenia with degenerative changes. Soft tissues: Mild soft tissue swelling. Procedure Note Kb Henson MD - 05/30/2023 PROCEDURE INFORMATION: Exam: XR Left Ankle Exam date and time: 05/30/2023 7:53 PM Age: 83 years old Clinical indication: Pain; Ankle; Left; Additional info: Pain x 2 weeks TECHNIQUE: Imaging protocol: Radiologic exam of the left ankle. Views: 3 or more views. COMPARISON: DX XR FOOT 3 OR MORE VIEWS 05/30/2023 7:53 PM FINDINGS: Bones/joints: No acute bony abnormality. Generalized osteopenia with degenerative changes. Soft tissues: Mild soft tissue swelling. IMPRESSION IMPRESSION: No acute findings. THIS DOCUMENT HAS BEEN ELECTRONICALLY SIGNED BY KB HENSON MD Vinayak Engle MD RADIOLOGY ([facility]) * XR FOOT 3 OR MORE VIEWS (05/30/2023 8:22 PM EDT) Anatomical Region Laterality Modality Foot, Lower Extremity Digital Ra diography 05/30/2023 7:53 PM EDT Impressions 05/30/2023 8:57 PM EDT IMPRESSION: No acute findings. THIS DOCUMENT HAS BEEN ELECTRONICALLY SIGNED BY KB HENSON MD [facility] 05/30/2023 8:57 PM EDT PROCEDURE INFORMATION: Exam: XR Left Foot Exam date and time: 05/30/2023 7:53 PM Age: 83 years old Clinical indication: Pain; Foot; Left; Additional info: Pain x 2 weeks TECHNIQUE: Imaging protocol: Radiologic exam of the left foot. Views: 3 or more views. COMPARISON: DX XR ANKLE 3 OR MORE VIEWS 05/30/2023 7:53 PM FINDINGS: Bones/joints: No acute bony abnormality. Generalized osteopenia with degenerative changes. Soft tissues: Normal. Procedure Note Kb Henson MD - 05/30/2023 PROCEDURE INFORMATION: Exam: XR Left Foot Exam date and time: 05/30/2023 7:53 PM Age: 83 years old Clinical indication: Pain; Foot; Left; Additional info: Pain x 2 weeks TECHNIQUE: Imaging protocol: Radiologic exam of the left foot. Views: 3 or more views. COMPARISON: DX XR ANKLE 3 OR MORE VIEWS 05/30/2023 7:53 PM FINDINGS: Bones/joints: No acute bony abnormality. Generalized osteopenia with degenerative changes. Soft tissues: Normal. IMPRESSION IMPRESSION: No acute findings. THIS DOCUMENT HAS BEEN ELECTRONICALLY SIGNED BY KB HENSON MD Vinayak Engle MD RADIOLOGY ([facility]) * XR CHEST 2 VIEWS (05/30/2023 8:22 PM EDT) Anatomical Region Laterality Modality Chest Digital Radiogra phy 05/30/2023 7:53 PM EDT Impressions 05/30/2023 8:57 PM EDT IMPRESSION: No acute lung disease. THIS DOCUMENT HAS BEEN ELECTRONICALLY SIGNED BY KB HENSON MD Narrative 05/30/2023 8:57 PM EDT PROCEDURE INFORMATION: Exam: XR Chest Exam date and time: 05/30/2023 7:53 PM Age: 83 years old Clinical indication: Other: PT coming into the er w/ edema. TECHNIQUE: Imaging protocol: Radiologic exam of the chest. Views: 2 views. COMPARISON: CT ABDOMEN PELVIS WO(Adult) 06/08/2020 3:26 PM FINDINGS: Lungs: No acute lung disease. No consolidation. Pleural spaces: No pleural effusion. No pneumothorax. Heart/Mediastinum: No cardiomegaly. Bones/joints: Degenerative changes. Procedure Note Kb Henson MD - 05/30/2023 PROCEDURE INFORMATION: Exam: XR Chest Exam date and time: 05/30/2023 7:53 PM Age: 83 years old Clinical indication: Other: PT coming into the er w/ edema. TECHNIQUE: Imaging protocol: Radiologic exam of the chest. Views: 2 views. COMPARISON: CT ABDOMEN PELVIS WO(Adult) 06/08/2020 3:26 PM FINDINGS: Lungs: No acute lung disease. No consolidation. Pleural spaces: No pleural effusion. No pneumothorax. Heart/Mediastinum: No cardiomegaly. Bones/joints: Degenerative changes. IMPRESSION IMPRESSION: No acute lung disease. THIS DOCUMENT HAS BEEN ELECTRONICALLY SIGNED BY KB HENSON MD Vinayak Engle MD RADIOLOGY ([facility]) documented in this encounter Visit Diagnoses Diagnosis Uncontrolled hypertension- Primary Unspecified essential hypertension Edema leg Edema Elevated d-dimer Abnormal coagulation profile Malaise and fatigue Other malaise and fatigue Pupil dilation Mydriasis (persistent), not due to mydriatics Chest pain Chest pain, unspecified Heart failure (HCC) Heart failure, unspecified Uncontrolled hypertension Unspecified essential hypertension Hypokalemia Hypopotassemia Ankle swelling Effusion of ankle and foot joint Anxiety Anxiety state, unspecified Cigarette smoker Tobacco use disorder Anisocoria Collagenous colitis Other and unspecified noninfectious gastroenteritis and colitis Hypokalemia Hypopotassemia documented in this encounter Administered Medications Inactive Administered Medications - up to 3 most recent administrations Medication Order MAR Action Action Date Dose Rate Site Acetaminophen (Tylenol) tab 650 mg 650 mg, Oral, Q6H PRN Pain, Mild, Fever >38C(100.5F), Starting on Mon05/31/23 at 0120, Until Julita 06/01/23 at 1745, Maximum of 4 grams (4000 mg) per day. Given 05/31/2023 8:55 PM EDT 650 mg Given 05/31/2023 1:06 PM EDT 650 mg amLODIPine (Norvasc) tab 5 mg 5 mg, Oral, Daily(AM), First dose on Mon05/31/23 at 0930, Until Discontinued Given 06/01/2023 8:52 AM EDT 5 mg Given 05/31/2023 9:01 AM EDT 5 mg Bisacodyl (Dulcolax) supp 10 mg 10 mg, Rectal, DAILY PRN Constipation, Starting on 06/03/23 at 0120, Until Julita 06/01/23 at 1745, Administer if no bowel movement within past 72 hours and patient unable to take oral medications. Bisacodyl (Dulcolax) tab 5 mg 5 mg, Oral, DAILY PRN Constipation, Starting on 06/03/23 at 0120, Until Julita 06/01/23 at 1745, Administer in addition to polyethylene glycol and senna-docusate if no bowel movement in past 72 hours. Budesonide ER (Entocort EC) cap 6 mg 6 mg, Oral, Daily(AM), First dose (after last modification) on Mon05/31/23 at 0930, Until Discontinued, For oral administration only ! Given 06/01/2023 8:55 AM EDT 6 mg Given 05/31/2023 9:01 AM EDT 6 mg clonazePAM (KlonoPIN) tab 0.5 mg 0.5 mg, Oral, ONCE, On Mon05/31/23 at 0230, For 1 dose Given 05/31/2023 2:01 AM EDT 0.5 mg clonazePAM (KlonoPIN) tab 0.5 mg 0.5 mg, Oral, Q8H PRN Anxiety, Starting on Mon05/31/23 at 0427, Until Mon06/01/23 at 1745 Given 06/01/2023 8:52 AM EDT 0.5 mg Given 05/31/2023 7:22 PM EDT 0.5 mg Given 05/31/2023 10:28 AM EDT 0.5 mg diphenoxylate-atropine 2.5-0.025 mg per tab (Lomotil) 2 Tablet 2 Tablet, Oral, QID PRN Diarrhea, Starting on Mon05/31/23 at 0849, Until Mon06/01/23 at 1745 Given 06/01/2023 8:52 AM EDT 2 Tablets Given 05/31/2023 8:48 PM EDT 2 Tablets Given 05/31/2023 1:06 PM EDT 2 Tablets hydrALAZINE (Apresoline) inj 10 mg 10 mg, Intravenous, Q4H PRN Hypertension, Give for BP greater than 180/100, Starting on Mon05/31/23 at 0400, Until Mon06/01/23 at 0315, Do not start prn hydralazine until one hour after all home PO antihypertensives given (lisinopril, hydrochlorothiazide and metoprolol) Given 05/31/2023 6:48 AM EDT 10 mg hydrALAZINE (Apresoline) inj 10 mg 10 mg, Intravenous, Q4H PRN Hypertension, Give for SBP greater than 180 or DBP greater than 100, Starting on Mon06/01/23 at 0315, Until Mon06/01/23 at 1745, Do not start prn hydralazine until one hour after all home PO antihypertensives given (lisinopril, hydrochlorothiazide and metoprolol) Given 06/01/2023 3:41 AM EDT 10 mg hydroCHLOROthiazide cap 12.5 mg 12.5 mg, Oral, Daily(AM), First dose on Mon05/31/23 at 0900, Until Discontinued Given 06/01/2023 8:52 AM EDT 12.5 mg Given 05/31/2023 8:29 AM EDT 12.5 mg Lisinopril (Prinivil) tab 20 mg 20 mg, Oral, Daily(AM), First dose (after last modification) on Mon05/31/23 at 0900, Until Discontinued Given 06/01/2023 8:53 AM EDT 20 mg Given 05/31/2023 8:29 AM EDT 20 mg LORAzepam (Ativan) tab 0.5 mg 0.5 mg, Oral, ONCE, On Mon05/31/23 at 0730, For 1 dose, On way to MRI Given 05/31/2023 9:01 AM EDT 0.5 mg Mesalamine (Lialda) DR tab 1,200 mg 1,200 mg, Oral, QHS, First dose on Mon05/31/23 at 2200, Until Discontinued, This med should NOT be Crushed or Chewed Given 05/31/2023 8:48 PM EDT 1,200 mg metoprolol succinate XL (toPROL XL) tab 100 mg 100 mg, Oral, ONCE, On Mon05/31/23 at 0115, For 1 dose, Hold for HR less than 60 or SBP below 100 and notify service if dose is held This med should NOT be Crushed or Chewed. Given 05/31/2023 1:15 AM EDT 100 mg Nutrisource (soluble fiber packet) 1 Packet, Oral, BID (.AM/PM), First dose (after last modification) on Mon05/31/23 at 0930, Until Discontinued, Stir one packet into at least 4 oz of any hot or cold beverage or prepared soft food, including purees. Stir until dissolved. Given 06/01/2023 8:55 AM EDT 1 Packet Given 05/31/2023 8:48 PM EDT 1 Packet Given 05/31/2023 10:33 AM EDT 1 Packet Polyethylene Glycol 3350 (Miralax) oral powder 17 g 17 g (1 Packet), Oral, DAILY PRN Constipation, Starting on Mon05/31/23 at 0120, Until Mon06/01/23 at 1745, Administer if no bowel movement within past 24 hours. potassium chloride ER tab 20 mEq 20 mEq, Oral, ONCE, On Mon05/30/23 at 2315, For 1 dose, This med should NOT be Crushed or Chewed Given 05/30/2023 10:49 PM EDT 20 mEq potassium chloride ER tab 20 mEq 20 mEq, Oral, ONCE, On Mon05/31/23 at 0430, For 1 dose, This med should NOT be Crushed or Chewed Given 05/31/2023 4:26 AM EDT 20 mEq potassium chloride ER tab 20 mEq 20 mEq, Oral, ONCE, On Mon06/01/23 at 0815, For 1 dose, This med should NOT be Crushed or Chewed Given 06/01/2023 8:52 AM EDT 20 mEq senna-docusate (Senokot-S) 1 Tablet 1 Tablet, Oral, BID PRN Constipation, Starting on Mon06/02/23 at 0120, Until Mon06/01/23 at 1745, Administer in addition to polyethylene glycol if no bowel movement within past 48 hours. documented in this encounter Active and Recently Administered Medications Times are shown in EDT. Scheduled Medication Order 05/30/2023 05/31/2023 06/01/2023 amLODIPine (Norvasc) tab 5 mg 5 mg, Oral, Daily(AM), First dose on Mon05/31/23 at 0930, Until Discontinued 09 (Given - Provider: Luann Mendez RN) 0852 (Given - Provider: Nicolasa Mendieta, NETO) Budesonide ER (Entocort EC) cap 6 mg 6 mg, Oral, Daily(AM), First dose (after last modification) on Mon05/31/23 at 0930, Until Discontinued, For oral administration only ! 900 (Given - Provider: Luann Mendez RN) 0855 (Given - Provider: Nicolasa Mendieta RN) clonazePAM (KlonoPIN) tab 0.5 mg (COMPLETED) 0.5 mg, Oral, ONCE, On Mon05/31/23 at 0230, For 1 dose 0201 (Given - Provider: Roque Stuart RN) hydroCHLOROthiazide cap 12.5 mg 12.5 mg, Oral, Daily(AM), First dose on Mon05/31/23 at 0900, Until Discontinued 828 (Given - Provider: Luann Mendez RN) 0852 (Given - Provider: Nicolasa Mendieta, NETO) Lisinopril (Prinivil) tab 20 mg 20 mg, Oral, Daily(AM), First dose (after last modification) on Mon05/31/23 at 0900, Until Discontinued 828 (Given - Provider: Luann Mendez RN) 0853 (Given - Provider: Nicolasa Mendieta, NETO) LORAzepam (Ativan) tab 0.5 mg (COMPLETED) 0.5 mg, Oral, ONCE, On Mon05/31/23 at 0730, For 1 dose, On way to MRI 900 (Given - Provider: Luann Mendez RN) Mesalamine (Lialda) DR tab 1,200 mg 1,200 mg, Oral, QHS, First dose on Mon05/31/23 at 2200, Until Discontinued, This med should NOT be Crushed or Chewed 2047 (Given - Provider: Natasha Farah RN) metoprolol succinate XL (toPROL XL) tab 100 mg (COMPLETED) 100 mg, Oral, ONCE, On Mon05/31/23 at 0115, For 1 dose, Hold for HR less than 60 or SBP below 100 and notify service if dose is held This med should NOT be Crushed or Chewed. 0115 (Given - Provider: Roque Stuart RN) Nutrisource (soluble fiber packet) 1 Packet, Oral, BID (.AM/PM), First dose (after last modification) on Mon05/31/23 at 0930, Until Discontinued, Stir one packet into at least 4 oz of any hot or cold beverage or prepared soft food, including purees. Stir until dissolved. 1033 (Given - Provider: Luann Mendez RN)2047 (Given - Provider: Natasha Farah, NETO) 0855 (Given - Provider: Nicolasa Mendieta, NETO) potassium chloride ER tab 20 mEq (COMPLETED) 20 mEq, Oral, ONCE, On Mon05/30/23 at 2315, For 1 dose, This med should NOT be Crushed or Chewed 2248 (Given - Provider: Madiha Del Cid RN) potassium chloride ER tab 20 mEq (COMPLETED) 20 mEq, Oral, ONCE, On 05/31/23 at 0430, For 1 dose, This med should NOT be Crushed or Chewed 0426 (Given - Provider: Zamzam Goldstein RN) potassium chloride ER tab 20 mEq (COMPLETED) 20 mEq, Oral, ONCE, On Julita 06/01/23 at 0815, For 1 dose, This med should NOT be Crushed or Chewed 0852 (Given - Provider: Nicolasa Mendieta, NETO) PRN Medication Order 05/30/2023 05/31/2023 06/01/2023 Acetaminophen (Tylenol) tab 650 mg 650 mg, Oral, Q6H PRN Pain, Mild, Fever >38C(100.5F), Starting on Mon05/31/23 at 0120, Until Julita 06/01/23 at 1745, Maximum of 4 grams (4000 mg) per day. 1306 (Given - Provider: Luann Mendez RN)2054 (Given - Provider: Natasha Farah RN) Bisacodyl (Dulcolax) supp 10 mg(Linked Group 1) 10 mg, Rectal, DAILY PRN Constipation, Starting on 06/03/23 at 0120, Until Julita 06/01/23 at 1745, Administer if no bowel movement within past 72 hours and patient unable to take oral medications. Bisacodyl (Dulcolax) tab 5 mg(Linked Group 1) 5 mg, Oral, DAILY PRN Constipation, Starting on 06/03/23 at 0120, Until Julita 06/01/23 at 1745, Administer in addition to polyethylene glycol and senna-docusate if no bowel movement in past 72 hours. clonazePAM (KlonoPIN) tab 0.5 mg 0.5 mg, Oral, Q8H PRN Anxiety, Starting on Mon05/31/23 at 0427, Until Julita 06/01/23 at 1745 1028 (Given - Provider: Luann Mendez RN)1922 (Given - Provider: Natasha Farah RN) 0852 (Given - Provider: Nicolasa Mendieta, NETO) dicyclomine (Bentyl) cap 10 mg 10 mg, Oral, BID PRN Indigestion, Starting on Mon05/31/23 at 0118, Until Mon06/01/23 at 1745 diphenoxylate-atropine 2.5-0.025 mg per tab (Lomotil) 2 Tablet 2 Tablet, Oral, QID PRN Diarrhea, Starting on Mon05/31/23 at 0849, Until Mon06/01/23 at 1745 0901 (Given - Provider: Luann Mendez, NETO)1306 (Given - Provider: Luann Mendez RN)2048 (Given - Provider: Natasha Farah, NETO) 0852 (Given - Provider: Nicolasa Mendieta RN) hydrALAZINE (Apresoline) inj 10 mg (CANCELED) 10 mg, Intravenous, Q4H PRN Hypertension, Give for BP greater than 180/100, Starting on Mon05/31/23 at 0400, Until Mon06/01/23 at 0315, Do not start prn hydralazine until one hour after all home PO antihypertensives given (lisinopril, hydrochlorothiazide and metoprolol) 0648 (Given - Provider: Zamzam Goldstein RN) hydrALAZINE (Apresoline) inj 10 mg 10 mg, Intravenous, Q4H PRN Hypertension, Give for SBP greater than 180 or DBP greater than 100, Starting on Mon06/01/23 at 0315, Until Mon06/01/23 at 1745, Do not start prn hydralazine until one hour after all home PO antihypertensives given (lisinopril, hydrochlorothiazide and metoprolol) 0341 (Given - Provider: Natasha Farah RN) melatonin tab 3 mg 3 mg, Oral, HS PRN Insomnia, Starting on Mon05/31/23 at 0120, Until Mon06/01/23 at 1745 ondansetron (Zofran) inj 4 mg 4 mg, IV Push, Q6H PRN Nausea, Starting on Mon05/31/23 at 0120, Until Mon06/01/23 at 1745 Polyethylene Glycol 3350 (Miralax) oral powder 17 g(Linked Group 1) 17 g (1 Packet), Oral, DAILY PRN Constipation, Starting on Mon05/31/23 at 0120, Until Mon06/01/23 at 1745, Administer if no bowel movement within past 24 hours. senna-docusate (Senokot-S) 1 Tablet(Linked Group 1) 1 Tablet, Oral, BID PRN Constipation, Starting on Mon06/02/23 at 0120, Until Julita 06/01/23 at 1745, Administer in addition to polyethylene glycol if no bowel movement within past 48 hours. sodium chloride 0.9 % flush/inj 3 mL 3 mL, IV Push, PRN Other, Line Patency, Starting on Mon05/31/23 at 0119, Until Julita 06/01/23 at 1745, Do not flush if lock, PICC, or central line not in place, IV infusing or unable to flush Linked Groups Order Group 1: Polyethylene Glycol 3350 (Miralax) oral powder 17 gJump to med 17 g (1 Packet), Oral, DAILY PRN Constipation, Starting on Mon05/31/23 at 0120, Until Julita 06/01/23 at 1745, Administer if no bowel movement within past 24 hours. And senna-docusate (Senokot-S) 1 TabletJump to med 1 Tablet, Oral, BID PRN Constipation, Starting on Mon06/02/23 at 0120, Until Julita 06/01/23 at 1745, Administer in addition to polyethylene glycol if no bowel movement within past 48 hours. And Bisacodyl (Dulcolax) tab 5 mgJump to med 5 mg, Oral, DAILY PRN Constipation, Starting on 06/03/23 at 0120, Until Julita 06/01/23 at 1745, Administer in addition to polyethylene glycol and senna- docusate if no bowel movement in past 72 hours. And Bisacodyl (Dulcolax) supp 10 mgJump to med 10 mg, Rectal, DAILY PRN Constipation, Starting on 06/03/23 at 0120, Until Julita 06/01/23 at 1745, Administer if no bowel movement within past 72 hours and patient unable to take oral medications. documented in this encounter Additional Health Concerns Infection Onset Date Last Indicated Resolved Time Respiratory Rule-Out 05/31/2023 05/31/2023 024 2:04 AM EDT COVID-19 Rule-Out 05/31/2023 05/31/202305/31/2023 2:04 AM EDT documented as of this encounter Advance Directives Latest Code Status on File Code Status Date Activated Date Inactivated Comments Full Code 05/31/2023 1:21 AM 06/01/2023 5:50 PM This order reflects the patients wishes and were consensually agreed upon. Question Answer Comments Discussion of Advance Directives occurred with: Patient Care Teams Director Of Residential Services Relationship Specialty Start Date End Date Neema Pop DO [facility] [address] [place] [address] PCP - General 09/03/07 documented as of this encounter
--- OUTSIDE RECORDS SUMMARY | 2023-06-30 08:48 | External Medical Summary ---
Author Name Unknown Address Unknown Organization K1F:LABORATORY [facility] - [address] [place] [address] Laboratory Report Ordering Provider Test Date Status REINALDO NUNEZ 05/30/2023 20:27:00 Final Observation Date Value Abnormality Reference (Units ) Status SYNC LEUKOCYTES IN BLOOD BY AUTOMATED COUNT 05/30/2023 20:27:00 6.66 4.00-10.80 (K/uL) Final Segs 05/30/2023 20:27:00 52.8 40.0-75.0 (%) Final Lymphs % 05/30/2023 20:27:00 36.2 18.0-42.0 (%) Final Monos 05/30/2023 20:27:00 7.7 1.0-11.0 (%) Final Eosinophils 05/30/2023 20:27:00 2.3 0.0-6.0 (%) Final Basos 05/30/2023 20:27:00 0.8 0.0-2.0 (%) Final Immature Granulocyte, Percent 05/30/2023 20:27:00 0.2 0.0-2.0 (%) Final Absolute Segs 05/30/2023 20:27:00 3.53 1.80-7.70 (K/uL) Final Lymphs, absolute 05/30/2023 20:27:00 2.41 1.00-4.80 (K/ul) Final Monos, Abs 05/30/2023 20:27:00 0.51 0.00-1.10 (K/uL) Final Eos, Abs 05/30/2023 20:27:00 0.15 0.00-0.70 (K/uL) Final Basos, Abs 05/30/2023 20:27:00 0.05 0.00-0.20 (K/uL) Final Immature Granulocytes, Number 05/30/2023 20:27:00 0.01 0.00-0.20 (K/uL) Final Performing Location LABORATORY [facility] - [address] [place] [place] [address]
--- OUTSIDE RECORDS SUMMARY | 2023-06-30 08:48 | External Medical Summary ---
Author Name Unknown Address Unknown Organization K1F:LABORATORY [facility] - [address] [facility] [place] [address] Laboratory Report Ordering Provider Test Date Status REINALDO NUNEZ 05/31/2023 01:13:50 Final ADMITTED patient Observation Date Value Abnormality Reference (Units ) Status Adenovirus DNA [Presence] in Nasopharynx by FIDEL with non-probe detection 05/31/2023 01:13:50 Negative Negative Final Human coronavirus 229E RNA [Presence] in Nasopharynx by FIDEL with non-probe detection 05/31/2023 01:13:50 Negative Negative Final Human coronavirus HKU1 RNA [Presence] in Nasopharynx by FIDEL with non-probe detection 05/31/2023 01:13:50 Negative Negative Final Human coronavirus NL63 RNA [Presence] in Nasopharynx by FIDEL with non-probe detection 05/31/2023 01:13:50 Negative Negative Final Human coronavirus OC43 RNA [Presence] in Nasopharynx by FIDEL with non-probe detection 05/31/2023 01:13:50 Negative Negative Final SARS-CoV-2 (COVID-19) RNA [Presence] in Nasopharynx by FIDEL with non-probe detection 05/31/2023 01:13:50 Negative Negative Final Human metapneumovirus RNA [Presence] in Nasopharynx by FIDEL with non-probe detection 05/31/2023 01:13:50 Negative Negative Final Rhinovirus+Enterovirus RNA [Presence] in Nasopharynx by FIDEL with non-probe detection 05/31/2023 01:13:50 Negative Negative Final Influenza virus A RNA [Presence] in Nasopharynx by FIDEL with non-probe detection 05/31/2023 01:13:50 Negative Negative Final Influenza virus B RNA [Presence] in Nasopharynx by FIDEL with non-probe detection 05/31/2023 01:13:50 Negative Negative Final Parainfluenza virus 1 RNA [Presence] in Nasopharynx by FIDEL with non-probe detection 05/31/2023 01:13:50 Negative Negative Final Parainfluenza virus 2 RNA [Presence] in Nasopharynx by FIDEL with non-probe detection 05/31/2023 01:13:50 Negative Negative Final Parainfluenza virus 3 RNA [Presence] in Nasopharynx by FIDEL with non-probe detection 05/31/2023 01:13:50 Negative Negative Final Parainfluenza virus 4 RNA [Presence] in Nasopharynx by FIDEL with non-probe detection 05/31/2023 01:13:50 Negative Negative Final Respiratory syncytial virus RNA [Presence] in Nasopharynx by FIDEL with non-probe detection 05/31/2023 01:13:50 Negative Negative Final Bordetella pertussis.pertussis toxin promoter region [Presence] in Nasopharynx by FIDEL with non-probe detection 05/31/2023 01:13:50 Negative Negative Final Chlamydophila pneumoniae DNA [Presence] in Nasopharynx by FIDEL with non-probe detection 05/31/2023 01:13:50 Negative Negative Final Mycoplasma pneumoniae DNA [Presence] in Nasopharynx by FIDEL with non-probe detection 05/31/2023 01:13:50 Negative Negative Final Bordetella parapertussis [id number] DNA [Presence] in Nasopharynx by FIDEL with non-probe detection 05/31/2023 01:13:50 Negative Negative Final
The primers that detect Rhinovirus may cross react with some Enterorviruses. The validation of bronchial specimens, tracheal aspirates, and throats for this assay was developed and performance characteristics determined by [employer]. The validation of alternate specimen types has not been cleared or approved by the U.S. Food and Drug Administration (FDA). It has been determined that such clearance or approval is not necessary. Performing Location [address] [place] [facility] [address]
--- OUTSIDE RECORDS SUMMARY | 2023-06-30 08:48 | External Medical Summary ---
Author Name Unknown Address Unknown Organization K1F:LABORATORY [facility] - [address] [place] [address] Laboratory Report Ordering Provider Test Date Status MIRIAM GAGE 06/01/2023 04:19:00 Final Observation Date Value Abnormality Reference (Units ) Status BUN 06/01/2023 04:19:00 13 6-20 (mg/dL) Final Creatinine 06/01/2023 04:19:00 0.6 0.5-1.0 (mg/dL) Final Glomerular filtration rate/1.73 sq M.predicted [Volume Rate/Area] in Serum, Plasma or Blood by Creatinine-based formula (CKD-EPI) 06/01/2023 04:19:00 89 >=60 (mL/min) Final eGFR is calculated based on the CKD-EPI 2020 equation Sodium 06/01/2023 04:19:00 141 135-146 (m mol/L) Final Potassium 06/01/2023 04:19:00 3.4 Below low normal 3.5 -5.1 (mmol/L) Final Cl 06/01/2023 04:19:00 105 98-107 (mm ol/L) Final CO2 06/01/2023 04:19:00 25 22-32 (mmo l/L) Final Anion gap 06/01/2023 04:19:00 11 7-15 (mmol /L) Final Glucose 06/01/2023 04:19:00 86 70-120 (mg /dL) Final Calcium 06/01/2023 04:19:00 9.1 8.4-10.2 ( mg/dL) Final Performing Location LABORATORY [facility] - [address] [place] [address]
--- OUTSIDE RECORDS SUMMARY | 2023-06-30 08:48 | External Medical Summary ---
Author Name Unknown Address Unknown Organization K1F:LABORATORY [facility] - [place] [address] Laboratory Report Ordering Provider Test Date Status REINALDO NUNEZ 05/30/2023 20:28:00 Final Observation Date Value Abnormality Reference (Units ) Status Troponin T 05/30/2023 20:28:00 12 <=14 (ng/ L) Final Performing Location LABORATORY [facility] - [address] [place] [address]
--- OUTSIDE RECORDS SUMMARY | 2023-06-30 08:48 | External Medical Summary ---
Author Name Unknown Address Unknown Organization K1F:LABORATORY [facility] - [address] [place] [address] Laboratory Report Ordering Provider Test Date Status REINALDO NUNEZ 05/30/2023 20:28:00 Final Exclude Heart Failure: <300 pg/mL
Diagnose Heart Failure:
Age <50 yr: >450 pg/mL
50-75 yr: >900 pg/mL
>75 yr: >1800 pg/mL
GFR is 30-59 mL/min: >1200 pg/mL or Age- adjusted values
GFR <30 mL/min: do not use, not reliable

Prognostic threshold: 1000 pg/mL Observation Date Value Abnormality Reference (Units ) Status BNP, Pro-hormone 05/30/2023 20:28:00 892 Above high no rmal <300 (pg/mL) Final Performing Location LABORATORY [facility] - [address] [place] [address]
--- OUTSIDE RECORDS SUMMARY | 2023-06-30 08:48 | External Medical Summary ---
Author Name Unknown Address Unknown Organization K1F:LABORATORY [facility] - [address] [place] [address] Laboratory Report Ordering Provider Test Date Status MAYRAREINALDO 05/30/2023 20:28:00 Final Rheumatoid factor at a level above 50 [...] definitively correlate with clinical severity of disease. Observation Date Value Abnormality Reference (Units ) Status Fibrin D-dimer FEU [Mass/volume] in Platelet poor plasma by Immunoassay 05/30/2023 20:28:00 0.89 Above high normal <0.50 (ug/mL FEU) Final Performing Location LABORATORY [facility] - [address] [place] [address]
--- OUTSIDE RECORDS SUMMARY | 2023-06-30 08:48 | External Medical Summary ---
Author Name Unknown Address Unknown Organization K1F:LABORATORY [facility] - [address] [place] [address] Laboratory Report Ordering Provider Test Date Status REINALDO NUNEZ 05/30/2023 20:28:00 Final Observation Date Value Abnormality Reference (Units ) Status Phosphate 05/30/2023 20:28:00 3.5 2.5-4.8 (m g/dL) Final Performing Location LABORATORY [facility] - [address] [place] [address]
--- OUTSIDE RECORDS SUMMARY | 2023-06-30 08:48 | External Medical Summary ---
Author Name Unknown Address Unknown Organization K1F:LABORATORY [facility] - [address] [place] [address] Laboratory Report Ordering Provider Test Date Status REINALDO NUNEZ 05/30/2023 20:28:00 Final Observation Date Value Abnormality Reference (Units ) Status BUN 05/30/2023 20:28:00 16 6-20 (mg/dL) Final Creatinine 05/30/2023 20:28:00 0.7 0.5-1.0 (mg/dL) Final Glomerular filtration rate/1.73 sq M.predicted [Volume Rate/Area] in Serum, Plasma or Blood by Creatinine-based formula (CKD-EPI) 05/30/2023 20:28:00 84 >=60 (mL/min) Final eGFR is calculated based on the CKD-EPI 2020 equation Sodium 05/30/2023 20:28:00 143 135-146 (m mol/L) Final Potassium 05/30/2023 20:28:00 3.4 Below low normal 3.5 -5.1 (mmol/L) Final Cl 05/30/2023 20:28:00 106 98-107 (mm ol/L) Final CO2 05/30/2023 20:28:00 26 22-32 (mmo l/L) Final Anion gap 05/30/2023 20:28:00 11 7-15 (mmol /L) Final Glucose 05/30/2023 20:28:00 96 70-120 (mg /dL) Final Albumin 05/30/2023 20:28:00 3.5 Below low normal 3.8 -5.0 (g/dL) Final AST (Aspartate aminotransferase) 05/30/2023 20:28:00 19 10-35 (U/L) Fin al Alk Phos 05/30/2023 20:28:00 64 35-130 (U/ L) Final Bilirubin, Total 05/30/2023 20:28:00 0.2 <=1 .2 (mg/dL) Final Calcium 05/30/2023 20:28:00 8.7 8.4-10.2 ( mg/dL) Final Protein 05/30/2023 20:28:00 5.9 Below low normal 6.0 -8.3 (g/dL) Final ALT (Alanine aminotransferase) 05/30/2023 20:28:00 13 10-35 (U/L) Jean-Claude chester Performing Location LABORATORY [address] [place] [address]
--- OUTSIDE RECORDS SUMMARY | 2023-06-30 08:48 | External Medical Summary ---
Author Name Unknown Address Unknown Organization K0G:LABORATORY [place] [facility] [address] - [address] [place] [address] Laboratory Report Ordering Provider Test Date Status JAZ TALAMANTES 06/06/2023 13:55:46 Final Observation Date Value Abnormality Reference (Units ) Status BUN 06/06/2023 13:55:46 16 6-20 (mg/dL) Final Creatinine 06/06/2023 13:55:46 0.7 0.5-1.0 (mg/dL) Final Glomerular filtration rate/1.73 sq M.predicted [Volume Rate/Area] in Serum, Plasma or Blood by Creatinine-based formula (CKD-EPI) 06/06/2023 13:55:46 86 >=60 (mL/min) Final eGFR is calculated based on the CKD-EPI 2020 equation Sodium 06/06/2023 13:55:46 138 135-146 (m mol/L) Final Potassium 06/06/2023 13:55:46 6.4 Above high normal 3. 5-5.1 (mmol/L) Final Results rechecked. Cl 06/06/2023 13:55:46 104 98-107 (mm ol/L) Final CO2 06/06/2023 13:55:46 24 22-32 (mmo l/L) Final Anion gap 06/06/2023 13:55:46 10 7-15 (mmol /L) Final Glucose 06/06/2023 13:55:46 94 70-120 (mg /dL) Final Calcium 06/06/2023 13:55:46 10.9 Above high normal 8. 4-10.2 (mg/dL) Final Performing Location LABORATORY [facility] [place] [address]
--- OUTSIDE RECORDS SUMMARY | 2023-06-30 08:48 | External Medical Summary | Summary of Care ---
Author Name Unknown Organization [facility] Address [address] [place] [address] Phone [phone] Care Team Providers Care Repair Weaver Name Role Phone Neema Pop Primary Care Provider Reason for Visit * Auth/Cert Specialty Diagnoses / Procedures Referred By Michelle t Referred To Contact [facility] [address] [place] [address] Phone: [phone] Emergency Medicine [facility] [address] [place] [address] Referral ID Status Reason Start Date Expiration Date Visits Re quested Visits Authorized [id number] Encounter Details Date Type Department Care Team (Latest Contact Info) Description 05/31/2023 1:37 PM EDT - 05/31/2023 11:59 PM EDT Hospital Encounter Cardiac Studies, [facility] [address] [place] [address] Discharge Disposition: Home - Self Care Allergies [...] as of this encounter (statuses as of 06/01/2023) Medications Medication Sig Dispensed Refills Start Date End Date Status Potassium Chloride Anny ER 20 MEQ Oral Tablet Extended Release Take 1 Tablet by mouth in the morning and 1 Tablet before bedtime. Do all this for 7 days. 14 Tablet 0 05/30/2023 06/06/2023 Active Coenzyme Q10 (CO Q 10) 10 MG CAPS Take by mouth. 0 Diya pended Multivitamin Adult Oral Tablet Take by mouth. 0 Suspended Diphenoxylate-At ropine 2.5-0.025 MG Oral Tablet (Lomotil) Take 1 Tablet by mouth 4 times a day as needed for Diarrhea. 120 Tablet 0 02/02/2021 Suspended Additional Information Budesonide 3 MG Oral Capsule Delayed Release Particles (Entocort EC) Take 3 tablets by mouth daily then taper as instructed. 90 Capsule 1 02/04/2021 Suspended Additional Information Dicyclomine HCl 10 MG Oral Capsule (Bentyl) Take 1 Capsule by mouth 2 times a day as needed. 0 09/22/2021 Suspended Lisinopril 20 MG Oral Tablet (Prinivil) Take 1 Tablet by mouth in the morning. 0 09/15/2021 Suspended Mesalamine 1.2 GM Oral Tablet Delayed Release (Lialda) Take 1 Tablet by mouth in the morning. 0 09/09/2021 Suspended Metoprolol-HCTZ ER 100-12.5 MG Oral Tablet Extended Release 24 Hour Take by mouth . 0 Suspended Metamucil 28.3 % Oral Powder (Psyllium) Take 2 Scoops by mouth in the morning and 2 Scoops at noon and 2 Scoops before bedtime. Pt takes 2 tsp three times daily.. 0 03/28/2023 Suspended clonazePAM 0.5 MG Oral Tablet (KlonoPIN) 1 Tablet 2 times a day as needed for Anxiety. 0 11/23/2022 Suspended Vibegron 75 MG Oral Tablet (Gemtesa) Take 1 Tablet by mouth in the morning. 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 documented as of this encounter (statuses as of 06/01/2023) Immunizations Name Administration Dates Next Due TDAP [...] 06/06/2023 1:00 PM EDT Office Visit Cardiology, [facility] [address] [place] [address] [place], [address] [place] [address] Health Maintenance Due Date Last Done Comments [...] Procedure Name Priority Date/Time Associated Diagnosis Comments ECHO, COMPLETE (2D), TRANS-THORACIC Routine 05/31/2023 2:38 PM EDT Heart failure (HCC) documented in this encounter Results * ECHO, COMPLETE (2D), TRANS-THORACIC (05/31/2023 2:38 PM EDT) LEFT VENTRICULAR EJECTION FRACTION 63 % [facility] 05/31/2023 2:04 PM EDT Kulwinder Quezada PA-C [facility] documented in this encounter Advance Directives Latest Code Status on File Code Status Date Activated Date Inactivated Comments Full Code 05/31/2023 1:21 AM This order reflects the patients wishes and were consensually agreed upon. Question Answer Comments Discussion of Advance Directives occurred with: Patient Care Teams Repair Weaver Relationship Specialty Start Date End Date Neema Pop DO [address] [place] [address] Dr [address] [place] [address], [place] [id number] PCP - General 09/03/07 documented as of this encounter
--- OUTSIDE RECORDS SUMMARY | 2023-06-30 08:48 | External Medical Summary ---
Author Name Unknown Address Unknown Organization K1F:LABORATORY [facility] - [address] [place] [address] Laboratory Report Ordering Provider Test Date Status MIRIAM GAGE 05/31/2023 05:54:00 Final Observation Date Value Abnormality Reference (Units ) Status BUN 05/31/2023 05:54:00 13 6-20 (mg/dL) Final Creatinine 05/31/2023 05:54:00 0.6 0.5-1.0 (mg/dL) Final Glomerular filtration rate/1.73 sq M.predicted [Volume Rate/Area] in Serum, Plasma or Blood by Creatinine-based formula (CKD-EPI) 05/31/2023 05:54:00 89 >=60 (mL/min) Final eGFR is calculated based on the CKD-EPI 2020 equation Sodium 05/31/2023 05:54:00 146 135-146 (m mol/L) Final Potassium 05/31/2023 05:54:00 3.5 3.5-5.1 (m mol/L) Final Cl 05/31/2023 05:54:00 108 Above high normal 98 -107 (mmol/L) Final CO2 05/31/2023 05:54:00 27 22-32 (mmo l/L) Final Anion gap 05/31/2023 05:54:00 11 7-15 (mmol /L) Final Glucose 05/31/2023 05:54:00 79 70-120 (mg /dL) Final Calcium 05/31/2023 05:54:00 8.6 8.4-10.2 ( mg/dL) Final Performing Location LABORATORY [facility] - [address] [place] [address]
--- OUTSIDE RECORDS SUMMARY | 2023-06-30 08:48 | External Medical Summary ---
Author Name Unknown Address Unknown Organization K1F:LABORATORY [facility] - [address] [place] [address] Laboratory Report Ordering Provider Test Date Status MIRIAM GAGE 06/01/2023 04:19:00 Final Observation Date Value Abnormality Reference (Units ) Status WBC, Total 06/01/2023 04:19:00 5.61 4.00-10.80 (K/uL) Final RBC 06/01/2023 04:19:00 4.05 3.85-5.15 (M/uL) Final Hemoglobin 06/01/2023 04:19:00 12.4 12.0-15.3 (g/dL) Final HCT 06/01/2023 04:19:00 37.1 36.0-45.2 (%) Final MCV 06/01/2023 04:19:00 91.6 81.5-97.5 (fL) Final MCH 06/01/2023 04:19:00 30.6 27.0-34.0 (pg) Final MCHC 06/01/2023 04:19:00 33.4 32.0-36.0 (g/dL) Final RDW 06/01/2023 04:19:00 14.9 11.5-15.5 (%) Final Platelets 06/01/2023 04:19:00 249 140-400 (K/uL) Final MPV 06/01/2023 04:19:00 10.5 6.6-11.1 (fL) Final Nucleated erythrocytes/100 leukocytes [Ratio] in Blood by Automated count 06/01/2023 04:19:00 0 <=0 (/100 WBCs) Final Performing Location LABORATORY [facility] - [address] [place] [address]
--- OUTSIDE RECORDS SUMMARY | 2023-06-30 08:48 | External Medical Summary | Summary of Care ---
Author Name Unknown Organization [facility] Address [address] [place] [address] Phone [phone] Care Team Providers Care Enrollment Nurse Name Role Phone Neema Pop Primary Care Provider Reason for Visit * Reason Comments NEW PATIENT Hospital Follow-Up * Evaluate & Treat - Unlimited Visits (Within 10 days (routine)) - Pending Review Specialty Diagnoses / Procedures Referred By Contact Referred To Contact Cardiovascular Medicine / Cardiology Diagnoses Edema leg Chest pain Heart failure (HCC) Uncontrolled hypertension Hypokalemia Milton Fonsec[facility] [address] [facility] [place] [address] Jeronimo Harris MD [address] [place] [address] Referral ID Status Reason Start Date Expiration Date Visits Requested Visits Authorized [id number] Pending Review Specialty Services Required 06/01/[phone] Encounter Details Date Type Department Care Team (Late st Contact Info) Description 06/06/2023 1:00 PM EDT Office Visit Cardiology, [facility] [address] [place] [address] Fly Silveira DO [address] [place] [address] HTN, goal below 140/90*; Aortic valve sclerosis; Nonrheumatic aortic valve insufficiency; Hypokalemia Allergies Active Allergy Reactions Criticality Noted [...] the morning. 90 Capsule 3 06/06/2023 Active Coenzyme Q10 (CO Q 10) 10 MG CAPS Take by mouth. 0 06/06/2023 Disc ontinued (Medication List Clean Up) Metoprolol-HCTZ ER 100-12.5 MG Oral Tablet Extended Release 24 Hour Take by mouth . 0 06/06/2023 Discontinued (Medication List Clean Up) amLODIPine Besylate 5 MG Oral Tablet (Norvasc) Take 1 Tablet by mouth in the morning. 30 Tablet 0 06/02/2023 06/06/2023 Discontinued (Refill) hydroCHLOROthiazi de 12.5 MG Oral Capsule Take 1 Capsule by mouth in the morning. 30 Capsule 0 06/02/2023 06/06/2023 Discontinued (Refill) documented as of this encounter (statuses as [...] Current Smokeless Tobacco: Never Tobacco Cessation:Counseling Given: No Comments:1/day Alcohol Use Standard Drinks/Week Comments Not [...] Sign Reading Time Taken Comments Blood Pressure 140/62 06/06/2023 12:54 PM EDT Pulse 82 06/06/2023 12:54 PM EDT Temperature - - Respiratory Rate 14 06/06/2023 12:5 4 PM EDT Oxygen Saturation - - Inhaled Oxygen Concentration - - Weight 46.1 kg (101 lb 11.2 oz) 024 12:54 PM EDT Height - - Body Mass Index 17.46 05/31/2023 2:40 AM EDT documented in this [...] No 05/31/2023 documented as of this encounter Progress Notes * Fly Silveira, - 06/06/2023 1:15 PM EDT Cardiology Consultation [facility] 06/06/2023 History of Present Illness: Taylor Tate is a 83 year old year old female seen in cardiology follow up as per the request of Dr Fonseca of the hospitalist service at [facility] for ongoing treatment of high blood pressure. Patient presents accompanied by her , Abdirizak, who is also a patient of this practice and typically sees Dr. Harris. Radha was recently admitted to [facility] from 05/30/2023 until 06/01/2023. Shewould presented due to concerns of 3 weeks of progressive bilateral ankle swelling. She would takenher blood pressure at home and had a systolic blood pressure reading of 190 millimeters Hg. This prompted her to go to the emergency department where her initial blood pressure was 217/74. She would also expressed concern about unequal pupil size. She underwent a CT of the brain followedby an MRI of the brain without intracranial pathology. She underwent a lower extremity venous duplex was negative for DVT. 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 An echocardiogram and an EKG were both were performed. The patient was treated with amlodipine 5 milligrams daily, hydrochlorothiazide 12.5 milligrams daily, and potassium chloride supplementation 20 milliequivalents twice daily. She notes that her lower extremity swelling has completely resolved. She feels well without any chest discomfort or shortness of breath. She has been a long- time cigarette smoker, and he has been abstaining from cigarettes. She denies any chest discomfort. She denies palpitations or change in activity tolerance. 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, G89.29 History of substance abuse (HCC) F19.11 Uncontrolled hypertension I10 Irritable bowel syndrome K58.9 Collagenous colitis K52.831 Ankle swelling M25.473 Cigarette smoker F17.210 Anisocoria H57.02 Hypokalemia E87.6 Past Surgical History: Procedure Laterality Date COLONOSCOPY, DIAGNOSTIC (RECTUM) 01/14/2020 microscopic colitis / [facility] EGD, FLEXIBLE, DIAGNOSTIC 01/14/2020 normal / [facility] Family History: Father suddenly at the age of 37 of suspected heart event Sister at the age of 61, with h/o coronary disease Another sister, with history of venous insufficiency and CAD Social History: Social History Socioeconomic History Marital status: Spouse name: Abdirizak Number of children: 2 children, son who of UNnatural causes Daughter , alive with non cardiac medical problems 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 , 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 ,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, 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 Tobacco Use Smoking status: Former Current packs/day: 0.00 Average packs/day: 0.3 packs/day for 69.3 years (17.3 ttl pk-yrs) Types: Cigarettes Start date: 1954 Quit date: 05/29/2023 Years since quittin.0 Passive exposure: Current Smokeless tobacco: Never Tobacco comments: 1/day Allergies: Lactose, Other allergy (see comments), Ciprofloxacin, Macrobid [nitrofurantoin], Augmentin [amoxicillin-pot clavulanate], Bactrim [sulfamethoxazole-trimethoprim], Doxycycline, Flagyl [metronidazole], and Sulfa antibiotics Medications: Current Outpatient Medications Medication Sig Dispense Refill Multivitamin Adult Oral Tablet Take by mouth. Diphenoxylate-Atropine 2.5-0.025 MG Oral Tablet (Lomotil) Take 1 Tablet by mouth 4 times a day as needed for Diarrhea. 120 Tablet 0 Budesonide 3 MG Oral Capsule Delayed Release Particles (Entocort EC) Take 3 tablets by mouth daily then taper as instructed. 90 Capsule 1 Dicyclomine HCl 10 MG Oral Capsule (Bentyl) Take 1 Capsule by mouth 2 times a day as needed. Lisinopril 20 MG Oral Tablet (Prinivil) Take 1 Tablet by mouth in the morning. Mesalamine 1.2 GM Oral Tablet Delayed Release (Lialda) Take 2 Tablets by mouth in the morning. Potassium Chloride Anny ER 20 MEQ Oral Tablet Extended Release Take 1 Tablet by mouth in the morning and 1 Tablet before bedtime. Do all this for 7 days. 14 Tablet 0 Metamucil 28.3 % Oral Powder (Psyllium) Take 2 Scoops by mouth in the morning and 2 Scoops at noon and 2 Scoops before bedtime. Pt takes 2 tsp three times daily.. clonazePAM 0.5 MG Oral Tablet (KlonoPIN) 1 Tablet 2 times a day as needed for Anxiety. Vibegron 75 MG Oral Tablet (Gemtesa) Take 1 Tablet by mouth in the morning. amLODIPine Besylate 5 MG Oral Tablet (Norvasc) Take 1 Tablet by mouth in the morning. 30 Tablet 0 hydroCHLOROthiazide 12.5 MG Oral Capsule Take 1 Capsule by mouth in the morning. 30 Capsule 0 Metoprolol Succinate ER 100 MG Oral Tablet Extended Release 24 Hour (toPROL XL) Take 1 Tablet by mouth in the morning. No current facility-administered medications for this visit. OBJECTIVE/PHYSICAL EXAMINATION: BP 140/62 (BP Site: Left Arm, BP Position: Sitting, BP Cuff Size: Regular) | Pulse 82 | Resp 14 | Wt 46.1 kg (101 lb 11.2 oz) | BMI 17.46 kg/m | BSA 1.44 m General: no acute distress and stated age Eyes: conjunctiva are pink and non-injected, sclera clear Neck: normal jugular venous pulse, no hepatojugular reflux Chest: normal shape and normal respiratory effort Lungs: clear to auscultation and percussion Cardiac Exam: - Regular rhythm, 1/6 systolic murmur heard best a right sternal border and radiatingto the neck Abdomen: abdomen soft, non-tender, no abnormal masses and no hepatosplenomegaly Musculoskeletal: no gait disturbance, no weakness Extremities: no edema and no cyanosis Neuro: grossly normal exam Psych: appropriate affect and insight. Data: EKG performed at [facility] on 05/30/2023 and interpreted independently today: Sinus rhythm at 60 beats per minute, normal EKG, corrected QT interval 424 milliseconds TTecho 05/31/23: The qualitative LV ejection fraction is 60-64% (normal). There is aortic valve sclerosis without stenosis. Mild aortic valve regurgitation is present. There is mild mitral annular calcification. Mild mitral regurgitation is present. Trivial tricuspid regurgitation is present. The signal is inadequate to calculate pulmonary artery systolic pressure. IMPRESSION: 83 year old year old female HTN, goal below 140/90 (Primary) Blood pressure much improved today. Continue chronic treatment with metoprolol succinate 100 milligrams daily which she has been on for many years as well as lisinopril 20 milligrams daily. Continue amlodipine 5 milligrams daily and HCTZ 12.5 milligrams daily which was recently added. I have requested that she has a repeat basic metabolic panel today to reassess her potassium level before I refill her potassium chloride prescription Aortic valve sclerosis And mild aortic valve regurgitation Systolic murmur on physical exam correlates with mild aortic valve sclerosis without stenosis mild aortic regurgitation. Repeat echocardiogram at a 1 to 2 year interval for reassessment. Hypokalemia Patient notes difficulty swallowing potassium pills. We will reassess her potassium level today andwill determine need for ongoing potassium supplementation based on results. Patient encouraged to continue her abstinence from cigarettes. Disposition: Follow Up: Return in about 6 months (around 12/06/2023) for Clinic Visit. | For: Clinic Visit Fly Silveira DO Cardiology, [address] [address] This chart was completed in part utilizing [employer] Speech Voice Recognition Software. Grammatical errors, random word insertions, prounoun errors, and incomplete sentences are an occasional consequence of this system due to software limitations, ambient noise, and hardware issues. Any formal questions or concerns about the content, text, or information contained within the body of this dictation should be directly addressed to the provider for clarification. documented in this encounter Nursing Notes * Coreen Rhodes, RN - 06/06/2023 1:00 PM EDT Examination Room: Name: Taylor Tate Date of : (1940). Reason for Visit: New patient/hospital follow up Interim Hospitalization(s): [facility] Problems/Concerns: Monitoring bp at home, reports controlled. Saw PCP yesterday, reports systolic 118 at time of that visit. Lower extremity swelling resolved. Chest Pain/SOB: Denies [facility] Discussed: Not applicable [facility] is a way you can talk to your provider online through e-mail. Would you like to sign up? I can activate it for you? DECLINES Patient was instructed to not get up on the exam table until directed and assisted by their provider; patient is to remain seated in the chair/ wheelchair/ exam table for fall prevention and safety reasons. Patient is aware to have assistance to step down off exam table with personnel. Patient voiced full comprehension of instructions. documented in this encounter Plan of Treatment Upcoming Encounters Date Type Department Care Team (Late st Contact Info) Description 12/12/2023 1:30 PM EDT Office Visit Cardiology, [facility] [address] [place] [address] Fly Silveira, [address] [place] [address] Pending Results Name Type Priority Associated Diagnoses Date /Time BASIC METABOLIC PANEL Lab Routine HTN, goal below 140/90 Hypokalemia 06/06/2023 1:55 PM EDT Scheduled Orders Name Type Priority Associated Diagnoses Orde r Schedule BASIC METABOLIC PANEL Lab Routine HTN, goal below 140/90 Hypokalemia Expected: 06/06/2023, Expires: 06/05/2024 Health Maintenance Due Date Last Done Comments [...] goal below 140/90- Primary Unspecified essential hypertension Aortic valve sclerosis Aortic valve disorders Nonrheumatic aortic valve insufficiency Aortic valve disorders Hypokalemia Hypopotassemia documented in this encounter Advance Directives Latest Code Status on File Code Status Date Activated Date Inactivated Comments Full Code 05/31/2023 1:21 AM 06/01/2023 5:50 PM This order reflects the patients wishes and were consensually agreed upon. Question Answer Comments Discussion of Advance Directives occurred with: Patient Care Teams Enrollment Nurse Relationship Specialty Start Date End Date Neema Pop DO [address] [facility] [address] [place] [address] PCP - General 09/03/07 documented as of this encounter"
--- OUTSIDE RECORDS SUMMARY | 2023-06-30 08:48 | External Medical Summary ---
Author Name Unknown Address Unknown Organization K1F:[facility] - [address] [place] [address] Laboratory Report Ordering Provider Test Date Status REINALDO NUNEZ 05/30/2023 20:27:00 Final Observation Date Value Abnormality Reference (Units ) Status WBC, Total 05/30/2023 20:27:00 6.66 4.00-10.80 (K/uL) Final RBC 05/30/2023 20:27:00 4.34 3.85-5.15 (M/uL) Final Hemoglobin 05/30/2023 20:27:00 12.9 12.0-15.3 (g/dL) Final HCT 05/30/2023 20:27:00 39.5 36.0-45.2 (%) Final MCV 05/30/2023 20:27:00 91.0 81.5-97.5 (fL) Final MCH 05/30/2023 20:27:00 29.7 27.0-34.0 (pg) Final MCHC 05/30/2023 20:27:00 32.7 32.0-36.0 (g/dL) Final RDW 05/30/2023 20:27:00 14.9 11.5-15.5 (%) Final Platelets 05/30/2023 20:27:00 293 140-400 (K/uL) Final MPV 05/30/2023 20:27:00 10.6 6.6-11.1 (fL) Final Nucleated erythrocytes/100 leukocytes [Ratio] in Blood by Automated count 05/30/2023 20:27:00 0 <=0 (/100 WBCs) Final Performing Location [facility] - [address] [place] [address]
--- OUTSIDE RECORDS SUMMARY | 2023-06-30 08:48 | External Medical Summary ---
Author Name Unknown Address Unknown Organization K1F:[facility] - [address] [place] [address] Laboratory Report Ordering Provider Test Date Status REINALDO NUNEZ 05/30/2023 20:28:00 Final Observation Date Value Abnormality Reference (Units ) Status Ethanol 05/30/2023 20:28:00 Negative Negative Final Performing Location [facility] - [address] [place] [address]
--- OUTSIDE RECORDS SUMMARY | 2023-06-30 08:48 | External Medical Summary | Continuity of Care Document ---
Author Name Unknown Organization [facility] [address] [place], [place] [address] [place] [id number] Care Team Providers Care Foreign Law Consultant Name Role Phone Neema Pop Primary Care Physician [phone] Encounter [facility] [id number] Date(s): 05/07/23 - 05/07/23 [facility] [address] [facility] [address] [facility] [place], [phone] Encounter Diagnosis Diarrhea, unspecified(Final) - Discharge Disposition: Home or Self Care Attending Physician: CHLOÉ Cardoso Kelli Jo Referring Physician: CHLOÉ Cardoso Kelli Jo Allergies, Adverse Reactions, Alerts Substance Reaction Severity Status ciprofloxacin Active doxycycline unknown Active magnesium sulfate stomach issues Active sulfa drugs Abdominal pain Active Macrobid Active Flagyl diarrhea Active Augmentin abdominal discomfort Active Bactrim 1 nausea sob unknown Active Adhesive bandage rash Active milk products Diarrhea Stomach pain Active 1diarrhea which sent patient to ER Immunizations Given and Recorded Vaccine Date Status Refusal Reason influenza virus vaccine, inactivated 12/13/21 Give n pneumococcal 13-valent vaccine 1 11/24/16 Given tetanus/diphtheria/pertuss, acel (Tdap) 10/10/14 G iven zoster vaccine live 2 11/02/11 Recorded pneumococcal 23-valent vaccine 01/01/08 Recorded 1Early/Late Reason: Other : This was ordered prior to patient's visit today. 2Result Comment: [10/10/2014] per patient Medications CoQ-10 with Black Pepper Extract Start: 01/23/23 14:12:00 EST, 100 mg =, PO, Daily Start Date: 01/23/23 Status: Ordered Cymbalta 30 mg oral delayed release capsule Start: 04/05/23 14:14:00 EST, 1 cap, PO, Daily, Disp# 30 cap, Refills: 1, Pharmacy: [id number] Start Date: 04/05/23 Stop Date: 06/04/23 Status: Ordered dicyclomine 10 mg oral capsule Start: 03/29/23 15:06:00 EST, 1 cap, PO, qid, Disp# 120 cap, Refills: 2, PRN: spasms, Pharmacy: [id number] Start Date: 03/29/23 Status: Ordered Entocort EC 3 mg oral delayed release capsule Start: 12/19/22 12:36:00 EDT, 1 cap, PO, qAM, Disp# 90 cap, Refills: 1, Pharmacy: [id number] Start Date: 12/19/22 Stop Date: 06/17/23 Status: Ordered Gemtesa 75 mg oral tablet Start: 09/19/22 14:15:00 EDT Start Date: 09/19/22 Status: Ordered KlonoPIN 0.5 mg oral tablet Start: 11/23/22 14:00:00 EDT, 1 tab, PO, bid, Disp# 60 tab, Refills: 3, as needed prn, Pharmacy: [id number] Start Date: 11/23/22 Status: Ordered Lialda 1.2 g oral delayed release tablet Start: 03/23/23 14:53:00 EST, 1 tab, PO, Daily, Disp# 30 tab, Refills: 5, Pharmacy: [id number] Start Date: 03/23/23 Stop Date: 09/19/23 Status: Ordered lisinopril 20 mg oral tablet Start: 08/18/22 8:01:00 EDT, 1 tab, PO, Daily, Disp# 90 tab, Refills: 3, Pharmacy: [facility] Start Date: 08/18/22 Stop Date: 08/13/23 Status: Ordered Lomotil 2.5 mg-0.025 mg oral tablet Start: 05/09/23 14:20:00 EDT, 2 tab, PO, q6h, Disp# 240 tab, Refills: 5, PRN: as needed for loose stool, Pharmacy: [id number] Start Date: 05/09/23 Stop Date: 11/05/23 Status: Ordered Metamucil Start: 03/28/23 11:51:00 EST, 2 caps po BID Start Date: 03/28/23 Status: Ordered metoprolol succinate 100 mg oral tablet, extended release Start: 04/07/22 12:49:00 EST, 1 tab, PO, Daily, Disp# 90 tab, Refills: 3, Pharmacy: [facility] Start Date: 04/07/22 Status: Ordered multivitamin Start: 10/13/22 12:53:00 EDT, 1 tab, PO, Daily Start Date: 10/13/22 Status: Ordered Problem List Condition Confirmation Course Effective Dates [...] stress Confirmed Active Tobacco user Confirmed Active Procedures Procedure Date Related Diagnosis Body Site [...] the 2013 carotid doppler study. 7fusion 8carotid Results Orders for Microbiology Reports Name Date C difficile Toxin Gene PCR Assay. (C DIF FICILE TOXIN) 05/07/23 Microbiology Reports TEST:C.Diff Toxin STATUS:Auth (Verified) BODY SITE: SOURCE:Stool COLLECTED DATE/TIME:05/07/23 9:00 PM Status FINAL 2023 Social History Social History Type Response Tobacco Former smoker, Cigar ettes, Stopped age 73 Years. Smoking Status Current every day li ght smoker Sex Female Patient Care team information Care Team Personnel Name: GINNY Kellgog Tara Position: Nurse Pract - Family Med Member Role: Lifetime Relationship Address: Address: [address] [place] [address] [place] Name: DO Ruiz Franklin J Position: Physician - Family Med Member Role: Lifetime Relationship Address: Address: [address] [place] [address] Name: DO Pop Kristen M Position: Physician - Family Med Member Role: Primary Care Provider Address: Address: [address] [facility] [address] [place] [address] Care Team Related Persons Name: EDIN COREA Address: home [address] [facility], [id number]
--- OUTSIDE RECORDS SUMMARY | 2023-06-30 08:48 | External Medical Summary | Continuity of Care Document ---
Author Name Unknown Organization [address] [id number] Care Team Providers Care Card Dealer Name Role Phone Kiesha Neema M Primary Care Physician [phone] Encounter [facility] [id number] Date(s): 05/22/23 - 05/22/[address] [address] [phone] Encounter Diagnosis Body mass index [BMI] 19.9 or less, adult(Discharge Diagnosis) - 05/22/23 Collagenous colitis(Discharge Diagnosis) - 05/22/23 Discharge Disposition: Home or Self Care Attending Physician: MD Bonilla Brian D Referring Physician: CHLOÉ Cardoso Kelli Jo Allergies, [...] to ER Assessment and Plan Extracted from: Title:GI OV Author:MD Bonilla Brian D Date: 05/22/23 Impression and Plan collagenous colitis----stable on lomitil, fiber, mesalamine and entocort. OV 3 month with Mabel Immunizations Given and Recorded Vaccine Date Status [...] Daily, Disp# 30 cap, Refills: 1, Pharmacy: [id number] Start Date: 04/05/23 Stop Date: 06/04/23 Status: Ordered dicyclomine 10 mg oral capsule Start: 03/29/23 15:06:00 EST, 1 cap, PO, qid, Disp# 120 cap, Refills: 2, PRN: spasms, Pharmacy: [id number] Start Date: 03/29/23 Status: Ordered Entocort EC 3 mg oral delayed release capsule Start: 05/17/23 17:07:00 EDT, 2 cap, PO, qAM, Disp# 180 cap, Refills: 0, Pharmacy: [id number] Start Date: 05/17/23 Stop Date: 08/15/23 Status: Ordered Gemtesa 75 mg oral tablet Start: 09/19/22 14:15:00 EDT Start Date: 09/19/22 Status: Ordered KlonoPIN 0.5 mg oral tablet Start: 11/23/22 14:00:00 EDT, 1 tab, PO, bid, Disp# 60 tab, Refills: 3, as needed prn, Pharmacy: [id number] Start Date: 11/23/22 Status: Ordered Lialda 1.2 g oral delayed release tablet Start: 05/17/23 17:07:00 EDT, 2 tab, PO, qhs, Disp# 60 tab, Refills: 5, Take in the evening., Pharmacy: [id number] Start Date: 05/17/23 Stop Date: 11/13/23 Status: Ordered lisinopril 20 mg oral tablet Start: 08/18/22 8:01:00 EDT, 1 tab, PO, Daily, Disp# 90 tab, Refills: 3, Pharmacy: [facility] Start Date: 08/18/22 Stop Date: [...] Daily, Disp# 90 tab, Refills: 3, Pharmacy: [facility] Start Date: 04/07/22 Status: Ordered multivitamin Start: 10/13/22 12:53:00 EDT, 1 tab, PO, Daily Start Date: 10/13/22 Status: Ordered Mental Status 05/22/23 Barriers to Learning one year None evide nt Mandatory Health Literacy Documentation Yes Health Literacy Communication Barriers N ever Primary Language [place] Problem List Condition Confirmation Course Effective Dates [...] Diagnosis Diagnosis Type Effective Dates Health Status Clinical Service Informant Body mass index [BMI] 19.9 or less, adult Discharge Diagnosis 05/22/23 Non-Specified Collagenous colitis Discharge Diagnosis 05/22/23 Procedures Procedure Date Related Diagnosis Body Site [...] Most recent to oldest [Reference Range]: 1 Height 161.6 cm (05/22/23 1:18 PM) Patient Weight 50.4 kg (05/22/23 1:18 PM) Body Mass Index 19.3 kg/m2 (05/22/23 1:18 PM) Blood Pressure 188/80mmHg (05/22/23 1:18 PM) Cuff Pulse Pressure 108 mmHg (05/22/23 1:18 PM) BP Location # 1 Left Arm (05/22/23 1:18 PM) Social History Social History Type Response Tobacco Former smoker, Cigar ettes, Stopped age 73 Years. Smoking Status Current some day lig ht smoker Sex Female Gastroenterology Outpatient Note * MD Bonilla Brian D: MODIFY, SIGN, VERIFY, PERFORM Event Display: Gastroenterology Outpt Note Authored Date: Patient: AMERICO COREA Age: 83 years Sex: Female : 1940 Associated Diagnoses: None Author: MD Bonilla Brian D Chief Complaint 05/22/2023 13:15 EDT Pt here for f/u for diarrhea. Since starting current medication regime, diarrheais much improved. Pt states that bowels are mushy, not watery. History of Present Illness 05/22/2023 DATA reviewed: GABRIELA Cardoso PA-C 04/05/2023 and HPI copied here: Prior records: 08/22/2011: Colonoscopy notes are reviewed performed due to history of clinically significant diarrhea which demonstrated multiple diverticula in the sigmoid colon with biopsies obtained from the ascending, transverse, descending colon for evaluation of microscopic colitis. Pathology results demonstrated findings consistent with possible early microscopic colitis but not specific for either collagenous or lymphocytic colitis 03/06/2012: GI office visit notes are reviewed from Dr. Collins. Patient with history of IBS dating back to her 20s. Has trialed Pepto-Bismol and Imodium in the past without improvement of diarrhea. Trialed Bentyl which cause dry mouth and patient was switched to Levsin which seemed to improve symptoms somewhat. Tested for celiac disease and serologies were negative. Patient started on Lomotil 3 times daily and probiotic once daily with some improvement of symptoms. Could consider adding tricyclic antidepressant if diarrhea and weight loss continue. Follow-up with GI as needed. 01/14/2020: Colonoscopy notes are reviewed from [facility] by [facility] physicians demonstrated normal entire examined colon with biopsies obtained. Distal rectum and anal verge normal on retroflexion. Pathology results demonstrated findings consistent with collagenous colitis negative for dysplasia or malignancy. Was advised to begin budesonide 9 mg daily for 6 to 8 weeks and then plan was to assess response before beginning to taper medication. Patient was advised to avoid nonsteroidal anti-inflammatory medication and use of artificial sweeteners. 01/11/2021: [facility] office visit notes are reviewed. Patient having difficulty with diarrhea. Taking 3 Entocort daily and cholestyramine. Recommended follow-up with GI. 02/01/2021: Letter from [facility] GI is reviewed regarding microscopic colitis. Patient advised to continue budesonide 9 mg for 2 weeks then cut down to 6 mg for the 2 weeks then stay on 3 mg once daily for 6 months. Advised to continue colestipol twice daily for 1 month and daily for 1 month then stop. Also advised to use Imodium as needed. 01/04/2022 GI OV: the patient presents today for follow-up evaluation of recent worsening and diarrhea. She has history of microscopic colitis. Patient contacted the office 01/03/2022 with complaintsof diarrhea after beginning Myrbetriq 25 mg daily for overactive bladder. She reports that she added Entocort 3 mg daily back to her regimen. She also began taking Lialda 1.2 g daily per her previousregimen. She presents today for follow-up of diarrhea. Reports that she began experiencing 1-2 episodes in the morning of pure liquid stools. She reports that she does well after using Lomotil for symptoms. She feels the Entocort has been helpful. 03/04/2022: Office phone call notes reviewed. Taking Entocort 3 mg and Mesalamine 1.2 g daily. Qing discuss at schedule OV 03/16/2022 GI telephone: The patient follows up today for history of diarrhea and microscopic colitis. She has actually had both lymphocytic and collagenous colitis in the past. Her most recent colonoscopy from 12/2019 with pathology consistent with collagenous colitis. She has struggled with regimen to help control her diarrhea. Most recently has been on Entocort 3 mg and mesalamine 1.2 g daily. She actually has been off of this regimen for the last 10 days as she has not been experiencing diarrhea. She reports that she is actually had several days of no bowel movement and plans to add MiraLAX back to her regimen. She knows to restart the Entocort with any flares. Her first line is Lomotil and she verbalizes understanding of this. She does request refill for Bentyl as this is helpful for her abdominal cramping symptoms. Unfortunately her spouse tested positive for COVID recently. She isawaiting her own COVID testing results. She does note she has increased chest congestion which is responding to Mucinex. 06/15/2022 GI telephone: The patient follows up today for history of diarrhea and microscopic colitis. She has actually had both lymphocytic and collagenous colitis in the past. Currently using Entocort 3mg daily prn as well as Lomotil prn. She will also use dicyclomine prn for abdominal cramping. She has been doing well with this regimen. Patient reports she began a Culturelle probiotic about a week ago. She has no other voiced GI complaints today. 09/19/2022 GI telephone: The patient follows up today for history of diarrhea and microscopic colitis. She has actually had both lymphocytic and collagenous colitis in the past. Currently using Entocort 3mg daily, mesalamine 1.2 grams daily, probiotic daily as well as Lomotil prn. She will also use dicyclomine prn for abdominal cramping. She has been doing well with this regimen. She has no other voiced GI complaints today. 01/23/2023 GI Telephone ([employer]): Pt reports she continues to do better and better. She continues on the medication rx'd by Adilene Clay. Mesalamine and Budesonide slowly improved her sxs. She no longer has any terrible diarrhea. First normal BM in a long time recently. Having formed BMs for a few months, even with some dairy consumption. She reports cutting back one medication occ or skips a day to keep things going. Hasn't used her Lomotil in 1.5 weeks. Rare occasion uses her anti-spasmodic. 04/05/2023 OV ([employer]): Patient returns today with questions about her current regimen. She states that she has been following a regimen as recommended on a Monday and by Monday she was reporting formed regular bowel movements. She remained on this regimen but began to note that she was becoming bound up. She decided to decrease by removing her midday Lomotil and decreasing 1 fiber capsule in the morning in the afternoon. With this she reports that she is having 1 daily formed bowel movement withno urgency. Her current regimen is 1 Entocort, 2 fiber capsules, 1 teaspoon of Lomotil, and 1 mesalamine in the morning. She no longer is taking any type of medication during lunch as this is the Lomotil she has skipped. At bedtime she is taking another teaspoon of Lomotil and the remaining 2 fibercapsules. Patient does spend a fair amount of her time today off subject discussing her life history being full of tragedies. She informs me that her father when she was 12 due to a heart attack, her brother later committed suicide, and a son of hers was murdered among other family tragedies. She reports that upon waking in the morning her stomach is already anxious and her nerves setting. She is prescribed a benzodiazepine by her family provider for restless leg. She states that she only takes 1 or 2 of these at night as if she takes them during the day they make her tired and upon waking she does not feel good. She requests something more like Cymbalta; which is what her daughter takes and it works well for her ` Other data: Stool for Cdiff 2023 neg Per patient 4 days increased Entocort to 2 tabs daily, switched her from fiber gummies to metamucilpowder bid. She is taking 2 mesalamin at bedtime Also 2 lomotil tabs tid. On current regimen has 1 BM in am and none throughout the rest of the day. No abd pain. Some back pain. She would like to gain some weight and recommended protein drinks and making smoothies and eating every 2 hours. Review of Systems Constitutional: Negative. Eye: Negative. Ear/Nose/Mouth/Throat: Negative. Respiratory: Negative. Cardiovascular: Negative. Gastrointestinal: Negative except as documented in history of present illness. Genitourinary: Negative. Hematology/Lymphatics: Negative. Endocrine: Negative. Immunologic: Negative. Musculoskeletal: Negative. Integumentary: Negative. Neurologic: Negative. Psychiatric: Anxiety. Health Status Allergies: Allergic Reactions (Selected) Severity Not Documented Augmentin- Abdominal discomfort. Bactrim- Nausea, sob and unknown. Ciprofloxacin- No reactions were documented. Doxycycline- Unknown. Flagyl- Diarrhea. Macrobid- No reactions were documented. Magnesium sulfate- Stomach issues. Milk products- Stomach pain and diarrhea. Sulfa drugs- Abdominal pain. Nonallergic Reactions (Selected) Severity Not Documented Adhesive bandage- Rash.. Current medications: (Selected) Prescriptions Prescribed Cymbalta 30 mg oral delayed release capsule: 1 cap, PO, Daily, for 30 day, 30 cap, 1 Refill(s) Entocort EC 3 mg oral delayed release capsule: 2 cap, PO, qAM, for 90 day, 180 cap, 0 Refill(s) KlonoPIN 0.5 mg oral tablet: 1 tab, PO, bid, as needed prn, 60 tab, 3 Refill(s) Lialda 1.2 g oral delayed release tablet: 2 tab, PO, qhs, for 30 day, Take in the evening., 60 tab,5 Refill(s) Lomotil 2.5 mg-0.025 mg oral tablet: 2 tab, PO, q6h, for 30 day, PRN: as needed for loose stool, 240 tab, 5 Refill(s) dicyclomine 10 mg oral capsule: 1 cap, PO, qid, PRN: spasms, 120 cap, 2 Refill(s) lisinopril 20 mg oral tablet: 1 tab, PO, Daily, for 90 day, 90 tab, 3 Refill(s) metoprolol succinate 100 mg oral tablet, extended release: 1 tab, PO, Daily, 90 tab, 3 Refill(s) Documented Medications Documented CoQ-10 with Black Pepper Extract: 100 mg, PO, Daily Gemtesa 75 mg oral tablet: Metamucil: 2 teaspoons po in am and qhs multivitamin: 1 tab, PO, Daily. 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 / Confirmed Dyslipidemia / SNOMED CT 7758780039 / Confirmed Dysuria / SNOMED CT 55134462 / Confirmed Effusion, left shoulder / SNOMED CT 39054867 / Confirmed Generalized OA / SNOMED CT 110126106 / Confirmed History of tobacco use / SNOMED CT 7960598047 / Confirmed Hx of diarrhea / SNOMED CT 173807479 / Confirmed Hypertension / SNOMED CT 84594961 / Confirmed INSOMNIA / ICD-9-CM 780.5 / Confirmed Left hip pain / SNOMED CT 80943714 / Confirmed Left knee DJD / SNOMED CT 0096904234 / Confirmed Lower back pain / SNOMED CT 047328627 / Confirmed Lymphocytic colitis / ICD-9-CM 558.9 / Confirmed Osteoporosis / SNOMED CT 700888335 / Confirmed Pain / SNOMED CT 16788396 / Confirmed Rotator cuff strain / SNOMED CT 673188300 / Confirmed Sacroiliitis / SNOMED CT 60690499 / Confirmed Situational stress / SNOMED CT 208430422 / Confirmed Tobacco user / SNOMED CT 304602739 / Confirmed All Problems Abnormal ankle brachial index (ALY) / SNOMED CT 185193687 / Confirmed Anxiety / SNOMED CT 54122450 / Confirmed Carotid artery plaque / SNOMED CT 469232984 / Confirmed Chronic left SI joint pain / SNOMED CT 412280984 / Confirmed Chronic right SI joint pain / ICD-9-CM 724.6 / Confirmed Collagenous colitis / SNOMED CT 72958767 / Confirmed Cool skin / SNOMED CT 9738788984 / Confirmed Depression, major, recurrent, mild / SNOMED CT 946071327 / Confirmed Diarrhea / SNOMED CT 338197377 / Confirmed DJD of shoulder / SNOMED CT 949501943 / Confirmed Dyslipidemia / SNOMED CT 2554173181 / Confirmed Dysuria / SNOMED CT 95111145 / Confirmed Effusion, left shoulder / SNOMED CT 36196913 / Confirmed Generalized OA / SNOMED CT 480879999 / Confirmed History of tobacco use / SNOMED CT 4300568804 / Confirmed Hx of diarrhea / SNOMED CT 438246325 / Confirmed Hypertension / SNOMED CT 01281447 / Confirmed INSOMNIA / ICD-9-CM 780.5 / Confirmed Left hip pain / SNOMED CT 40558179 / Confirmed Left knee DJD / SNOMED CT 1376606646 / Confirmed Lower back pain / SNOMED CT 574862117 / Confirmed Lymphocytic colitis / ICD-9-CM 558.9 / Confirmed Osteoporosis / SNOMED CT 544095431 / Confirmed Pain / SNOMED CT 75778018 / Confirmed Rotator cuff strain / SNOMED CT 990871602 / Confirmed Sacroiliitis / SNOMED CT 46825795 / Confirmed Situational stress / SNOMED CT 674283780 / Confirmed Tobacco user / SNOMED CT 730909998 / Confirmed. Histories Past Medical History: Active Sacroiliitis (66600870): Onset on 04/15/2021 at 80 years. Resolved Bronchitis (490): Onset on 10/29/2012 at 72 years. Resolved. Zoster vaccine (V04.89): Onset on 10/06/2010 at 70 years. Resolved on 10/11/2010 at 70 years. Tobacco abuse (305.1): Resolved. COLITIS (009.0): Resolved on 09/08/2011 at 71 years. Tobacco user (694783335): Resolved. Vaginitis (71742022): Resolved. Leukopenia (131971618): Resolved. Medicare tresckow exam (187463683): Resolved on 08/19/2014 at 74 years. Acute UTI (296485700): Resolved on 10/13/2014 at 74 years. Back pain (522450691): Resolved on 10/14/2014 at 74 years. Insect bite (715260799): Resolved on 10/14/2014 at 74 years. Acute sinus infection (47303515): Resolved on 10/30/2014 at 74 years. Allergic cough (292676013): Resolved. Well adult exam (238265124): Resolved on 07/01/2015 at 75 years. Corneal abrasion (119557368): Resolved on 09/15/2015 at 75 years. Maj-lqri-tymcbeg adverse reaction to medication (259110093): Resolved on 09/15/2015 at 75 years. Shoulder pain, left (9327649179): Resolved. Sciatica (9547438154): Resolved on 03/30/2016 at 75 years. Medicare annual wellness visit, subsequent (118266882): Resolved on 09/21/2016 at 76 years. Fall (310741445): Resolved on 03/20/2017 at 76 years. Urine frequency (813291793): Resolved. Acute UTI (1820548303): Resolved. Weight loss (071657253): Resolved.. Family History: Type II diabetes mellitus Unknown (daughter) Cardiovascular disease Father () Stroke PGF Heart attack Father () High Blood Pressure Mother () PGF . Procedure history: Chest X-ray (3078682874) on 03/21/2022 at 81 Years. Comments: 03/21/2022 12:20 ISAAK Ndiaye LPN, Janel Mcnulty Impression; no acute process. Pessary, device (1937136100) on 08/24/2021 at 81 Years. Comments: 08/25/2021 09:37 KARY Acosta RN, Massiel 2 ring pessary for pelvic organ prolapse Fluoroscopy (41164831) on 03/31/2021 at 80 Years. Comments: 03/31/2021 17:35 ISAAK Jackson MA, Donna Guided cooled denrvation EGD (esophagogastroduodenoscopy) gastric outlet reduction (4135042115) on 01/14/2020 at 79 Years. Colonoscopy (946915297) on 01/14/2020 at 79 Years. Comments: 01/28/2020 09:54 ISAAK Soliman LPN, Ashley impression: - the entire examined colon is normal. Biopsied. - the distal rectum and anal verge are normal on retro flexion view Upper GI endoscopy (0711189277) on 01/14/2020 at 79 Years. Comments: 01/28/2020 09:55 ISAAK Soliman LPN, Ashley impression: - normal esophagus - normal stomach - normal examined duodenum - no specimens collected CT of lungs (screening) (245981512) on 05/03/2018 at 77 Years. Comments: 05/07/2018 09:27 EDT - KYM Hood Allison A few scattered tiny pulmonary nodules measuring up to 3mm which are primarily located at the lung bases and demonstrate a tree-in-bud pattern. This favors mild infectious bronchiolitis and may be chronic. Otherwise, no suspicious pulmonary nodules. A 3cm hypodense right thyroid nodule. This is similar to the 2013 carotid doppler study. Colonoscopy (255925369) on 06/01/2015 at 75 Years. Lumbar spine (547691144) in 2003 at 63 Years. Comments: 06/06/2011 10:23 EDT - Mariel Schmid fusion Hysterectomy (797688372) in 1993 at 53 Years. Knee replacement (557201663). Duplex scan performed (409947723). Comments: 09/15/2015 11:15 EDT - ARINA Jackson Donna carotid. Social History Social & Psychosocial Habits Alcohol 07/06/2013 Risk Assessment: No Risk 07/06/2013 Use: Current Type: Liquor Frequency: 1-2 times per week Average drinks per episode in last year: 4 Exercise 09/21/2016 Times per week: 3-4 times/week Comment: 15 min 3 times per week does back exercises that she was taught in PT. - 09/21/2016 10:00 - KYM Hill Christal 09/21/2016 Risk Assessment: Regular exercise Home/Environment 09/21/2016 Lives with: Spouse Comment: Single family home - 09/21/2016 10:03 - KYM Hill Christal Tobacco 07/06/2013 Use: Former smoker Type: Cigarettes Stopped at age: 73 Years 10/10/2014 Risk Assessment: Medium Risk . Physical Examination Vital Signs 05/22/2023 13:18 EDT Systolic Blood Pressure 188 mmHg Diastolic Blood Pressure 80 mmHg BP Location # 1 Left Arm Cuff Pulse Pressure 108 mmHg Pulse 84 Measurements from flowsheet : Measurements 05/22/2023 13:22 EDT Osteoporosis Screening Tool -6.52 05/22/2023 13:18 EDT Height 161.6 cm Height Method Patient stated Patient Weight 50.4 kg Weight 50.400 kg Weight Method Standing Scale Body Mass Index 19.3 kg/m2 Body Surface Area 1.5 m2 [place] Body Weight 53.8 kg Height/Weight Refused Height/Weight Taken 04/05/2023 12:59 EST Osteoporosis Screening Tool -6.20 04/05/2023 12:57 EST Patient Weight 51 kg Weight 51.000 kg Weight Method Standing Scale 03/28/2023 12:00 EST Osteoporosis Screening Tool -6.44 03/28/2023 11:58 EST Height 161.6 cm Height Method Standing Patient Weight 49.8 kg Weight 49.800 kg Weight Method Standing Scale Body Mass Index 19.07 kg/m2 Body Surface Area 1.5 m2 [place] Body Weight 53.8 kg Height/Weight Refused Height/Weight Taken 10/13/2022 13:00 EDT Osteoporosis Screening Tool -6.28 10/13/2022 12:55 EDT Height 161.6 cm Height Method Standing Patient Weight 50.6 kg Weight 50.600 kg Weight Method Standing Scale Body Mass Index 19.38 kg/m2 [place] Body Weight 53.8 kg 07/13/2022 11:49 EDT Osteoporosis Screening Tool -6.76 07/13/2022 11:46 EDT Patient Weight 48.2 kg Weight 48.200 kg Weight Method Standing Scale Height/Weight Refused Patient Refused Height 04/25/2022 14:12 EST Osteoporosis Screening Tool -6.36 04/25/2022 14:10 EST Patient Weight 49.2 kg Weight Method Standing Scale Height/Weight Refused Patient Refused Height 03/31/2022 14:45 EST Osteoporosis Screening Tool -6.44 03/31/2022 14:38 EST Height 161.8 cm Height Method Standing Patient Weight 48.8 kg Weight Method Standing Scale Body Mass Index 18.64 kg/m2 Body Surface Area 1.48 m2 [place] Body Weight 54 kg Height/Weight Refused Height/Weight Taken 02/23/2022 13:27 EST Osteoporosis Screening Tool -6.04 02/23/2022 13:23 EST Patient Weight 50.8 kg Weight Method Standing Scale Height/Weight Refused Height/Weight Taken Gastrointestinal: Soft, Non-tender, Non-distended, Normal bowel sounds. Impression and Plan collagenous colitis----stable on lomitil, fiber, mesalamine and entocort. OV 3 month with Mabel Electronic Signature on File Electronically Reviewed/Signed by: Dave Bonilla MD Author Signature Dt/Tm:05/22/2023 01:43 PM Division of Gastroenterology BDD Patient Care team information Care Team Personnel Name: GINNY Kellogg Tara Position: Nurse Pract - Family Med Member Role: Lifetime Relationship Address: Address: [address] [place] [address] [place] Name: DO Ruiz Franklin J Position: Physician - Family Med Member Role: Lifetime Relationship Address: Address: [address] [place] [address] [place] Name: DO Pop Kristen M Position: Physician - Family Med Member Role: Primary Care Provider Address: Address: [address] [place] [address] [place] Care Team Related Persons Name: EDIN COREA Address: home [address] [address] [facility] [address], [phone]
--- OUTSIDE RECORDS SUMMARY | 2023-06-30 08:48 | External Medical Summary ---
Author Name Unknown Address Unknown Organization [id number]:[facility]AT[facility] - [address] [place] [address] Laboratory Report Ordering Provider Test Date Status REINALDO NUNEZ 05/30/2023 20:28:00 Final Observation Date Value Abnormality Reference (Units ) Status Magnesium 05/30/2023 20:28:00 2.2 1.5-2.6 (m g/dL) Final Performing Location LABORATORY [facility] - [address] [place] [id number]
[2023-06-30 08:57] LABS: Calcium 9.1 mg/dl (8.6-10.3); Creatinine Clr Calc Pharmacy 44.6 ml/min; Est GFR (African American) 96.1 ml/min; Est GFR (Non-African American) 82.9 ml/min; Magnesium 1.8 mg/dl (1.7-2.4); Potassium 3.8 mmol/L (3.5-5.1)
--- NOTE | 2023-06-30 18:20 | Discharge Summary ---
Discharge Summary Date of Service June 30, 2023 Notes For Next Care Provider - CBC and CMP lab work ordered for 1 week after discharge. Follow-up with PCP afterwards. - Consider starting Remeron for both appetite stimulation and management of anxiety/depression. - Patient needs to find a balance with her bowel regimen, given her continued cycling between diarrhea and constipation. Medication Changes From Visit - Decrease Lomotil to 1 tablet daily. - Hold HCTZ and Metamucil until PCP follow-up appointment. Admission HPI Per Admitting Provider Taylor is an 83yo female with PMH of IBS, anxiety, depression, dyslipidemia, collagenous colitis, HTN, tobacco use, and arthritis. Patient presented for diarrhea on 06/28 x 3 episodes. Patient has an extensive history of collagenous colitis, and recently stopped her Lomotil 2 weeks ago due to bloating, loss of appetite, and abdominal pain secondary to feeling backed up. Initially she felt okay when stopping, but then started to develop abdominal cramping, gas pain, bowel incontinence, and diarrhea (which started today). Nonbloody diarrhea. She describes it as a "chocolate pudding", that is similar to past episodes of being off Lomotil. She also notes that she has had decreased appetite, which has been an ongoing issue for the past 2 years. Unintentional weight loss over the past 2 years from 180lb --> 110lb. patient would not like to see a dietitian while inpatient. No history of eating disorders. Patient does note that she is lactose intolerant. No recent antibiotic use. She did note that she fell 3 weeks ago and fractured her pubic ramus bone; has been using a walker since. She has been using Toradol for the pain, but generally likes to stay away from opioids, as it causes her GI discomfort. Patient was recently started on HCTZ and amlodipine on June 08 for ankle swelling. Patient does endorse infrequent tobacco cigarette smoking; 2-3 cigarettes/day. No recent alcohol use. Patient's vitals are stable at time of admission. ED Course: NSS 500 mL IV ROS: Patient endorses abdominal cramping, GI discomfort, diarrhea, mild bilious vomiting x 1 episode (resolved a week ago), back pain, loss of appetite, and unintentional weight loss. Patient denies fever, chills, lightheadedness, dizziness, headache, chest pain, chest palpitations, SOB, pleuritic chest pain, cough, abdominal pain, nausea, bloody diarrhea, saddle anesthesia, changes in urinary habits, burning with urination, blood in the urine, or numbness or tingling in the arms or legs. Admission Exam Per Admitting Provider General: no acute distress; non-toxic appearing; cachectic; cooperative; SpO2 97% on RA HEENT: normocephalic, atraumatic; no scleral icterus; PERRLA w/ EOMs intact; moist mucus membrane; vision and hearing grossly intact Neck: supple; no lymphadenopathy; trachea midline Skin: warm, dry without signs of tenting; no cyanosis; no rashes, bruising, lesions, or erythema noted CV: chest wall NTP; RRR; S1/S2 normal; no murmurs/rubs/gallops; pulses intact and symmetric at radial, DP, and PT Lungs: no acute respiratory distress; symmetrical chest wall expansion; clear breath sounds across all lung urrutia w/o adventitious sounds; no wheezing ABD: Soft, NTP; BS present; no rebound/guarding; no distention MSK: no tics or fasciculations; no edema noted in the LEs b/l, nonerythematous Neuro: A&Ox3; normal mood and affect; fluent speech; no focal deficits; sensation grossly intact in the LEs b/l Principal Dx & Hospital Course #1 = Principal Diagnosis (1) Diarrhea: Diarrhea x 3 episodes on 06/28 Non-bloody, no recent antibiotic use Hx of collagenous colitis Patient was previously on Lomotil, but stopped 2 week ago due to bloating, loss of appetite, and abdominal pain Lomotil decreased to once daily; patient was previously taking 2 tablets daily, would recommend trying to find a good balance for her in the outpatient setting (2) Hyponatremia: Na 125 on arrival Patient started on HCTZ on June 08 for ankle swelling, which was likely the main contributor Also in the setting of dehydration and GI losses Patient received IVF with NSS --> NA increased to 131 Encourage increased fluid and food intake Hold HCTZ until seen by PCP outpatient Follow-up with lab work in 1 week upon discharge (3) Unintentional weight loss: Patient reports she has lost 70 pounds in the past 2 years (180lb --> 110lb) Multifactorial, but in the setting of GI difficulties and intermittent constipation/diarrhea causing loss of appetite While patient would likely benefit from a dietitian consult, she would not like one during hospitalization Recommend Remeron (mirtazapine), as it is likely to help with weight gain and her recent feelings of anxiety/depression -- plan for patient to further discuss this with PCP (4) Pubic ramus fracture: Patient fell 3 weeks ago, and reports that she fractured her pubic ramus bone She has been using a walker since Fall precautions Patient was considering Prolia shots, but patient's had concerns as it can cause diarrhea (5) Collagenous colitis: Biopsy December 2019 (6) Anxiety: (7) Depression: Plan CODE STATUS: DNR/DNI Discharge Exam General: No acute distress, nondiaphoretic, well-developed, well-nourished. Skin: The skin was without rashes, erythema, edema, or bruising. Cardiac: Regular rate and rhythm without murmurs gallops or rubs. Pulm: Clear to auscultation bilaterally without wheezes, rales or rhonchi. No retractions or accessory muscle use. Abdominal: Positive bowel sounds x 4. Soft, nontender, without masses or organomegaly. No guarding or rebound tenderness. Neuro: A&O x3. No focal neurological deficits. Updated Medication List Medication Instructions Recorded Confirmed Type metoprolol succinate 100 mg 100 mg PO QAM 04/16/20 06/29/23 History tablet,extended release 24 hr budesonide 3 mg 6 mg PO QAM 11/18/21 06/29/23 History capsule,delayed,extended release amlodipine 5 mg tablet 5 mg PO QAM 06/29/23 06/29/23 History clonazepam 0.5 mg tablet 0.5 - 1 mg PO BID PRN Anxiety 06/29/23 06/29/23 History lisinopril 20 mg tablet 20 mg PO QAM 06/29/23 06/29/23 History mesalamine 1.2 gram tablet,delayed 2.4 g PO HS 06/29/23 06/29/23 History release vibegron 75 mg tablet (Gemtesa) 75 mg PO QAM 06/29/23 06/29/23 History diphenoxylate-atropine 2.5 1 tab PO DAILY Diarrhea #0 tabs 05/10/24 05/09/24 Rx mg-0.025 mg tablet Hospital Stay Data Consultations 06/29/23 20:26 ED Decision to Admit Stat Diagnostic Imagining Performed 06/29/23 18:20 CT abd pelvis wo con Stat Pending Results Patient Have Any Pending Studies at Discharge: No Discharge Instructions Given to Patient (Per Discharging Provider) Carlito Arreola were admitted to the hospital because of multiple episodes of diarrhea and hyponatremia (low sodium). The diarrhea was most likely due to a change in your bowel regimen, specifically stopping Lomotil approximately 2 weeks ago. The hyponatremia is most likely multifactorial between the diarrhea, dehydration and poor oral intake, and the diuretic (hydrochlorothiazide, also known as HCTZ) you were prescribed in mid May. You were given some IV fluids, which did raise your sodium level compared to what it was at on admission. Upon discharge from the hospital: * Do NOT take your diuretic (HCTZ) until you see your primary care provider (PCP). * Take 1 tablet of Lomotil daily. -- It is important that we find a balance with your bowel regimen. Given you were taking 2 tablets of Lomotil prior to this hospitalization, I believe taking 1 tablet daily will be a better balance for you at this time. Further changes in your bowel regimen can be discussed with your PCP. * Do NOT take Metamucil (psyllium powder) until you see your PCP. * Drink as many fluids and eat as much as tolerated. This is important for staying hydrated and maintaining your nutritional status. * You will get blood work done next week. -- This is to monitor your electrolytes. A prescription for blood work has been printed with your discharge paperwork, and can be taken to any lab for it to be drawn. * Follow-up with your PCP next week. Their office will call you with your appointment details. -- You can discuss starting Remeron (mirtazapine) at this time. This will likely help with both weight gain and feelings of anxiety/depression. * Continue taking your other medications as prescribed. Please return to the hospital if you experience any of the following: Persistent diarrhea, persistent constipation, severe abdominal pain, confusion, lethargy, dizziness, difficulty breathing, chest pain, or passing out. It was a pleasure taking care of you while you were in the hospital, Dayanna Weinstein PA-C Total Time Total Time Spent Total Time Spent (In Minutes): Greater than 30 minutes spent completing this discharge process including direct patient care, medication reconciliation, documentation, review of labs and im ages, and coordination of care. Coding Level of Care Code 09037 INP/OBS DISCH >30 MIN Diagnoses Diarrhea R19.7 Hyponatremia E87.1 Unintentional weight loss R63.4 Pubic ramus fracture S32.599A Collagenous colitis K52.831 Anxiety F41.9 Depression F32.9
--- NOTE | 2023-07-01 06:25 | Electrocardiogram Report ---
Test Reason : Blood Pressure : / mmHG Vent. Rate : 057 BPM Atrial Rate : 057 BPM P-R Int : 198 ms QRS Dur : 098 ms QT Int : 452 ms P-R-T Axes : 084 080 069 degrees QTc Int : 439 ms Sinus bradycardia Otherwise normal ECG When compared with ECG of 21-MAR-2022 11:28, No significant change Confirmed by Roby Smith ([id number]) on 07/01/2023 6:24:47 AM Referred By: REFERRED SELF Confirmed By:Roby Smith
== END 2023-06-30 13:59 | disposition home or self-care (01) ==
LOC: ED 16:51 → 3W 16:51 → SUATTDRO 21:36 → 3W 22:00